=== PATIENT | male | born 1970 | race Hispanic/Latino ===

== ENCOUNTER 2023-06-04 14:44 | Emergency (ER) | payer SELFPAY ==
[2023-06-04 15:26] LABS: Protime INR 1.06
[2023-06-04 15:40] LABS: Absolute Lymphocytes (CBC) 2.9 K/uL (0.7-4.9); Hematocrit 44.2 % (39.6-49.0); Lymphocytes % 12.8 % (15.3-44.8); MCV 92.3 fL (80-100); MPV 9.4 fL (7.6-11.3); Platelets 322 thou/uL (152-406); RBC Red Blood Cell Count 4.79 M/uL (4.33-5.43)
[2023-06-04 15:42] LABS: Albumin 3.6 g/dL (3.4-5.0); Bilirubin Direct 0.1 mg/dL (0-0.2); Bilirubin Indirect, Calculated 0.3 mg/dL (0.2-0.8); Bilirubin Total 0.4 mg/dL (0.2-1.0); Magnesium 2.2 mg/dL (1.6-2.4); Potassium 3.9 mEq/L (3.5-5.1); Protein, Total 7.7 g/dL (6.4-8.2); Troponin High Sensitivity 10.7 pg/mL (<58.9)
--- NOTE | 2023-06-04 15:44 | RAD REPORT ---
EXAM DESCRIPTION: Mitzy Single View06/04/2023 3:27 pm CLINICAL HISTORY: Chest pain COMPARISON: none FINDINGS: The lungs appear clear of acute infiltrate. The heart is normal size IMPRESSION: No acute abnormalities displayed
[2023-06-04] MEDS ORDERED: NA CHLORIDE 0.9% 1,000 ML ONE (16:44)
--- NOTE | 2023-06-04 16:49 | EDPHYS ---
Physician Documentation [facility] Name: Caesar Hurt Age: 52 yrs Sex: Male : 1970 Arrival Date: 06/04/2023 Time: 14:44 Bed 8 Private MD: ED Physician Rakel Keyes HPI: 06/04 16:37 This 52 yrs old Male presents to ER via EMS with complaints of Chest Pain. cp3 16:37 The patient or guardian reports chest pain that is located primarily in the anterior cp3 chest wall, left. Onset: acutely, 1 hour(s) ago. The pain does not radiate. Associated signs and symptoms: The patient has no apparent associated signs or symptoms. The chest pain is described as aching, clutching. Duration: The patient or guardian reports a single episode, that is now resolved. Modifying factors: The symptoms are alleviated by rest, the symptoms are aggravated by cough. Severity of pain: At its worst the pain was moderate today. Historical: - Allergies: 15:12 No Known Allergies; bp - PMHx: 15:12 Hypertensive disorder; bp - Immunization history:: Adult Immunizations up to date. - Social history:: Smoking status: Patient denies any tobacco usage or history of. - Family history:: not pertinent. ROS: 16:37 Constitutional: Negative for fever, chills, and weight loss, Eyes: Negative for injury, cp3 pain, redness, and discharge, ENT: Negative for injury, pain, and discharge, Neck: Negative for injury, pain, and swelling, Cardiovascular: Negative for chest pain, palpitations, and edema, Respiratory: Negative for shortness of breath, cough, wheezing, and pleuritic chest pain, Abdomen/GI: Negative for abdominal pain, nausea, vomiting, diarrhea, and constipation, Back: Negative for injury and pain, : Negative for injury, bleeding, discharge, and swelling, MS/Extremity: Negative for injury and deformity, Skin: Negative for injury, rash, and discoloration, Neuro: Negative for headache, weakness, numbness, tingling, and seizure, Psych: Negative for depression, anxiety, suicide ideation, homicidal ideation, and hallucinations, Allergy/Immunology: Negative for hives, rash, and allergies, Endocrine: Negative for neck swelling, polydipsia, polyuria, polyphagia, and marked weight changes, Hematologic/Lymphatic: Negative for swollen nodes, abnormal bleeding, and unusual bruising. Exam: 16:37 Constitutional: This is a well developed, well nourished patient who is awake, alert, cp3 and in no acute distress. Head/Face: Normocephalic, atraumatic. Eyes: Pupils equal round and reactive to light, extra-ocular motions intact. Lids and lashes normal. Conjunctiva and sclera are non-icteric and not injected. Cornea within normal limits. Periorbital areas with no swelling, redness, or edema. ENT: Nares patent. No nasal discharge, no septal abnormalities noted. Tympanic membranes are normal and external auditory canals are clear. Oropharynx with no redness, swelling, or masses, exudates, or evidence of obstruction, uvula midline. Mucous membranes moist. Neck: Trachea midline, no thyromegaly or masses palpated, and no cervical lymphadenopathy. Supple, full range of motion without nuchal rigidity, or vertebral point tenderness. No Meningismus. Chest/axilla: Normal chest wall appearance and motion. Nontender with no deformity. No lesions are appreciated. Cardiovascular: Regular rate and rhythm with a normal S1 and S2. No gallops, murmurs, or rubs. Normal PMI, no JVD. No pulse deficits. Respiratory: Lungs have equal breath sounds bilaterally, clear to auscultation and percussion. No rales, rhonchi or wheezes noted. No increased work of breathing, no retractions or nasal flaring. Abdomen/GI: Soft, non-tender, with normal bowel sounds. No distension or tympany. No guarding or rebound. No evidence of tenderness throughout. Back: No spinal tenderness. No costovertebral tenderness. Full range of motion. Skin: Warm, dry with normal turgor. Normal color with no rashes, no lesions, and no evidence of cellulitis. MS/ Extremity: Pulses equal, no cyanosis. Neurovascular intact. Full, normal range of motion. Neuro: Awake and alert, GCS 15, oriented to person, place, time, and situation. Cranial nerves II-XII grossly intact. Motor strength 5/5 in all extremities. Sensory grossly intact. Cerebellar exam normal. Normal gait. Psych: Awake, alert, with orientation to person, place and time. Behavior, mood, and affect are within normal limits. Vital Signs: 14:45 BP 148 / 87; Pulse 70; Resp 16; Temp 98; Pulse Ox 98% ; bp 15:41 BP 164 / 94; Pulse 72; Resp 18; Pulse Ox 100% on R/A; ld1 Procedures: 16:37 Performed EKG interpreted by me at 1456 rate 66 normal sinus rhythm no evidence of cp3 acute. MDM: 15:14 Patient medically screened. cp3 16:37 Differential diagnosis: acute myocardial infarction, coronary artery disease congestive cp3 heart failure gastritis, stable angina. HEART Score: History: Moderately Suspicious (1), ECG: Normal (0), Age: > 45 and < 65 years (1), Risk Factors: 1 or 2 risk factors (1), Troponin: < or = 1 x Normal Limit (0), Total Score = 2. 16:37 The patient was not given aspirin in the Emergency Department. Patient reports taking cp3 aspirin within the past 24 hours. Data reviewed: vital signs, nurses notes, EMS record. Consideration of Admission/Observation Escalation of care including admission/observation considered. hospitalization considered. patient declined. I considered the following discharge prescriptions or medication management in the emergency department Medications were administered in the Emergency Department. See MAR. Independent interpretation of the following test(s) in the Emergency Department X-Ray: My interpretation is no actue cardiopulmonary process. Response to treatment: the patient's condition has returned to base line. ED course: patient with elevated wbc count- patient on steroids for an acute bronchitis along with oral antibiotics. 06/04 14:48 Order name: Basic Metabolic Panel; Complete Time: 16:18 bp 06/04 14:48 Order name: CBC with Diff bp 06/04 14:48 Order name: LFT's; Complete Time: 16:18 bp 06/04 14:48 Order name: Magnesium; Complete Time: 16:18 bp 06/04 14:48 Order name: NT PRO-BNP; Complete Time: 16:18 bp 06/04 14:48 Order name: PT-INR; Complete Time: 16:18 bp 06/04 14:48 Order name: Troponin HS; Complete Time: 16:18 bp 06/04 14:48 Order name: XRAY Chest (1 view); Complete Time: 16:18 bp 06/04 14:48 Order name: EKG; Complete Time: 14:57 bp 06/04 14:48 Order name: Cardiac monitoring; Complete Time: 15:06 bp 06/04 14:48 Order name: EKG - Nurse/Tech; Complete Time: 15:05 bp 06/04 14:48 Order name: IV Saline Lock; Complete Time: 15:05 bp 06/04 14:48 Order name: Labs collected and sent; Complete Time: 15:06 bp 06/04 14:48 Order name: O2 Per Protocol; Complete Time: 15:05 bp 06/04 14:48 Order name: O2 Sat Monitoring; Complete Time: 15:05 bp Administered Medications: 16:38 Not Given (Physician Discretion): NS 0.9% IV 1000 ml IV at 1 bolus Per protocol; 1000 ld1 mL bolus Disposition Summary: 06/04/23 16:48 Discharge Ordered Location: Home cp3 Condition: Stable cp3 Diagnosis - Chest pain, unspecified cp3 Followup: cp3 - With: Rick Connor DO - When: As needed - Reason: Followup: cp3 - With: Madi Delgado MD - When: 1 week - Reason: Recheck today's complaints Discharge Instructions: - Discharge Summary Sheet ld1 Forms: - Medication Reconciliation Form cp3 - Thank You Letter cp3 - Antibiotic Education cp3 - Prescription Opioid Use cp3 - Patient Portal Instructions cp3 - Leadership Thank You Letter cp3 - Work release form ld1 Signatures: Dispatcher [employer] Rakel Sher MD MD cp3 Osmel Garcia RN RN Jael Mcgregor RN ld1
--- NOTE | 2023-06-04 16:49 | ER ---
Nurse's Notes [facility] Name: Caesar Hurt Age: 52 yrs Sex: Male : 1970 Arrival Date: 06/04/2023 Time: 14:44 Bed 8 Private MD: Diagnosis: Chest pain, unspecified Presentation: 06/04 14:45 Chief complaint: EMS states: DEVELOPED LEFT CHEST PAIN WHILE AT WORK. Coronavirus bp screen: At this time, the client does not indicate any symptoms associated with coronavirus-19. Ebola Screen: No symptoms or risks identified at this time. Initial Sepsis Screen: Does the patient meet any 2 criteria? No. Patient's initial sepsis screen is negative. Does the patient have a suspected source of infection? No. Patient's initial sepsis screen is negative. Risk Assessment: Do you want to hurt yourself or someone else? Patient reports no desire to harm self or others. Onset of symptoms was June 04, 2023. Care prior to arrival: Medication(s) given: ASA, 81 mg, x 4, Nitroglycerin, 0.4 mg SL x 1, IV initiated. 18 GA, in the right antecubital area, Glucose check: 96. 14:45 Method Of Arrival: EMS: [facility] bp 14:45 Acuity: VALENTE 3 bp Triage Assessment: 15:12 General: Appears in no apparent distress. Behavior is calm, cooperative, appropriate bp for age. Pain: Complains of pain in chest. EENT: No deficits noted. Neuro: No deficits noted. Cardiovascular: Reports chest pain. Respiratory: No deficits noted. GI: No signs and/or symptoms were reported involving the gastrointestinal system. : No signs and/or symptoms were reported regarding the genitourinary system. Derm: No deficits noted. Musculoskeletal: No deficits noted. Historical: - Allergies: 15:12 No Known Allergies; bp - PMHx: 15:12 Hypertensive disorder; bp - Immunization history:: Adult Immunizations up to date. - Social history:: Smoking status: Patient denies any tobacco usage or history of. - Family history:: not pertinent. Screenin:13 [facility] ED Fall Risk Assessment (Adult) History of falling in the last 3 months, bp including since admission No falls in past 3 months (0 pts). Abuse screen: Denies threats or abuse. Denies injuries from another. Nutritional screening: No deficits noted. Tuberculosis screening: No symptoms or risk factors identified. Assessment: 15:13 General: SEE TRIAGE NOTE. bp Vital Signs: 14:45 BP 148 / 87; Pulse 70; Resp 16; Temp 98; Pulse Ox 98% ; bp 15:41 BP 164 / 94; Pulse 72; Resp 18; Pulse Ox 100% on R/A; ld1 ED Course: 14:47 Patient arrived in ED. ld1 14:48 Osmel Garcia, RN is Primary Nurse. bp 14:49 Rakel Keyes MD is Attending Physician. cp3 15:12 Triage completed. bp 15:12 Arm band placed on. bp 15:13 Patient has correct armband on for positive identification. Bed in low position. Call bp light in reach. Side rails up X2. Client placed on continuous cardiac and pulse oximetry monitoring. NIBP monitoring applied. 15:13 Maintain EMS IV. Dressing intact. Good blood return noted. Site clean \T\ dry. Gauge \T\ bp site: 18 GA R AC. Patient maintains SpO2 saturation greater than 95% on room air. 15:28 XRAY Chest (1 view) In Process Unspecified. EDMS 16:47 Rick Connor DO is Referral Physician. cp3 16:47 Madi Delgado MD is Referral Physician. cp3 16:56 No provider procedures requiring assistance completed. IV discontinued, intact, ld1 bleeding controlled, No redness/swelling at site. Administered Medications: 16:38 Not Given (Physician Discretion): NS 0.9% IV 1000 ml IV at 1 bolus Per protocol; 1000 ld1 mL bolus Medication: 15:13 VIS not applicable for this client. bp Outcome: 16:48 Discharge ordered by . cp3 16:56 Discharged to home ambulatory. ld1 16:56 Condition: stable 16:56 Discharge instructions given to patient, Instructed on discharge instructions, follow up and referral plans. Demonstrated understanding of instructions, follow-up care. 16:56 Patient left the ED. ld1 Signatures: Dispatcher [employer] Rakel Sher MD MD cp3 Osmel Garcia, RN RN bp Jael Farias RN RN ld1
[2023-06-04 17:19] VITALS: TEMP 98
[2023-06-04 17:20] VITALS: BP 164/94; O2SAT 100
[2023-06-04 17:51] LABS: Blood Morphology Comment NOT SEEN (NOT SEEN); Platelet Estimate ADEQ
--- NOTE | 2023-06-04 18:08 | EKG ---
Test Date: 2023-06-04 Test Time: 14:56:55 [employer]: BP MEASUREMENT RESULTS: Intervals: Rate: 66 TX: 154 QRSD: 106 QT: 400 QTc: 419 [place]: P: 24 TX: 154 QRS: -11 T: 40 INTERPRETIVE STATEMENTS: Normal sinus rhythm Normal ECG No previous ECG available for comparison Electronically Signed On 06-04-23 18:00:08 CDT by Madi Delgado
== END 2023-06-04 16:56 | disposition home or self-care (01) ==
LOC: ER 14:44
DX: R07.89 Other chest pain (principal); I10 Essential (primary) hypertension
CPT/HCPCS: 36415; 71045; 80048; 80076; 83735; 83880; 84484; 85025; 85610; 93005; 99284; J7030

== ENCOUNTER 2024-06-01 11:38 | Emergency (ER) | payer SELFPAY ==
--- NOTE | 2024-06-01 12:28 | RAD REPORT ---
EXAM DESCRIPTION: RAD - Chest Pa And Lat (2 Views) - 06/01/2024 12:16 pm CLINICAL HISTORY: COUGH COMPARISON: Chest Single View dated 06/04/2023 FINDINGS: Lines: None. Lungs: No evidence of edema or pneumonia. Pleural: No significant pleural effusions or pneumothorax. Cardiac: The heart size is within normal limits. Mediastinum: Within normal limits. Bones: No acute fractures. Other: None IMPRESSION: No acute cardiopulmonary disease.
[2024-06-01 12:50] LABS: SARS-CoV-2 Antigen CONTROL BLUE LINE VIS/BG OK; SARS-CoV-2 Antigen Rapid Res Negative (Negative)
[2024-06-01] MEDS ORDERED: AZITHROMYCIN 250 MG TAB ONE (15:00)
--- NOTE | 2024-06-01 15:12 | ER ---
Nurse's Notes [facility] Name: Caesar Hurt Age: 53 yrs Sex: Male : 1970 Arrival Date: 06/01/2024 Time: 11:38 Bed 10 Private MD: Diagnosis: Acute upper respiratory infection, unspecified;Cough Presentation: 06/01 12:01 Chief complaint: Patient states: COUGH, CONGESTION WITH FLU LIKE SYMPTOMS STARTED db SUNDAY. Coronavirus screen: Client denies travel out of the [place] in the last 14 days. At this time, the client does not indicate any symptoms associated with coronavirus-19. Ebola Screen: Patient negative for fever greater than or equal to 101.5 degrees Fahrenheit, and additional compatible Ebola Virus Disease symptoms Patient denies exposure to infectious person. Patient denies travel to an Ebola-affected area in the 21 days before illness onset. No symptoms or risks identified at this time. Initial Sepsis Screen: Does the patient meet any 2 criteria? No. Patient's initial sepsis screen is negative. Does the patient have a suspected source of infection? No. Patient's initial sepsis screen is negative. Risk Assessment: Do you want to hurt yourself or someone else? Patient reports no desire to harm self or others. Onset of symptoms was May 30, 2024. 12:01 Method Of Arrival: Ambulatory db 12:01 Acuity: VALENTE 4 db Triage Assessment: 12:03 General: Appears in no apparent distress. comfortable, Behavior is calm, cooperative. db Pain:. EENT: Reports nasal congestion. Neuro: Level of Consciousness is awake, alert, obeys commands, Oriented to person, place, time, situation. Respiratory: Airway is patent Respiratory effort is even, unlabored, Respiratory pattern is regular, symmetrical. Historical: - Allergies: 12:03 No Known Allergies; db - PMHx: 12:03 Hypertensive disorder; db - Immunization history:: Adult Immunizations unknown. - Infectious Disease History:: Denies. - Social history:: Smoking status: Patient denies any tobacco usage or history of. Screenin:28 [facility] ED Fall Risk Assessment (Adult) History of falling in the last 3 months, tl4 including since admission No falls in past 3 months (0 pts) Confusion or Disorientation No (0 pts) Intoxicated or Sedated No (0 pts) Impaired Gait No (0 pts) Mobility Assist Device Used No (0 pt) Altered Elimination No (0 pt) Score/Fall Risk Level 0 - 2 = Low Risk Oriented to surroundings, Maintained a safe environment, Educated pt \T\ family on fall prevention, incl call for assistance when getting out of bed, Assessed \T\ reinforced patient's understanding of fall precautions. Abuse screen: Denies threats or abuse. Denies injuries from another. Nutritional screening: No deficits noted. Tuberculosis screening: No symptoms or risk factors identified. Assessment: 12:30 General: Appears in no apparent distress. Behavior is calm, cooperative. Pain: Denies tl4 pain. Neuro: Level of Consciousness is awake, alert, obeys commands, Oriented to person, place, time, situation. Cardiovascular: Capillary refill < 3 seconds Patient's skin is warm and dry. Respiratory: Reports cough that is Airway is patent Respiratory effort is even, unlabored, Respiratory pattern is regular, symmetrical. GI: No signs and/or symptoms were reported involving the gastrointestinal system. : No signs and/or symptoms were reported regarding the genitourinary system. EENT: No signs and/or symptoms were reported regarding the EENT system. Derm: No signs and/or symptoms reported regarding the dermatologic system. Musculoskeletal: Reports generalized body aches. 13:44 Reassessment: Patient and/or family updated on plan of care and expected duration. Pain tl4 level reassessed. Patient is alert, oriented x 3, equal unlabored respirations, skin warm/dry/pink. Pt updated on status. Pt denies any needs at this time. Call scott at bedside. Will continue to monitor. 14:33 Reassessment: Patient and/or family updated on plan of care and expected duration. Pain tl4 level reassessed. Patient is alert, oriented x 3, equal unlabored respirations, skin warm/dry/pink. Pt denies any needs at this time. Call scott at bedside. Will continue to monitor. 15:19 Reassessment: Patient appears in no apparent distress at this time. Patient and/or db family updated on plan of care and expected duration. Pain level reassessed. Patient is alert, oriented x 3, equal unlabored respirations, skin warm/dry/pink. Vital Signs: 12:01 BP 143 / 87; Pulse 74; Resp 16; Temp 98.1(O); Pulse Ox 97% ; Weight 104.33 kg; Height 5 db ft. 5 in. ; 12:29 BP 153 / 74; Pulse 64; Resp 18; Pulse Ox 99% on R/A; tl4 15:00 BP 138 / 79; Pulse 78; Resp 16; Temp 98.1; Pulse Ox 100% on R/A; db 12:01 Body Mass Index 38.27 (104.33 kg, 165.1 cm) db ED Course: 11:42 Patient arrived in ED. im 11:53 Gentry Lyle MD is Attending Physician. [facility] 12:03 Triage completed. db 12:03 Arm band placed on Patient placed in an exam room. db 12:17 Chest Pa And Lat (2 Views) XRAY In Process Unspecified. EDMS 12:28 SARS RAPID Sent. tl4 12:28 Flu Sent. tl4 12:28 No provider procedures requiring assistance completed. COVID swab sent to lab. Flu tl4 and/or RSV swab sent to lab. Patient did not have IV access during this emergency room visit. 12:29 Patient has correct armband on for positive identification. Bed in low position. Call tl4 light in reach. Side rails up X 1. Provided Education on: ed process, call scott. Client placed on continuous cardiac and pulse oximetry monitoring. NIBP monitoring applied. Door closed. Noise minimized. Lights dimmed. Moved to private room. Administered Medications: 15:01 Drug: AZITHromycin PO 500 mg PO once Route: PO; tl4 15:20 Follow up: Response: No adverse reaction db Medication: 12:29 VIS not applicable for this client. tl4 Outcome: 15:11 Discharge ordered by . [facility] 15:19 Discharged to home ambulatory, db 15:19 Condition: stable 15:19 Discharge instructions given to patient, Instructed on discharge instructions, follow up and referral plans. Prescriptions given X 3, 15:20 Patient left the ED. db Signatures: Dispatcher [employer] Gentry Infante MD MD cha Benton, Danielle, RN RN Barbara Carvalho Patrice Castle RN RN tl4
--- NOTE | 2024-06-01 15:12 | EDPHYS ---
Physician Documentation [facility] Name: Caesar Hurt Age: 53 yrs Sex: Male : 1970 Arrival Date: 06/01/2024 Time: 11:38 Bed 10 Private MD: ED Physician Gentry Lyle HPI: 06/01 15:07 This 53 yrs old Male presents to ER via Ambulatory with complaints of Flu mel Symptoms. 15:07 The patient or guardian reports cough. Onset: The symptoms/episode began/occurred 2 mel day(s) ago. Severity of symptoms: At their worst the symptoms were moderate, in the emergency department the symptoms are unchanged. Modifying factors: The symptoms are alleviated by nothing, the symptoms are aggravated by nothing. The patient has experienced similar episodes in the past, a few times. Historical: - Allergies: 12:03 No Known Allergies; db - PMHx: 12:03 Hypertensive disorder; db - Immunization history:: Adult Immunizations unknown. - Infectious Disease History:: Denies. - Social history:: Smoking status: Patient denies any tobacco usage or history of. ROS: 15:07 Constitutional: Negative for fever, chills, and weight loss, Eyes: Negative for injury, mel pain, redness, and discharge, ENT: Negative for injury, pain, and discharge, Neck: Negative for injury, pain, and swelling, Cardiovascular: Negative for chest pain, palpitations, and edema, Abdomen/GI: Negative for abdominal pain, nausea, vomiting, diarrhea, and constipation, Back: Negative for injury and pain, : Negative for injury, bleeding, discharge, and swelling, MS/Extremity: Negative for injury and deformity, Skin: Negative for injury, rash, and discoloration, Neuro: Negative for headache, weakness, numbness, tingling, and seizure, Psych: Negative for depression, anxiety, suicide ideation, homicidal ideation, and hallucinations, Allergy/Immunology: Negative for hives, rash, and allergies, Endocrine: Negative for neck swelling, polydipsia, polyuria, polyphagia, and marked weight changes, Hematologic/Lymphatic: Negative for swollen nodes, abnormal bleeding, and unusual bruising, 15:07 Respiratory: Positive for cough, with no reported sputum, Exam: 15:07 Constitutional: This is a well developed, well nourished patient who is awake, alert, mel and in no acute distress. Head/Face: Normocephalic, atraumatic. Eyes: Pupils equal round and reactive to light, extra-ocular motions intact. Lids and lashes normal. Conjunctiva and sclera are non-icteric and not injected. Cornea within normal limits. Periorbital areas with no swelling, redness, or edema. ENT: Nares patent. No nasal discharge, no septal abnormalities noted. Tympanic membranes are normal and external auditory canals are clear. Oropharynx with no redness, swelling, or masses, exudates, or evidence of obstruction, uvula midline. Mucous membranes moist. Neck: Trachea midline, no thyromegaly or masses palpated, and no cervical lymphadenopathy. Supple, full range of motion without nuchal rigidity, or vertebral point tenderness. No Meningismus. Chest/axilla: Normal chest wall appearance and motion. Nontender with no deformity. No lesions are appreciated. Cardiovascular: Regular rate and rhythm with a normal S1 and S2. No gallops, murmurs, or rubs. Normal PMI, no JVD. No pulse deficits. Abdomen/GI: Soft, non-tender, with normal bowel sounds. No distension or tympany. No guarding or rebound. No evidence of tenderness throughout. Back: No spinal tenderness. No costovertebral tenderness. Full range of motion. Male : Normal genitalia with no discharge or lesions. Skin: Warm, dry with normal turgor. Normal color with no rashes, no lesions, and no evidence of cellulitis. MS/ Extremity: Pulses equal, no cyanosis. Neurovascular intact. Full, normal range of motion. Neuro: Awake and alert, GCS 15, oriented to person, place, time, and situation. Cranial nerves II-XII grossly intact. Motor strength 5/5 in all extremities. Sensory grossly intact. Cerebellar exam normal. Normal gait. Psych: Awake, alert, with orientation to person, place and time. Behavior, mood, and affect are within normal limits. 15:07 Respiratory: the patient does not display signs of respiratory distress, Respirations: normal, no acute changes, labored breathing, is not present, Breath sounds: rhonchi, that are mild, are scattered, Respiratory rate: 18 Vital Signs: 12:01 BP 143 / 87; Pulse 74; Resp 16; Temp 98.1(O); Pulse Ox 97% ; Weight 104.33 kg; Height 5 db ft. 5 in. ; 12:29 BP 153 / 74; Pulse 64; Resp 18; Pulse Ox 99% on R/A; tl4 15:00 BP 138 / 79; Pulse 78; Resp 16; Temp 98.1; Pulse Ox 100% on R/A; db 12:01 Body Mass Index 38.27 (104.33 kg, 165.1 cm) db MDM: 12:03 Patient medically screened. [facility] 15:09 Differential Diagnosis: Obstructed Airway Bronchitis Influenza Upper Respiratory mel Infection Pharyngitis Asthma Exacerbation Viral Syndrome Pneumonia. Data reviewed: vital signs, nurses notes, lab test result(s), radiologic studies, CT scan, plain films. Consideration of Admission/Observation Escalation of care including admission/observation considered. Independent interpretation of the following test(s) in the Emergency Department X-Ray: My interpretation is CXR NEG. Test considered but Not performed: Labs: NO LABS, CBC , COMP MET. Care significantly affected by the following chronic conditions: Hypertension. 06/01 12:16 Order name: Flu hb 06/01 12:16 Order name: SARS RAPID hb 06/01 11:54 Order name: Chest Pa And Lat (2 Views) XRAY mel Administered Medications: 15:01 Drug: AZITHromycin PO 500 mg PO once Route: PO; tl4 15:20 Follow up: Response: No adverse reaction db Disposition Summary: 06/01/24 15:11 Discharge Ordered Notes: Location: Home mel Problem: new mel Symptoms: have improved mel Condition: Stable mel Diagnosis - Acute upper respiratory infection, unspecified mel - Cough mel Followup: mel - With: Private Physician - When: 2 - 3 days - Reason: Recheck today's complaints, Continuance of care, Re-evaluation by your physician Discharge Instructions: - Discharge Summary Sheet mel - Upper Respiratory Infection, Adult mel - Cool Mist Vaporizer mel - Upper Respiratory Infection, Adult, [id number] mel - Cough, Adult mel Forms: - Medication Reconciliation Form mel - Antibiotic Education mel - Prescription Opioid Use mel - Patient Portal Instructions mel - Leadership Thank You Letter mel - Work release form eb Prescriptions: - Tessalon Perles 100 mg Oral capsule - take 2 capsule ORAL route every 8 hours As needed; 30 capsule; Refills: 0, mel Product Selection Permitted - Medrol (Melo) 4 mg Oral Tablets, Dose Pack - take 1 tablet ORAL route as directed - follow package instructions; 1 packet; mel Refills: 0, Product Selection Permitted - Zithromax 500 mg Oral Tablet - take 1 tablet ORAL route once daily for 5 days; 5 tablet; Refills: 0, Product mel Selection Permitted Signatures: Dispatcher [employer] EDGentry Wei MD MD cha Benton, Danielle, RN RN db Patrice Castle RN RN tl4 Corrections: (The following items were deleted from the chart) 12:16 12:16 Influenza Screen (A \T\ B)+BA.LAB.BRZ ordered. EDMS EDMS 12:16 12:16 SARS-COV-2 Antigen Rapid+I.LAB.BRZ ordered. EDMS EDMS
[2024-06-01 15:32] VITALS: TEMP 98.1
[2024-06-01 15:35] VITALS: BP 138/79; O2SAT 100
--- OUTSIDE RECORDS SUMMARY | 2024-06-03 12:37 | XMS REPORT | Continuity of Care Document ---
Author Name Unknown Address [address] [facility] [address] [place] [address] [facility] thconnect Address [address] [facility] [address] [place] [address] Care Team Providers Care Estimator Jewelry Name Role Phone Amarilys Mckeon M.D. Primary Care Physician QUEENIE CHAVES Attending Clinician Unavailable Marlo Brown MD Attending Clinician [phone] Queenie Chaves MD Attending Clinician [phone] COLLINS FAIR Attending Clinician Unavailable Collins Fair DO Attending Clinician [phone] KEYSHA BARNES Attending Clinician Unavailable Keysha Marquez Attending Clinician [phone] Leonila Long RN Attending Clinician Unavailable Lydia Zayas Attending Clinician [phone] Doctor Unassigned, [place] Attending Clinician U ta Lab, Adc Fam Pob I Attending Clinician Unavailab Esmer Rg Attending Clinician [phone] Paula Thomas RN Attending Clinician Unavailable ESMER FRANZ Attending Clinician Unavailable MARLO BROWN Admitting Clinician Unavailable COLLINS FAIR Admitting Clinician Unavailable Payers Payer Name Policy Type Policy Number Effective Date Expirati on Date Source [employer] [id number] 2022 00:00:00 Problems Condition Name Condition Details Condition Category Status Onset Date Resolution Date Last Treatment Date Treating Clinician Comments Source No known active problems No known active problems Disease [facility] Allergies, Adverse Reactions, Alerts Allergy Name Allergy Type Status Severity Reaction(s) Onset Date Inactive Date Treating Clinician Comments Source NO KNOWN ALLERGIE S Drug Class Active [facility] Social History Social Habit Start Date Stop Date Quantity Comments Source Gender identity [facility] Exposure to SARS-CoV-2 (event) 2023-01-15 00:00:00 2023-01-25 20:45:00 Not sure [facility] Sex Assigned At 1970 00:00:00 1970 00:00:00 [facility] Smoking Status Start Date Stop Date Source Tobacco smoking consumption unknown [facility] Medications Ordered Medication Name Filled Medication Name Start Date Stop Date Current Medication? Ordering Clinician Indication Dosage Frequency Signature (SIG) Comments Components Source telmisartan 40 mg tablet 04-10 00:00: 00 Yes 1mg Luis M Roper TAKE 10 ML BY MOUTH EVERY 4 TO 6 HOURS NEEDED FOR COUGH. 1-10 00:00: 00 12-03 00:00 :00 No [id number] Luis M Roper dexamethaso ne sod phos PF injection 8 mg 2022-10 13:00: 00 10-03 12:53 :00 No 8mg 8 mg, Oral, ONCE, 1 dose, On Sun10/03/23 at 0700, 1 mL [facility] methylPREDN ISolone 4 mg tablets 2022-10- 00:00: 00 Yes [id number] Take by mouth SEE-INSTRU CTIONS. follow package directions [facility] levoFLOXaci n 500 mg tablet 2022-10 00:00: 00 Yes [id number] 500mg Take 1 tablet by mouth every 24 (twenty-fo ur) hours. [facility] dextrometho rphan-guaif enesin 10-100 mg/5 mL solution 2022-10 00:00: 00 Yes [id number] 10mL Take 10 mL by mouth every 6 (six) hours as needed for Cough. [facility] albuterol 90 mcg/actuati on inhaler 2022-10 00:00: 00 Yes [id number] 2{puff} Inhale 2 Puffs every 4 (four) hours as needed for Wheezing or Shortness of Breath. [facility] LEVOFLOXACI N 500MG 2022-10 00:00: 00 12-03 00:00 :00 Cori Roper INHALE 2 PUFFS EVERY 4 HOURS NEEDED FOR WHEEZING OR SHORTNESS OF BREATH 2022-10 00:00: 00 12-03 00:00 :00 Cori Roper TAKE 6 TABLETS ON DAY 1 DIRECTED ON PACKAGE AND DECREASE BY 1 TAB EACH DAY FOR A TOTAL OF 6 DAYS 2022-10 00:00: 00 12-03 00:00 :00 Cori Roper ipratropium -albuteroL (DUONEB) 0.5 mg-3 mg(2.5 mg base)/3 mL nebulizer solution 3 mL 06-01 13:00: 00 Yes 3mL 3 mL, Inhalation , QID, First dose on Sun06/01/23 at 0800, Until Discontinu ed, Routine [facility] methylpredn isolone sod succ (SOLU-MEDRO L) injection 125 mg 06-01 05:00: 00 Yes 125mg 125 mg, Intravenou s, Q6H, First dose on Sun06/01/23 at 0000, Until Discontinu ed, Routine [facility] albuterol 90 mcg/actuati on inhaler 05-31 00:00: 00 Yes [id number] 2{puff} Inhale 2 Puffs every 4 (four) hours as needed for Wheezing or Shortness of Breath. [facility] TAKE 1 TABLET BY MOUTH TWICE A DAY 05-31 00:00: 00 12-03 00:00 :00 Cori Roper TAKE 1 TABLET EVERY 12 HOURS DAILY. 05-29 00:00: 00 12-03 00:00 :00 No [id number] Luis M Roper TAKE 1 CAPSULE BY MOUTH TWICE DAILY UNTIL GONE 8-15 00:00: 00 12-03 00:00 :00 No Luis M Roper AMOXICILLIN 500MG -02 00:00: 00 12-03 00:00 :00 No Luis M Roper HYDROcodone -acetaminop hen (NORCO 5) 5-325 mg tablet 1 tablet 01-26 02:47: 00 01-26 02:55 :00 No 1{tbl} 1 tablet, Oral, ONCE, 1 dose, On [facility] 01/25/23 at 2200, DHARMESH [facility] amoxicillin -clavulanat e (AUGMENTIN) 875-125 mg per tablet 1 tablet 01-26 02:47: 00 01-26 02:55 :00 No 1{tbl} 1 tablet, Oral, ONCE, 1 dose, On [facility] 01/25/23 at 2200, DHARMESH
Re ason for Anti-Infec tive: Documented Infection< br>Documen abdullahi Infection Site: HEENT
D uration of Therapy: Other (see Comments) [facility] PLEASE SEE ATTACHED FOR DETAILED DIRECTIONS 01-26 00:00: 00 12-03 00:00 :00 Cori Roper AMOX/K CLAV [id number] 1230-0 4-14 00:00: 00 12-03 00:00 :00 Cori Luis M Roper ibuprofen 600 mg tablet 01-25 00:00: 00 Yes [id number] 600mg Take 1 tablet by mouth every 8 (eight) hours as needed for Pain (scale 4-6). [facility] TAKE 1 TABLET BY MOUTH IN THE MORNING AND IN THE EVENING FOR 10 DAYS 01-25 00:00: 00 12-03 00:00 :00 Cori Roper TAKE 1 TABLET BY MOUTH EVERY 8 HOURS NEEDED FOR PAIN (SCALE 4-6). 01-25 00:00: 00 12-03 00:00 :00 [facility] amox[facility] -clavulanat e 875-125 mg per tablet 01-25 00:00: 00 02-05 04:59 :00 No [id number] 1{tbl} Take 1 tablet by mouth in the morning and 1 tablet in the evening. Do all this for 10 days. [facility] traMADoL 50 mg tablet 01-25 00:00: 00 02-02 04:59 :00 No [id number] 50mg Take 1 tablet by mouth every 8 (eight) hours as needed for Pain (scale 4-6) for up to 7 days. Indication s: acute pain [facility] No known medications No Un didi [facility] Vital Signs Vital Name Observation Time Observation Value Comments S ource Systolic blood pressure 2023-10-03 12:21:00 144 mm[Hg] [facility] Diastolic blood pressure 2023-10-03 12:21:00 93 mm[Hg] [facility] Heart rate 2023-10-03 12:21:00 62 /min [facility] Body temperature 2023-10-03 12:21:00 36.72 Pennie [facility] Respiratory rate 2023-10-03 12:21:00 18 /min [facility] Body height 2023-10-03 12:21:00 165.1 cm [facility] Body weight 2023-10-03 12:21:00 103.964 kg [facility] BMI 2023-10-03 12:21:00 38.14 kg/m2 [facility] Oxygen saturation in Arterial blood by Pulse oximetry 2023-10-03 12:21:00 97 /min [facility] Systolic blood pressure 2023-06-01 04:00:00 147 mm[Hg] [facility] Diastolic blood pressure 2023-06-01 04:00:00 89 mm[Hg] [facility] Heart rate 2023-06-01 04:00:00 74 /min [facility] Respiratory rate 2023-06-01 04:00:00 15 /min [facility] Oxygen saturation in Arterial blood by Pulse oximetry 2023-06-01 04:00:00 96 /min [facility] Body temperature 2023-06-01 02:39:00 36.78 Pennie [facility] Body height 2023-06-01 02:39:00 165.1 cm [facility] Body weight 2023-06-01 02:39:00 102.967 kg [facility] BMI 2023-06-01 02:39:00 37.77 kg/m2 [facility] Systolic blood pressure 2023-01-26 01:37:00 161 mm[Hg] [facility] Diastolic blood pressure 2023-01-26 01:37:00 83 mm[Hg] [facility] Heart rate 2023-01-26 01:37:00 63 /min [facility] Body temperature 2023-01-26 01:37:00 36.72 Pennie [facility] Respiratory rate 2023-01-26 01:37:00 17 /min [facility] Body height 2023-01-26 01:37:00 165.1 cm [facility] Body weight 2023-01-26 01:37:00 104.327 kg [facility] BMI 2023-01-26 01:37:00 38.27 kg/m2 [facility] Oxygen saturation in Arterial blood by Pulse oximetry 2023-01-26 01:37:00 97 /min [facility] Systolic blood pressure 2021-05-26 01:44:00 143 mm[Hg] [facility] Diastolic blood pressure 2021-05-26 01:44:00 91 mm[Hg] [facility] Heart rate 2021-05-26 01:44:00 82 /min [facility] Body temperature 2021-05-26 01:44:00 37.5 Pennie [facility] Respiratory rate 2021-05-26 01:44:00 22 /min [facility] Body weight 2021-05-26 01:44:00 95.255 kg [facility] Oxygen saturation in Arterial blood by Pulse oximetry 2021-05-26 01:44:00 98 /min [facility] BP Systolic 2024-05-08 17:23:00 145 mm[Hg] Step hen F Judson BP Diastolic 2024-05-08 17:23:00 70 mm[Hg] Phil phen F Judson Weight Measured 2024-05-08 17:23:00 224.80 pounds Luis M F Judson Height Measured 2024-05-08 17:23:00 65.50 inches Luis M F Judson Body Temperature 2024-05-08 17:23:00 98.30 degrees Luis M F Judson Heart Rate 2024-05-08 17:23:00 60.00 /min Taya en F Judson Respiratory Rate 2024-05-08 17:23:00 Luis M F Judson BP Systolic 2024-04-10 17:46:00 161 mm[Hg] Step hen F Judson BP Diastolic 2024-04-10 17:46:00 94 mm[Hg] Phil phen F Judson Weight Measured 2024-04-10 17:46:00 222.80 pounds Luis M F Judson Height Measured 2024-04-10 17:46:00 65.50 inches Luis M F Judson Body Temperature 2024-04-10 17:46:00 98.30 degrees Luis M F Judson Heart Rate 2024-04-10 17:46:00 81.00 /min Taya en F Judson Respiratory Rate 2024-04-10 17:46:00 Luis M F uJdson Weight Measured 2024-03-13 15:55:00 219.80 pounds Luis M F Judson Height Measured 2024-03-13 15:55:00 65.50 inches Luis M F Judson Body Temperature 2024-03-13 15:55:00 98.20 degrees Luis M F Judson Heart Rate 2024-03-13 15:55:00 62.00 /min Taya en F Judson Respiratory Rate 2024-03-13 15:55:00 Luis M F Judson BP Systolic 2024-03-13 15:55:00 151 mm[Hg] Step hen F Judson BP Diastolic 2024-03-13 15:55:00 100 mm[Hg] Phil phen F Judson BP Systolic 2023-11-26 15:19:00 150 mm[Hg] Step hen F Judson BP Diastolic 2023-11-26 15:19:00 91 mm[Hg] Phil phen F Judson Weight Measured 2023-11-26 15:19:00 225.60 pounds Luis M F Judson Height Measured 2023-11-26 15:19:00 65.50 inches Luis M F Judson Body Temperature 2023-11-26 15:19:00 98.30 degrees Luis M F Judson Heart Rate 2023-11-26 15:19:00 75.00 /min Taya en F Judson Respiratory Rate 2023-11-26 15:19:00 Luis M F Judson BP Systolic 2023-10-24 15:54:00 150 mm[Hg] Step hen F Judson BP Diastolic 2023-10-24 15:54:00 98 mm[Hg] Phil phen F Judson Weight Measured 2023-10-24 15:54:00 227.40 pounds Luis M F Judson Height Measured 2023-10-24 15:54:00 65.50 inches Luis M F Judson Body Temperature 2023-10-24 15:54:00 98.30 degrees Luis M F Judson Heart Rate 2023-10-24 15:54:00 63.00 /min Taya en F Judson Respiratory Rate 2023-10-24 15:54:00 Luis M F Judson BP Systolic 2023-05-29 08:12:00 140 mm[Hg] Step hen F Judson BP Diastolic 2023-05-29 08:12:00 90 mm[Hg] Phil phen F Judson Weight Measured 2023-05-29 08:12:00 227.00 pounds Luis M F Judson Height Measured 2023-05-29 08:12:00 65.50 inches Luis M F Judson Body Temperature 2023-05-29 08:12:00 97.40 degrees Luis M F Judson Heart Rate 2023-05-29 08:12:00 60.00 /min Taya en F Judson Respiratory Rate 2023-05-29 08:12:00 18.00 /min Luis M F Judson BP Systolic 2021-08-26 13:24:00 144 mm[Hg] Step hen F Judson BP Diastolic 2021-08-26 13:24:00 83 mm[Hg] Phil phen F Judson Weight Measured 2021-08-26 13:24:00 224.20 pounds Luis M F Judson Height Measured 2021-08-26 13:24:00 67.00 inches Luis M F Judson Body Temperature 2021-08-26 13:24:00 97.60 degrees Luis M Roper Heart Rate 2021-08-26 13:24:00 76.00 /min Taya Roper Respiratory Rate 2021-08-26 13:24:00 Luis M Carroll Judson Procedures Procedure Date / Time Performed Performing Clinicia n Source RAPID STREP SCREEN FOR GROUP A 2023-10-03 13:12:00 Marlo Brown [facility] XR CHEST 2 VW 2023-10-03 13:00:37 Marlo Brown [facility] RAPID INFLUENZA A/B 2023-10-03 12:30:00 Marlo Brown [facility] COVID-19 (ID NOW RAPID TESTING) 2023-10-03 12:30:00 Marlo Brown [facility] CONSENT/REFUSAL FOR DIAGNOSIS AND TREATMENT 2023-10-03 12:14:25 Doctor Unassigned, [place] [facility] COMP. METABOLIC PANEL ([id number]) 2023-06-01 03:01:[address] [facility] CBC WITH DIFF 2023-06-01 03:01:00 [facility] N-TERMINAL PRO-BNP 2023-06-01 03:01:00 [facility] NOTICE OF PRIVACY PRACTICES 2023-06-01 02:33:56 Doctor Unassigned, [place] [facility] CONSENT/REFUSAL FOR DIAGNOSIS AND TREATMENT 2023-06-01 02:33:27 Doctor Unassigned, [place] [facility] CONSENT/REFUSAL FOR DIAGNOSIS AND TREATMENT 2023-01-26 01:35:40 Doctor Unassigned, [place] [facility] COVID-19 (ID NOW RAPID TESTING) 2021-05-26 02:08:00 Lydia Kaur [facility] XR CHEST 2 VW 2021-05-26 02:05:49 Lydia Kaur [facility] NOTICE OF PRIVACY PRACTICES 2021-05-26 01:37:54 Doctor Unassigned, [place] [facility] CONSENT/REFUSAL FOR DIAGNOSIS AND TREATMENT 2021-05-26 01:37:31 Doctor Unassigned, [place] [facility] Encounters Start Date/Time End Date/Time Encounter Type Admission Type Attending [facility] Care Department Encounter ID Source 2021-08-15 14:56:18 Emergency [facility] [id number] [facility] 2024-05-08 17:23:48 2024-05-08 17:23:48 Outpatient [facility] [id number] Luis M Roper 2024-05-08 00:00:00 2024-05-08 00:00:00 Outpatient Visit [facility] [id number] Luis M Roper 2024-04-10 17:42:43 2024-04-10 17:42:43 Outpatient [facility] [id number] Luis M Roper 2024-03-13 15:46:57 2024-03-13 15:46:57 Outpatient [facility] [id number] Luis M Roper 2024-03-13 00:00:00 2024-03-13 00:00:00 Outpatient Visit [facility] [id number] Luis M Roper 2023-11-29 08:07:41 2023-11-29 08:07:41 Outpatient [facility] [id number] Luis M Roper 2023-11-26 15:15:26 2023-11-26 15:15:26 Outpatient [facility] [id number] Luis M Roper 2023-10-24 15:51:50 2023-10-24 15:51:50 Outpatient [facility] [id number] Luis M Roper 2023-10-03 06:31:00 2023-10-03 07:54:00 Emergency X QUEENIE CHAVES [facility] ERT [id number] [facility] 2023-10-03 06:31:00 2023-10-03 07:54:00 Emergency Marlo Brown Donnell [facility] [id number] [id number] [id number] [facility] 2023-05-31 21:46:00 2023-05-31 23:58:00 Emergency X COLLINS FAIR [facility] ERT [id number] [facility] 2023-05-31 21:46:00 2023-05-31 23:58:00 Emergency Collins Fair [facility] [id number] [id number] [facility] 2023-05-29 08:01:40 2023-05-29 08:01:40 Outpatient [facility] [id number] Luis M Roper 2023-01-25 20:48:00 2023-01-25 22:28:00 Emergency X KEYSHA BARNES [facility] ERT [id number] [facility] 2023-01-25 20:48:00 2023-01-25 22:28:00 Emergency Keysha Barnes [facility] [id number] [id number] [id number] [facility] 2023-01-25 00:00:00 2023-01-25 00:00:00 Nurse Triage Leonila Long [facility] [id number] [id number] 4.2.7.2.686 [id number] [facility] 2021-05-25 20:47:00 2021-05-25 22:37:[address] [facility] [id number] [id number] [id number] [id number] [facility] 2021-05-25 00:00:00 2021-05-25 00:00:00 Orders Only Doctor Unassigned, [place] [facility] [id number] 350.1.13.10 [id number] [id number] [facility] 2020-05-15 00:00:00 2020-05-15 00:00:00 Patient Secure Msg Doctor Unassigned, [place] [facility] 1.2.114 350.1.13.10 4.2.7.2.686 [id number] [facility] 2020-05-14 08:05:18 2020-05-14 09:26:46 Laboratory Only Lab, [facility] 1.84.114 350.1.13.10 4.2.7.2.686 [id number] [facility] 2020-05-14 08:20:00 2020-05-14 08:20:00 Outpatient R [facility] [id number] [facility] 2020-04-14 00:00:00 2020-04-14 00:00:00 Telephone Martha Paula [facility] 1.84.114 350.1.13.10 [id number] [id number] [facility] 2020-04-13 17:27:34 2020-04-13 17:47:34 [facility] 1.84.114 [id number] [id number] [id number] [facility] 2020-04-13 17:40:00 2020-04-13 17:40:00 [facility] [id number] Results Test Description Test Time Test Comments Results Result Co mments Source Luis M Carroll JudsonCOMPREHENSIVE METABOLIC [id number] 00:00:00* Test Item Value Reference Range Interpretation Comme nts GLUCOSE (test code = 2217) 106 MG/DL BUN (test code = 2208) 17 MG/DL CREATININE (test code = 2214) 0.96 MG/DL eGFR (2020 CKD-EPI) (test co de = 14501) 95 ML/MIN/1.73 CALC BUN/CREAT (test code = 2235) 18 RATIO SODIUM (test code = 2231) 142 MEQ/L POTASSIUM (test code = 2228) 4.9 MEQ/L CHLORIDE (test code = 2215) 106 MEQ/L CARBON DIOXIDE (test code = 2206) 24 MEQ/L CALCIUM (test code = 2209) 9.4 MG/DL PROTEIN, TOTAL (test code = 2229) 7.0 G/DL ALBUMIN (test code = 2201) 4.4 G/DL CALC GLOBULIN (test code = 2240) 2.6 G/DL CALC A/G RATIO (test code = 2234) 1.7 RATIO BILIRUBIN, TOTAL (test code = 2207) 0.3 MG/DL ALKALINE PHOSPHATASE (test code = 2204) 72 U/L AST (test code = 2218) 14 U/L ALT (test code = 2219) 22 U/L Luis M RoperHEMOGLOBIN [id number] 00:00:00* Test Item Value Reference Range Interpretation Comme nts HEMOGLOBIN A1c (test code = 15515) 5.7 % Luis M RoperLIPID [id number] 00:00:00* Test Item Value Reference Range Interpretation Comme nts CHOLESTEROL (test code = 2210) 162 MG/DL TRIGLYCERIDES (test code = 2232) 76 MG/DL HDL CHOLESTEROL (test code = 2220) 49 MG/DL CALC LDL CHOL (test code = 2237) 96 MG/DL RISK RATIO LDL/HDL (test cod e = 2238) 1.96 RATIO Luis M RoperPSA, [id number] 00:00:00* Test Item Value Reference Range Interpretation Comme nts PSA, TOTAL (test code = 2606) 0.63 NG/ML Luis M RoperCOMPREHENSIVE METABOLIC [id number] 00:00:00* Test Item Value Reference Range Interpretation Comme nts GLUCOSE (test code = 2217) 106 MG/DL BUN (test code = 2208) 17 MG/DL CREATININE (test code = 2214) 0.96 MG/DL eGFR (2020 CKD-EPI) (test co de = 40745) 95 ML/MIN/1.73 CALC BUN/CREAT (test code = 2235) 18 RATIO SODIUM (test code = 223) 142 MEQ/L POTASSIUM (test code = 2228) 4.9 MEQ/L CHLORIDE (test code = 2215) 106 MEQ/L CARBON DIOXIDE (test code = 2206) 24 MEQ/L CALCIUM (test code = 2209) 9.4 MG/DL PROTEIN, TOTAL (test code = 222) 7.0 G/DL ALBUMIN (test code = 2201) 4.4 G/DL CALC GLOBULIN (test code = 2240) 2.6 G/DL CALC A/G RATIO (test code = 2234) 1.7 RATIO BILIRUBIN, TOTAL (test code = 2206) 0.3 MG/DL ALKALINE PHOSPHATASE (test code = 2203) 72 U/L AST (test code = 2217) 14 U/L ALT (test code = 2218) 22 U/L Luis M RoperHEMOGLOBIN [id number] 00:00:00* Test Item Value Reference Range Interpretation Comme manuel HEMOGLOBIN A1c (test code = 77726) 5.7 % Luis M RoperLIPID [id number] 00:00:00* Test Item Value Reference Range Interpretation Comme nts CHOLESTEROL (test code = 2210) 162 MG/DL TRIGLYCERIDES (test code = 2232) 76 MG/DL HDL CHOLESTEROL (test code = 0) 49 MG/DL CALC LDL CHOL (test code = 7) 96 MG/DL RISK RATIO LDL/HDL (test cod e = 2238) 1.96 RATIO Luis M RoperOccult Blood, Fecal, [id number] 00:00:00* Test Item Value Reference Range Interpretation Comme nts Occult Blood, Fecal, IA (kamlesh t code = 65782-8) Negative Luis M RoperOccult Blood, Fecal, [id number] 00:00:00* Test Item Value Reference Range Interpretation Comme nts Occult Blood, Fecal, IA (kamlesh t code = 88680-8) Negative Luis M RoperN-TERMINAL [id number] 04:07:03* Test Item Value Reference Range Interpretation Comme nts NT-proBNP (test code = 29180-6) 37 pg/mL <=125 Lab Interpretation (test cod e = 07151-6) Normal [facility] (92597)2023-06-01 03:58:42* Test Item Value Reference Range Interpretation Comme nts NA (test code = 9655588366) 141 mmol/L 135-145 K (test code = 5225984104) 3.9 mmol/L 3.5-5.0 CL (test code = 0177473744) 104 mmol/L 98-108 CO2 TOTAL (test code = 5524397875) 27 mmol/L 23-31 AGAP (test code = 1543427587) 10 2-16 BUN (test code = 9495411936) 17 mg/dL 7-23 GLUCOSE (test code = 5928364168) 125 mg/dL 70-110 H CREATININE (test code = 3681988446) 0.78 mg/dL 0.60-1.25 TOTAL BILI (test code = 2675479561) 0.4 mg/dL 0.1-1.1 CALCIUM (test code = 7234323539) 8.9 mg/dL 8.6-10.6 T PROTEIN (test code = 2102152478) 7.7 g/dL 6.3-8.2 ALBUMIN (test code = 2002089547) 4.1 g/dL 3.5-5.0 ALK PHOS (test code = 2095056029) 71 U/L 34-122 ALTv (test code = 1742-6) 34 U/L 5-50 AST(SGOT) (test code = 8169179977) 27 U/L 13-40 eGFR (test code = 8616960362) 104.9 mL/min/1.73m2 TRES (test code = TRES) Association of Glomerular Filtration Rate (GFR) and Staging of Kidney Disease* + --+ --+ ------+| GFR (mL/min/1.73 m2) ?| With Kidney Damage ?| ?Without Kidney Damage+ --------+ --------+ +| ?>90 ?| ?Stage one ?| ? Normal ?+ ---+ ---+ -------+| ?60-89 ?| ?Stage two ?| ? Decreased GFR ? + --+ --+ ------+| ?30-59 ?| ?Stage three ?| ? Stage three ? + --+ --+ ------+| ?15-29 ?| ?Stage four ? | ? Stage four ?+ ---+ ---+ -------+| ?<15 (or dialysis) ? ?| ?Stage five ? | ? Stage five ?+ ---+ ---+ -------+ *Each stage assumes the associated GFR level has been in effect for at least three months. ?Stages 1 to 5, with or without kidney disease, indicate chronic kidney disease. Notes: Determination of stages one and two (with eGFR >59mL/min/1.73 m2) requires estimation of kidney damage for at least three months as defined by structural or functional abnormalities of the kidney, manifested by either:Pathological abnormalities or Markers of kidney damage (including abnormalities in the composition of the blood or urine or abnormalities in imaging tests). Lab Interpretation (test code = 33692-4) Abnormal [facility] WITH [id number] 03:43:59* Test Item Value Reference Range Interpretation Comme nts WBC (test code = 6690-2) 11.80 See_Comment H [[email or web address]] The system which generated this result transmitted reference range: 4.20 - 10.70 10*3/?L. The reference range was not used to interpret this result as normal/abnormal. RBC (test code = 789-8) 4.79 See_Comment [[email or web address]] The system which generated this result transmitted reference range: 4.26 - 5.52 10*6/?L. The reference range was not used to interpret this result as normal/abnormal. HGB (test code = 718-7) 15.2 g/dL 12.2-16.4 HCT (test code = 4544-3) 44.7 % 38.4-49.3 MCV (test code = 787-2) 93.3 fL 81.7-95.6 MCH (test code = 785-6) 31.7 pg 26.1-32.7 MCHC (test code = 786-4) 34.0 g/dL 31.2-35.0 RDW-SD (test code = 68309-4) 42.2 fL 38.5-51.6 RDW-CV (test code = 788-0) 12.3 % 12.1-15.4 PLT (test code = 777-3) 290 See_Comment [Automated messa ge] The system which generated this result transmitted reference range: 150 - 328 10*3/?L. The reference range was not used to interpret this result as normal/abnormal. MPV (test code = 46553-1) 11.1 fL 9.8-13.0 NRBC/100 WBC (test code = 3825873844) 0.0 See_Comment [Automated me ssage] The system which generated this result transmitted reference range: 0.0 - 10.0 /100 WBCs. The reference range was not used to interpret this result as normal/abnormal. NRBC x10^3 (test code = 7303178271) See_Comment [Automated messa ge] The system which generated this result transmitted reference range: 10*3/?L. The reference range was not used to interpret this result as normal/abnormal. GRAN MAT (NEUT) % (test code = 770-8) 61.1 % IMM GRAN % (test code = 7670261027) 0.60 % LYMPH % (test code = 736-9) 22.8 % MONO % (test code = 5905-5) 10.6 % EOS % (test code = 713-8) 4.2 % BASO % (test code = 706-2) 0.7 % GRAN MAT x10^3(ANC) (test code = 1357499543) 7.21 10*3/uL 1.99-6.95 H IMM GRAN x10^3 (test code = 4844320223) 0.07 10*3/uL 0.00-0.06 H LYMPH x10^3 (test code = 731-0) 2.69 10*3/uL 1.09-3.23 MONO x10^3 (test code = 742-7) 1.25 10*3/uL 0.36-1.02 H EOS x10^3 (test code = 711-2) 0.50 10*3/uL 0.06-0.53 BASO x10^3 (test code = 704-7) 0.08 10*3/uL 0.01-0.09 Lab Interpretation (test code = 19059-9) Abnormal [facility] [id number] 00:00:00* Test Item Value Reference Range Interpretation Comme nts GLUCOSE (test code = 2217) 121 MG/DL BUN (test code = 2208) 19 MG/DL CREATININE (test code = 2214) 0.94 MG/DL eGFR AMER. (test cod e = ) 110 ML/MIN/1.73 eGFR NON- AMER. (test code = 47048) 95 ML/MIN/1.73 CALC BUN/CREAT (test code = 2235) 20 RATIO SODIUM (test code = 2231) 142 MEQ/L POTASSIUM (test code = 2228) 4.5 MEQ/L CHLORIDE (test code = 2215) 102 MEQ/L CARBON DIOXIDE (test code = 2206) 26 MEQ/L CALCIUM (test code = 2209) 10.2 MG/DL PROTEIN, TOTAL (test code = 222) 7.6 G/DL ALBUMIN (test code = 2201) 4.4 G/DL CALC GLOBULIN (test code = 2240) 3.2 G/DL CALC A/G RATIO (test code = 2234) 1.4 RATIO BILIRUBIN, TOTAL (test code = 2207) 0.2 MG/DL ALKALINE PHOSPHATASE (test code = 2204) 82 U/L AST (test code = 2218) 28 U/L ALT (test code = 2219) 59 U/L Luis M RoperHEMOGLOBIN [id number] 00:00:00* Test Item Value Reference Range Interpretation Comme nts HEMOGLOBIN A1c (test code = 39228) 5.7 % Luis M RoperCBC W/AUTO [id number] 00:00:00* Test Item Value Reference Range Interpretation Comme nts WBC (test code = 1001) 11.5 K/UL RBC (test code = 1002) 5.09 M/UL HEMOGLOBIN (test code = 1003) 15.9 G/DL HEMATOCRIT (test code = 1004) 46.0 % MCV (test code = 1005) 90.4 fL MCH (test code = 1006) 31.2 PG MCHC (test code = 1007) 34.6 G/DL RDW (test code = 1038) 11.9 % NEUTROPHILS (test code = 1008) 67.8 % LYMPHOCYTES (test code = 1010) 21.9 % MONOCYTES (test code = 1011) 8.9 % EOSINOPHILS (test code = 1012) 0.5 % BASOPHILS (test code = 1013) 0.4 % IMMATURE GRANULOCYTES (test code = 1036) 0.5 % NUCLEATED RBCS (test code = 1065) 0.0 /100WBC'S PLATELET COUNT (test code = 1015) 353 K/UL ABSOLUTE NEUTROPHILS (test c ode = 1066) 7.77 K/UL ABSOLUTE LYMPHOCYTES (test c ode = 1067) 2.51 K/UL ABSOLUTE MONOCYTES (test cod e = 1068) 1.02 K/UL ABSOLUTE EOSINOPHILS (test c ode = 1040) 0.06 K/UL ABSOLUTE BASOPHILS (test cod e = 1069) 0.05 K/UL ABS IMMATURE GRANULOCYTES (t est code = 1020) 0.06 K/UL ABS NUCLEATED RBCS (test cod e = 86911) 0.00 K/UL Luis M [id number] 00:00:00* Test Item Value Reference Range Interpretation Comme nts TSH, THIRD GENERATION (test code = 2821) 0.900 UIU/ML Luis M RoperLIPID [id number] 00:00:00* Test Item Value Reference Range Interpretation Comme nts CHOLESTEROL (test code = 2210) 206 MG/DL TRIGLYCERIDES (test code = 2232) 286 MG/DL HDL CHOLESTEROL (test code = 2220) 52 MG/DL CALC LDL CHOL (test code = 2237) 113 MG/DL RISK RATIO LDL/HDL (test cod e = 2238) 2.17 RATIO Luis M RoperCOMPREHENSIVE METABOLIC [id number] 00:00:00* Test Item Value Reference Range Interpretation Comme nts GLUCOSE (test code = 2217) 121 MG/DL BUN (test code = 2208) 19 MG/DL CREATININE (test code = 2214) 0.94 MG/DL eGFR AMER. (test cod e = 25748) 110 ML/MIN/1.73 eGFR NON- AMER. (test code = 88794) 95 ML/MIN/1.73 CALC BUN/CREAT (test code = 2235) 20 RATIO SODIUM (test code = 2231) 142 MEQ/L POTASSIUM (test code = 2228) 4.5 MEQ/L CHLORIDE (test code = 2215) 102 MEQ/L CARBON DIOXIDE (test code = 2206) 26 MEQ/L CALCIUM (test code = 2209) 10.2 MG/DL PROTEIN, TOTAL (test code = 2229) 7.6 G/DL ALBUMIN (test code = 2201) 4.4 G/DL CALC GLOBULIN (test code = 2240) 3.2 G/DL CALC A/G RATIO (test code = 2234) 1.4 RATIO BILIRUBIN, TOTAL (test code = 2207) 0.2 MG/DL ALKALINE PHOSPHATASE (test code = 2204) 82 U/L AST (test code = 2218) 28 U/L ALT (test code = 2219) 59 U/L Luis M RoperHEMOGLOBIN [id number] 00:00:00* Test Item Value Reference Range Interpretation Comme nts HEMOGLOBIN A1c (test code = 08835) 5.7 % Luis M RoperCBC W/AUTO [id number] 00:00:00* Test Item Value Reference Range Interpretation Comme nts WBC (test code = 1001) 11.5 K/UL RBC (test code = 1002) 5.09 M/UL HEMOGLOBIN (test code = 1003) 15.9 G/DL HEMATOCRIT (test code = 1004) 46.0 % MCV (test code = 1005) 90.4 fL MCH (test code = 1006) 31.2 PG MCHC (test code = 1007) 34.6 G/DL RDW (test code = 1038) 11.9 % NEUTROPHILS (test code = 1008) 67.8 % LYMPHOCYTES (test code = 1010) 21.9 % MONOCYTES (test code = 1011) 8.9 % EOSINOPHILS (test code = 1012) 0.5 % BASOPHILS (test code = 1013) 0.4 % IMMATURE GRANULOCYTES (test code = 1036) 0.5 % NUCLEATED RBCS (test code = 1065) 0.0 /100WBC'S PLATELET COUNT (test code = 1015) 353 K/UL ABSOLUTE NEUTROPHILS (test c ode = 1066) 7.77 K/UL ABSOLUTE LYMPHOCYTES (test c ode = 1067) 2.51 K/UL ABSOLUTE MONOCYTES (test cod e = 1068) 1.02 K/UL ABSOLUTE EOSINOPHILS (test c ode = 1040) 0.06 K/UL ABSOLUTE BASOPHILS (test cod e = 1069) 0.05 K/UL ABS IMMATURE GRANULOCYTES (t est code = 1020) 0.06 K/UL ABS NUCLEATED RBCS (test cod e = 85240) 0.00 K/UL Luis M [id number] 00:00:00* Test Item Value Reference Range Interpretation Comme nts TSH, THIRD GENERATION (test code = 2821) 0.900 UIU/ML Luis M RoperLIPID [id number] 00:00:00* Test Item Value Reference Range Interpretation Comme nts CHOLESTEROL (test code = 2210) 206 MG/DL TRIGLYCERIDES (test code = 2232) 286 MG/DL HDL CHOLESTEROL (test code = 2220) 52 MG/DL CALC LDL CHOL (test code = 2237) 113 MG/DL RISK RATIO LDL/HDL (test cod e = 2238) 2.17 RATIO Luis M RoperCOVID-19 (ID NOW RAPID TESTING)2021-05-26 02:47:53* Test Item Value Reference Range Interpretation Comme nts SARS-CoV-2 Rapid ID NOW (test code = 71010-2) Not Detected Not Detected TRES (test code = TRES) ID NOW COVID-19 As say is an isothermal nucleic acid amplification test intended for the qualitative detection of nucleic acid from SARS-CoV-2 viral RNA in nasopharyngeal ([employer]) specimens. It is used under Emergency Use Authorization (EUA) by FDA. The limit of detection (LOD) of the assay is 125 Genome Equivalents/mL. A positive result is indicative of the presence of SARS-CoV-2 RNA. ?Clinical correlation with patient history and other diagnostic information is necessary to determine patient infection status. A negative (Not Detected) result does not preclude SARS-CoV-2 infection. In patients with clinical symptoms and other tests that are consistent with SARS-CoV-2 infection, negative results should be treated as presumptive negative and a new specimen should be tested with alternative PCR molecular test. Invalid: Please collect a new specimen for repeat patient testing if clinically indicated. Lab Interpretation (test code = 99108-0) Normal [facility] Notes Date/Time Note Provider Source Luis M Roper [facility]2024-05-30 00:00:00 Plan Activity GET OUTSIDE AND WALK- STAY A CTIVE Diet AND EXERCISE WORK TOGETHER - WALK, SHOP, GO TO THE PARK, GET OUT OF THE HOUSE EVERYDAY 2021-08-26 BALANCED DIET WITH MEAT AND FRUITS AND VEGETABLES Discussed need to monitor diet. Recommend ADA diet Decrease high carb foods, sugary drinks, fatty foods, caffeine. Increase low sugar fruits, vegetables, lean meats, water intake 2021-08-26 Limit fat intake to no more than 20% to 35% of your total calorie intake. For a person following a 1,800-calorie diet, this means eating no more than 40 to 70 grams of fat each day. Choose complex carbohydrates, such as whole grains, vegetables, and fruits. About 45% to 65% of your total calorie intake should come from carbohydrate. For someone following a 1,800-calorie diet, this means eating about 200 to 300 grams of carbohydrate each day. Choose low-fat protein sources, such as fish, poultry, and legumes (for example, adams beans, lentils, and split peas). About 10% to 35% of your total calorie intake should come from protein. For someone following a 1,800-calorie diet, this means eating about 45 to 160 grams of protein each day. Get enough fiber each day. Men should aim for 38 grams a day, and women should aim for 25 grams a day. WE DISCOURAGE DRINKING AT ALL 2023-05-29 CEFDINIR 1 TAB BID 10 DAYS MUCINEX DM 1 TAB BID WITH LOTS OF FLUID F/U 1 WEEK FOR POST BRONCHITIS COUGH OR CXR IF NOT BETTER OR AN INHALER TO GET RID OF LEFT OVER COUGH 2023-05-29 Meds: see today's med list s take OTC Acetaminophen and otc Certirazine Recommendations : do not put Q-tiips in ears and DO put finger on tragus to drain eustachian tube to take the pressure off 2023-05-29 Patient clinically well and stable - FLU test NEGATIVE Most common cause is viral thus no abx are warranted, Patient is to treat symptoms including OTC Cough and Cold, if with htn use Corcidin, if allergy treat with Zyrtec Rest. Push fluids. Fever/pain control. Use prescribed medications as instructed. Return for worsening symptoms like rising fever, severe throat pain or ear pain. 2023-10-24 You can take charge of your health by staying current on well-care visits, screenings, and immunizations. Our goal is to help you live a healthier and happier life through preventive care. Check: CMP LIPIDs, hgA1C Recommend a Tetanus-diphtheria every 10 years and a Flu vaccine every year unless it is contraindicated. HIV test one time during adulthood (through age 64) Take a daily multivitamin Occasionally check your blood pressure and notify the clinic if your blood pressure is over 140/80 or lower than 80/60. Exercise and ensure healthy life style modifications. 2023-11-26 with decrease libido Discussed the affects of life stressors on worsening the conditions. Discussed increasing exercise, relaxation techniques decrease ETOH Consider BH Therapy Discussed treatment options risk and benefits. Check PSA Testosterone (before 11:00am) If low Testosterone will need to have 3 documented low to initiate Exogenous Testosterone treatment based on [facility] policy 2023-11-26 Discussed need for weight lo ss, increase exercise and healthier diet. 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 2023-11-26 Recommend weight loss, incre ase exercise, increase vegetables, lean meats, low sugar fruits. 2024-03-13 Resolved symptoms RTW completed for work [id number] fluid intake Wash hands frequently Avoid greasy, spicy, fried foods, avoid dairy products Begin eating bland foods RTO if symptoms return 2024-03-13 Current Blood Pressure marke d elevated Patient is adamant about not taking bp medications . He is well aware of acute and chronic risk with uncontrolled BP Discussed with the patient risk of elevated bp for acute and care home complications. Noted 3 elevated bps greater than 140/80 on 3 different occasions indicated a need to start medications with lifestyle modifications. Recommend keeping a log. Given copy of log Goal is less [id number] Recommend low salt diet, healthier choices and exercise RTO 2024-03-13 Luis M GlenOmid [facility]2023-08-17 23:57:17 Pt given printed and verbal discharge instructions regarding Acute bronchitis, encouraged hydration. Prescriptions provided Pt verbalized understanding of instructions, pt awake alert oriented, resp reg unlabored, skin w/d,color appropriate for race, moves all ext well,pt encouraged to follow up with pcp. Advised to seek medical attention for new/prolonged/worsening of symptoms. No adverse reaction to meds given in ER noted upon discharge. PIV d'cd, dressing to site, catheter in tact. Awake, alert oriented, resp reg unlabored, skin w/d, pt leaving amb with steady gait, in no apparent distress. Brad Cifuentes [facility] [id number] 22:57:41 Report given to JACINDA Cifuentes Rupa Bergeron [facility] HospitalCdpwmi0061-03-12 21:40:28 Pt states he has been having cough for the last couple of weeks, pt states that on Sunday he was seen at the [facility] and given Cefdiner 300 mg , pt states that he was taking Mucinex DM 30-1200 mg to since last Sunday and no relief. Pt states he is also have left rib pain that started yesterday after coughing. Pt has audible wheezing noted in triage. Pt states mom was released on Sunday after being in the hospital for 1 weeks due to COVID, pt states that he had neg home test for COVID Cecy Ocasio [facility]"
== END 2024-06-01 15:20 | disposition home or self-care (01) ==
LOC: ER 11:38
DX: J06.9 Acute upper respiratory infection, unspecified (principal); Z11.52 Encounter for screening for COVID-19
CPT/HCPCS: 36415; 71046; 87804; 87811; 99284

== ENCOUNTER 2024-09-05 17:54 | Emergency (ER) | payer SELFPAY ==
--- OUTSIDE RECORDS SUMMARY | 2024-09-05 17:58 | XMS REPORT | Continuity of Care Document ---
Author Name Unknown Address [address] [facility] [address] [place] [address] [facility] thconnect Address [address] [facility] [address] [place] [address] Care Team Providers Care Finish Mixer Name Role Phone PCP, PATIENT DOES NOT HAVE A Primary Care Physic donavan Unavailable QUEENIE CHAVES Attending Clinician Unavailable Marlo Brown MD Attending Clinician [phone] Queenie Chaves MD Attending Clinician [phone] COLLINS FAIR Attending Clinician Unavailable Collins Fair DO Attending Clinician [phone] KEYSHA BARNES Attending Clinician Unavailable Keysha Marquez Attending Clinician [phone] Leonila Long RN Attending Clinician Unavailable Lydia Zayas Attending Clinician + [phone] Doctor Unassigned, [place] Attending Clinician U ta Rodriguez, [facility] Pob I Attending Clinician UnavailEsmer Nielsen Attending Clinician [phone] Paula Thomas RN Attending Clinician Unavailable ESMER FRANZ Attending Clinician Unavailable MARLO BROWN Admitting Clinician Unavailable COLLINS FAIR Admitting Clinician Unavailable Payers Payer Name Policy Type Policy Number Effective Date Expirati on Date Source [employer] [id number] 2022 00:00:00 Problems Condition Name Condition Details Condition Category Status Onset Date Resolution Date Last Treatment Date Treating Clinician Comments Source No known active problems No known active problems Disease [facility] Allergies, Adverse Reactions, Alerts Allergy Name Allergy Type Status Severity Reaction(s) Onset Date Inactive Date Treating Clinician Comments Source NO KNOWN ALLERGIE S Drug Class Active [facility] Social History Social Habit Start Date Stop Date Quantity Comments Source Gender identity [facility] Sexual orientation U [facility] Exposure to SARS-CoV-2 (event) 2023-01-15 00:00:00 2023-01-25 20:45:00 Not sure [facility] Sex Assigned At 1970 00:00:00 1970 00:00:00 [facility] Smoking Status Start Date Stop Date Source Tobacco smoking consumption unknown [facility] Medications Ordered Medication Name Filled Medication Name Start Date Stop Date Current Medication? Ordering Clinician Indication Dosage Frequency Signature (SIG) Comments Components Source ondansetron 4 mg disintegrat ing tablet 2023-10 00:00: 00 Yes 1mg Luis M Vitalfed DM 2 mg-30 mg-10 mg/5 mL oral syrup 2023-10 00:00: 00 Yes 10mg/5 mL Luis M Roper telmisartan 40 mg tablet 2023-10 00:00: 00 Yes 1mg Luis M Roper Flonase Allergy Relief 50 mcg/actuati on nasal spray,suspe nsion 2023-10 00:00: 00 Yes 2mcg/ac tuation Luis M Roper cetirizine 10 mg tablet 2023-10 00:00: 00 Yes 1mg Luis M Roper Bromfed DM 2 mg-30 mg-10 mg/5 mL oral syrup 2023-10-14 00:00: 00 Yes 10mg/5 mL Luis M Roper telmisartan 40 mg tablet 04-10 00:00: 00 Yes 1mg Luis M Roper TAKE 10 ML BY MOUTH EVERY 4 TO 6 HOURS NEEDED FOR COUGH. 10-24 00:00: 12-03 00:00 :00 No [id number] Luis M Roper dexamethaso ne sod phos PF injection 8 mg 2022-10 13:00: 00 10-03 12:53 :00 No 8mg 8 mg, Oral, ONCE, 1 dose, On Sun10/03/23 at 0700, 1 mL [facility] methylPREDN ISolone 4 mg tablets 2022-10 00:00: 00 Yes [id number] Take by mouth SEE-INSTRU CTIONS. follow package directions [facility] levoFLOXaci n 500 mg tablet 2022-10 00:00: 00 Yes [id number] 500mg Take 1 tablet by mouth every 24 (twenty-fo ur) hours. [facility] dextrometho rphan-guaif enesin 10-100 mg/5 mL solution 2022-10 00:00: 00 Yes [id number] 10mL Take 10 mL by mouth every 6 (six) hours as needed for Cough. [facility] albuterol 90 mcg/actuati on inhaler 2022-10 00:00: 00 Yes [id number] 2{puff} Inhale 2 Puffs every 4 (four) hours as needed for Wheezing or Shortness of Breath. [facility] LEVOFLOXACI N 500MG 2022-10 00:00: 00 12-03 [...] Sun06/01/23 at 0800, Until Discontinu ed, Routine [facility] methylpredn isolone sod succ (SOLU-MEDRO L) injection 125 mg 06-01 05:00: 00 Yes 125mg 125 mg, Intravenou s, Q6H, First dose on Sun06/01/23 at 0000, Until Discontinu ed, Routine [facility] albuterol 90 mcg/actuati on inhaler 05-31 00:00: 00 Yes [id number] 2{puff} Inhale 2 Puffs every 4 (four) hours as needed for Wheezing or Shortness of Breath. [facility] TAKE 1 TABLET BY MOUTH TWICE A DAY 05-31 00:00: 00 12-03 00:00 :00 Cori Asencio Glen Judson TAKE 1 TABLET EVERY 12 HOURS DAILY. 05-29 00:00: 00 12-03 00:00 :00 No [id number] Luis M F Judson TAKE 1 CAPSULE BY MOUTH TWICE DAILY UNTIL GONE 05-29 00:00: 00 12-03 00:00 :00 Cori Roper AMOXICILLIN 500MG 03-16 00:00: 00 12-03 00:00 :00 No Luis M Glen Judson HYDROcodone -acetaminop hen (NORCO 5) 5-325 mg tablet 1 tablet 01-26 02:47: 00 01-26 02:55 :00 No 1{tbl} 1 tablet, Oral, ONCE, 1 dose, On Sun01/25/23 at 2200, DHARMESH [facility] amoxicillin -clavulanat e (AUGMENTIN) 875-125 mg per tablet 1 tablet 01-26 02:47: 00 01-26 02:55 :00 No 1{tbl} 1 tablet, Oral, ONCE, 1 dose, On Sun01/25/23 at 2200, DHARMESH
Re ason for Anti-Infec tive: Documented Infection< br>Documen abdullahi Infection Site: HEENT
D uration of Therapy: Other (see Comments) [facility] PLEASE SEE ATTACHED FOR DETAILED DIRECTIONS 01-26 00:00: 00 12-03 00:00 :00 No Luis M Roper AMOX/K CLAV [id number] 4-14 00:00: 00 12-03 00:00 :00 No Luis M Roper ibuprofen 600 mg tablet 01-25 00:00: 00 Yes [id number] 600mg Take 1 tablet by mouth every 8 (eight) hours as needed for Pain (scale 4-6). [facility] TAKE 1 TABLET BY MOUTH IN THE MORNING AND IN THE EVENING FOR 10 DAYS 01-25 00:00: 00 12-03 00:00 :00 No Luis M Roper TAKE 1 TABLET BY MOUTH EVERY 8 HOURS NEEDED FOR PAIN (SCALE 4-6). 01-25 00:00: 00 12-03 00:00 :00 No Luis M Roper amoxicillin -clavulanat e 875-125 mg per tablet 01-25 00:00: 00 02-05 04:59 :00 No [id number] 1{tbl} Take 1 tablet by mouth in the morning and 1 tablet in the evening. Do all this for 10 days. [facility] traMADoL 50 mg tablet 01-25 00:00: 00 02-02 04:59 :00 No [id number] 50mg Take 1 tablet by mouth every 8 (eight) hours as needed for Pain (scale 4-6) for up to 7 days. Indication s: acute pain [facility] No known medications No Un di[facility] Vital Signs Vital Name Observation Time Observation Value Comments S ource Systolic blood pressure 2023-10-03 12:21:00 144 mm[Hg] [facility] Diastolic blood pressure 2023-10-03 12:21:00 93 mm[Hg] [facility] Heart rate 2023-10-03 12:21:00 62 /min [facility] Body temperature 2023-10-03 12:21:00 36.72 Pennie [facility] Respiratory rate 2023-10-03 12:21:00 18 /min [facility] Body height 2023-10-03 12:21:00 165.1 cm [facility] Body weight 2023-10-03 12:21:00 103.964 kg [facility] BMI 2023-10-03 12:21:00 38.14 kg/m2 [facility] Oxygen saturation in Arterial blood by Pulse oximetry 2023-10-03 12:21:00 97 /min [facility] Systolic blood pressure 2023-06-01 04:00:00 147 mm[Hg] [facility] Diastolic blood pressure 2023-06-01 04:00:00 89 mm[Hg] [facility] Heart rate 2023-06-01 04:00:00 74 /min Unive [facility] Respiratory rate 2023-06-01 04:00:00 15 /min [facility] Oxygen saturation in Arterial blood by Pulse oximetry 2023-06-01 04:00:00 96 /min [facility] Body temperature 2023-06-01 02:39:00 36.78 Pennie [facility] Body height 2023-06-01 02:39:00 165.1 cm [facility] Body weight 2023-06-01 02:39:00 102.967 kg [facility] BMI 2023-06-01 02:39:00 37.77 kg/m2 [facility] Systolic blood pressure 2023-01-26 01:37:00 161 mm[Hg] [facility] Diastolic blood pressure 2023-01-26 01:37:00 83 mm[Hg] [facility] Heart rate 2023-01-26 01:37:00 63 /min Unive [facility] Body temperature 2023-01-26 01:37:00 36.72 Pennie [facility] Respiratory rate 2023-01-26 01:37:00 17 /min [facility] Body height 2023-01-26 01:37:00 165.1 cm [facility] Body weight 2023-01-26 01:37:00 104.327 kg [facility] BMI 2023-01-26 01:37:00 38.27 kg/m2 [facility] Oxygen saturation in Arterial blood by Pulse oximetry 2023-01-26 01:37:00 97 /min [facility] Systolic blood pressure 2021-05-26 01:44:00 143 mm[Hg] [place] [facility] Diastolic blood pressure 2021-05-26 01:44:00 91 mm[Hg] [place] [facility] Heart rate 2021-05-26 01:44:00 82 /min [facility] 2021-05-26 01:44:00 37.5 Pennie [facility] Respiratory rate 2021-05-26 01:44:00 22 /min [facility] Body weight 2021-05-26 01:44:00 95.255 kg [facility] Oxygen saturation in Arterial blood by Pulse oximetry 2021-05-26 01:44:00 98 /min [facility] BP Systolic 2024-08-27 13:12:00 129 mm[Hg] Step hen F Judson BP Diastolic 2024-08-27 13:12:00 87 mm[Hg] Phil phen F Judson Weight Measured 2024-08-27 13:12:00 219.00 pounds Luis M F Judson Height Measured 2024-08-27 13:12:00 65.50 inches Luis M F Judson Body Temperature 2024-08-27 13:12:00 100.20 degrees Luis M F Judson Heart Rate 2024-08-27 13:12:00 93.00 /min Taya en F Judson Respiratory Rate 2024-08-27 13:12:00 20.00 /min Luis M F Judson BP Systolic 2024-08-05 13:52:00 152 mm[Hg] Step hen F Judson BP Diastolic 2024-08-05 13:52:00 82 mm[Hg] Phil phen F Judson Weight Measured 2024-08-05 13:52:00 219.00 pounds Luis M F Judson Height Measured 2024-08-05 13:52:00 65.50 inches Luis M F Judson Body Temperature 2024-08-05 13:52:00 98.40 degrees Luis M F Judson Heart Rate 2024-08-05 13:52:00 72.00 /min Taya en F Judson Respiratory Rate 2024-08-05 13:52:00 18.00 /min Luis M F Judson BP Systolic 2024-07-28 11:21:00 154 mm[Hg] Step hen F Judson BP Diastolic 2024-07-28 11:21:00 84 mm[Hg] Phil phen F Judson Weight Measured 2024-07-28 11:21:00 158.80 pounds Luis M F Judson Height Measured 2024-07-28 11:21:00 65.50 inches Luis M F Judson Body Temperature 2024-07-28 11:21:00 97.90 degrees Luis M F Judson Heart Rate 2024-07-28 11:21:00 56.00 /min Taya en F Judson Respiratory Rate 2024-07-28 11:21:00 18.00 /min Luis M F Judson Weight Measured 2024-06-05 15:39:00 217.40 pounds Luis M F Judson Height Measured 2024-06-05 15:39:00 65.50 inches Luis M F Judson Body Temperature 2024-06-05 15:39:00 98.10 degrees Luis M F Judson Heart Rate 2024-06-05 15:39:00 59.00 /min Taya en F Judson Respiratory Rate 2024-06-05 15:39:00 18.00 /min Luis M F Judson BP Systolic 2024-06-05 15:39:00 146 mm[Hg] Step hen F Judson BP Diastolic 2024-06-05 15:39:00 76 mm[Hg] Phil phen F Judson BP Systolic 2024-05-08 17:23:00 145 mm[Hg] Step [...] Respiratory Rate 2024-04-10 17:46:00 Luis M F Judson Weight Measured 2024-03-13 15:55:00 219.80 pounds Luis [...] en F Judson Respiratory Rate 2023-11-26 15:19:00 Lusi M F Judson BP Systolic 2023-10-24 15:54:00 150 mm[Hg] Step hen F Judson BP Diastolic 2023-10-24 15:54:00 98 mm[Hg] Phil phen F Judson Weight Measured 2023-10-24 15:54:00 227.40 pounds Luis M F Judson Height Measured 2023-10-24 15:54:00 65.50 inches Luis M F Judson Body Temperature 2023-10-24 15:54:00 98.30 degrees Luis M Roper Heart Rate 2023-10-24 15:54:00 63.00 /min Taya en Glen Roper Respiratory Rate 2023-10-24 15:54:00 Luis Mdomonique Roper BP Systolic 2023-05-29 08:12:00 140 mm[Hg] Step hen F Judson BP Diastolic 2023-05-29 08:12:00 90 mm[Hg] Phil phen Glen Roper Weight Measured 2023-05-29 08:12:00 227.00 pounds Luis M Roper Height Measured 2023-05-29 08:12:00 65.50 inches Luis M Roper Body Temperature 2023-05-29 08:12:00 97.40 degrees Luis M Roper Heart Rate 2023-05-29 08:12:00 60.00 /min Taya en Glen Roper Respiratory Rate 2023-05-29 08:12:00 18.00 /min Luis M Roper BP Systolic 2021-08-26 13:24:00 144 mm[Hg] Step hen F Judson BP Diastolic 2021-08-26 13:24:00 83 mm[Hg] Phil phen lGen Roper Weight Measured 2021-08-26 13:24:00 224.20 pounds Luis M Roper Height Measured 2021-08-26 13:24:00 67.00 inches Luis M Roper Body Temperature 2021-08-26 13:24:00 97.60 degrees Luis M Roper Heart Rate 2021-08-26 13:24:00 76.00 /min Taya en Glen Roper Respiratory Rate 2021-08-26 13:24:00 Luis M Roper Procedures Procedure Date / Time Performed Performing Clinicia n Source RAPID STREP SCREEN FOR GROUP A 2023-10-03 13:12:00 Marlo Brown [facility] XR CHEST 2 VW 2023-10-03 13:00:37 Marlo Brown [facility] RAPID INFLUENZA A/B 2023-10-03 12:30:00 Marlo Brown [facility] COVID-19 (ID NOW RAPID TESTING) 2023-10-03 12:30:00 Marlo Brown [facility] CONSENT/REFUSAL FOR DIAGNOSIS AND TREATMENT 2023-10-03 12:14:25 Doctor Unassigned, [place] [facility] COMP. METABOLIC PANEL ([id number]) 2023-06-01 03:01:00 Singer [facility] CBC WITH DIFF 2023-06-01 03:01:00 Collins Fair [facility] N-TERMINAL PRO-BNP 2023-06-01 03:01:00 Singer Collins [facility] NOTICE OF PRIVACY PRACTICES 2023-06-01 02:33:56 Doctor Unassigned, [place] [facility] CONSENT/REFUSAL FOR DIAGNOSIS AND TREATMENT 2023-06-01 02:33:27 Doctor Unassigned, [place] [facility] CONSENT/REFUSAL FOR DIAGNOSIS AND TREATMENT 2023-01-26 01:35:40 Doctor Unassigned, [place] [facility] COVID-19 (ID NOW RAPID TESTING) 2021-05-26 02:08:00 Lydia Kaur [facility] XR CHEST 2 VW 2021-05-26 02:05:49 Lydia Kaur [facility] NOTICE OF PRIVACY PRACTICES 2021-05-26 01:37:54 Doctor Unassigned, [place] [facility] CONSENT/REFUSAL FOR DIAGNOSIS AND TREATMENT 2021-05-26 01:37:31 Doctor Unassigned, [place] [facility] Encounters Start Date/Time End Date/Time Encounter Type Admission Type Attending [facility] Care Facility Care Department Encounter ID Source 2021-08-15 14:56:18 Emergency [facility] [id number] [facility] 2024-08-27 13:07:48 2024-08-27 13:07:48 Outpatient SFA [facility] [id number] Luis M Carroll Judson 2024-08-27 00:00:00 2024-08-27 00:00:00 Outpatient Visit [facility] [id number] Luis M Carroll Judson 2024-08-05 13:47:33 2024-08-05 13:47:33 Outpatient SFA [facility] [id number] Luis M Carroll Judson 2024-08-05 00:00:00 2024-08-05 00:00:00 Outpatient Visit [facility] [id number] Luis M Roper 2024-07-28 11:16:13 2024-07-28 11:16:13 Outpatient SFA [facility] [id number] Luis M Roper 2024-07-28 00:00:00 2024-07-28 00:00:00 Outpatient Visit [facility] [id number] Luis M Roper 2024-06-05 00:00:00 2024-06-05 00:00:00 Outpatient Visit [facility] [id number] Luis M Roper 2024-05-08 17:23:48 2024-05-08 17:23:48 Outpatient SFA [facility]FA [id number] Luis M Roper 2024-05-08 00:00:00 2024-05-08 00:00:00 Outpatient Visit [facility] [id number] Luis M Roper 2024-04-10 17:42:43 2024-04-10 17:42:43 Outpatient SFA [facility] [id number] Luis M Roper 2024-03-13 15:46:57 2024-03-13 15:46:57 Outpatient SFA SFA [id number] Luis M Roper 2024-03-13 00:00:00 2024-03-13 00:00:00 Outpatient Visit SFA [id number] Luis M Roper 2023-11-29 08:07:41 2023-11-29 08:07:41 Outpatient SFA [facility]FA [id number] Luis M Roper 2023-11-26 15:15:26 2023-11-26 15:15:26 Outpatient SFA SFA [id number] Luis M Roper 2023-10-24 15:51:50 2023-10-24 15:51:50 Outpatient [facility] [id number] Luis M Roper 2023-10-03 06:31:00 2023-10-03 07:54:00 Emergency X BRAYAN QUEENIE [facility] ERT [id number] [facility] 2023-10-03 06:31:00 2023-10-03 07:54:00 Emergency VasutMarlo Donnell [facility] [id number] [facility] 2023-05-31 21:46:00 2023-05-31 23:58:00 Emergency X COLLINS [facility] ERT [id number] [facility] 2023-05-31 21:46:00 2023-05-31 23:58:00 Emergency FairCollins [facility] [id number] 350.1.13.10 4.2.7.2.686 [id number] [facility] 2023-05-29 08:01:40 2023-05-29 08:01:40 Outpatient [facility] [id number] Luis M Roper 2023-01-25 20:48:00 2023-01-25 22:28:00 Emergency X KEYSHA BARNES [facility] ERT [id number] [facility] 2023-01-25 20:48:00 2023-01-25 22:28:00 Emergency Keysha Barnes [facility] [id number] 350.1.13.10 4.2.7.2.686 [id number] [facility] 2023-01-25 00:00:00 2023-01-25 00:00:00 Nurse Triage Ethan [facility] [id number] [id number] [id number] [id number] [facility] 2021-05-25 20:47:00 2021-05-25 22:37:00 Emergency Lydia Kaur [facility] [id number] [id number] 4.2.7.2.686 [id number] [facility] 2021-05-25 00:00:00 2021-05-25 00:00:00 Orders Only Doctor Unassigned, [place] [facility] [id number] [id number] 4.2.7.2.686 [id number] [facility] 2020-05-15 00:00:00 2020-05-15 00:00:00 Patient Secure Msg Doctor Unassigned, [place] [facility] 1.20.114 350.1.13.10 4.2.7.2.686 [id number] [facility] 2020-05-14 08:05:18 2020-05-14 09:26:46 Laboratory Only [facility] [address] 1.114 350.1.13.10 4.2.7.2.686 [id number] [facility] 2020-05-14 08:20:00 2020-05-14 08:20:00 Outpatient R [facility] [id number] [facility] 2020-04-14 00:00:00 2020-04-14 00:00:00 Telephone Paula Thomas [facility] 1..114 350.1.13.10 4.2.7.2.686 [id number] [facility] 2020-04-13 17:27:34 2020-04-13 17:47:34 Laboratory Only Lab, Adc Fam b [facility] [address] ..114 350.1.13.10 4.2.7.2.686 [id number] [facility] 2020-04-13 17:40:00 2020-04-13 17:40:00 Outpatient ESMER PERALES [facility] [id number] [facility] Results Test Description Test Time Test Comments Results Result Co mments Source Luis M RoperLIPID [id number] 00:00:00* Test Item Value Reference Range Interpretation Comme nts CHOLESTEROL (test code = 2210) 166 MG/DL TRIGLYCERIDES (test code = 2232) 235 MG/DL HDL CHOLESTEROL (test code = 2220) 45 MG/DL CALC LDL CHOL (test code = 2237) 88 MG/DL RISK RATIO LDL/HDL (test cod e = 2238) 1.96 RATIO Luis M RoperCOMPREHENSIVE METABOLIC [id number] 00:00:00* Test Item Value Reference Range Interpretation Comme nts GLUCOSE (test code = 2217) 108 MG/DL BUN (test code = 2208) 22 MG/DL CREATININE (test code = 2214) 1.18 MG/DL eGFR (2020 CKD-EPI) (test co de = 29242) 74 ML/MIN/1.73 CALC BUN/CREAT (test code = 2235) 19 RATIO SODIUM (test code = 2231) 141 MEQ/L POTASSIUM (test code = 2228) 4.1 MEQ/L CHLORIDE (test code = 2215) 103 MEQ/L CARBON DIOXIDE (test code = 2206) 24 MEQ/L CALCIUM (test code = 2209) 9.6 MG/DL PROTEIN, TOTAL (test code = 2229) 7.2 G/DL ALBUMIN (test code = 2201) 4.5 G/DL CALC GLOBULIN (test code = 2240) 2.7 G/DL CALC A/G RATIO (test code = 2234) 1.7 RATIO BILIRUBIN, TOTAL (test code = 2207) 0.2 MG/DL ALKALINE PHOSPHATASE (test code = 2204) 73 U/L AST (test code = 2218) 23 U/L ALT (test code = 2219) 32 U/L Luis M Carroll JudsonPSA, [id number] 00:00:00* Test Item Value Reference Range Interpretation Comme nts PSA, TOTAL (test code = 2606) 0.60 NG/ML Luis M RoperHEMOGLOBIN [id number] 00:00:00* Test Item Value Reference Range Interpretation Comme nts HEMOGLOBIN A1c (test code = 89568) 5.5 % Luis M RoperLIPID [id number] 00:00:00* Test Item Value Reference Range Interpretation Comme nts CHOLESTEROL (test code = 2210) 166 MG/DL TRIGLYCERIDES (test code = 2232) 235 MG/DL HDL CHOLESTEROL (test code = 2220) 45 MG/DL CALC LDL CHOL (test code = 2237) 88 MG/DL RISK RATIO LDL/HDL (test cod e = 2238) 1.96 RATIO LuisM RoperCOMPREHENSIVE METABOLIC [id number] 00:00:00* Test Item Value Reference Range Interpretation Comme nts GLUCOSE (test code = 2217) 108 MG/DL BUN (test code = 2208) 22 MG/DL CREATININE (test code = 2214) 1.18 MG/DL eGFR (2020 CKD-EPI) (test co de = 21074) 74 ML/MIN/1.73 CALC BUN/CREAT (test code = 2235) 19 RATIO SODIUM (test code = 2231) 141 MEQ/L POTASSIUM (test code = 2228) 4.1 MEQ/L CHLORIDE (test code = 2215) 103 MEQ/L CARBON DIOXIDE (test code = 2206) 24 MEQ/L CALCIUM (test code = 2209) 9.6 MG/DL PROTEIN, TOTAL (test code = 2229) 7.2 G/DL ALBUMIN (test code = 2201) 4.5 G/DL CALC GLOBULIN (test code = 2240) 2.7 G/DL CALC A/G RATIO (test code = 2234) 1.7 RATIO BILIRUBIN, TOTAL (test code = 2207) 0.2 MG/DL ALKALINE PHOSPHATASE (test code = 2204) 73 U/L AST (test code = 2218) 23 U/L ALT (test code = 2219) 32 U/L Luis M RoperPSA, [id number] 00:00:00* Test Item Value Reference Range Interpretation Comme nts PSA, TOTAL (test code = 2606) 0.60 NG/ML Luis M RoperCOMPREHENSIVE METABOLIC [id number] 00:00:00* Test Item Value Reference Range Interpretation Comme nts GLUCOSE (test code = 2217) 106 MG/DL BUN (test code = 2208) 17 MG/DL CREATININE (test code = 2214) 0.96 MG/DL eGFR (2020 CKD-EPI) (test co de = 15173) 95 ML/MIN/1.73 CALC BUN/CREAT (test code = [...] = 2219) 22 U/L Luis M RoperHEMOGLOBIN [id number] 00:00:00* Test Item Value Reference Range Interpretation Comme nts HEMOGLOBIN A1c (test code = 57959) 5.7 % Luis M RoperLIPID [id number] 00:00:00* Test Item Value Reference Range Interpretation Comme nts CHOLESTEROL (test code = 2210) 162 MG/DL TRIGLYCERIDES (test code = 2232) 76 MG/DL HDL CHOLESTEROL (test code = 2220) 49 MG/DL CALC LDL CHOL (test code = 2237) 96 MG/DL RISK RATIO LDL/HDL (test cod e = 2238) 1.96 RATIO Luis M RoperPSA, [id number] 00:00:00* Test Item Value Reference Range Interpretation Comme nts PSA, TOTAL (test code = 2606) 0.63 NG/ML Luis M RoperCOMPREHENSIVE METABOLIC [id number] 00:00:00* Test Item Value Reference Range Interpretation Comme nts GLUCOSE (test code = 2217) 106 MG/DL BUN (test code = 2208) 17 MG/DL CREATININE (test code = 2214) 0.96 MG/DL eGFR (2020 CKD-EPI) (test co de = 23224) 95 ML/MIN/1.73 CALC BUN/CREAT (test code = [...] = 2219) 22 U/L Luis M RoperHEMOGLOBIN [id number] 00:00:00* Test Item Value Reference Range Interpretation Comme nts HEMOGLOBIN A1c (test code = 92643) 5.7 % Lius M RoperLIPID [id number] 00:00:00* Test Item Value Reference Range Interpretation Comme nts CHOLESTEROL (test code = 2210) 162 MG/DL TRIGLYCERIDES (test code = 2232) 76 MG/DL HDL CHOLESTEROL (test code = 2220) 49 MG/DL CALC LDL CHOL (test code = 2237) 96 MG/DL RISK RATIO LDL/HDL (test cod e = 2238) 1.96 RATIO Luis M RoperPSA, [id number] 00:00:00* Test Item Value Reference Range Interpretation Comme nts PSA, TOTAL (test code = 2606) 0.63 NG/ML Luis M RoperCOMPREHENSIVE METABOLIC [id number] 00:00:00* Test Item Value Reference Range Interpretation Comme nts GLUCOSE (test code = 2217) 106 MG/DL BUN (test code = 2208) 17 MG/DL CREATININE (test code = 2214) 0.96 MG/DL eGFR (2020 CKD-EPI) (test co de = 15007) 95 ML/MIN/1.73 CALC BUN/CREAT (test code = [...] = 2219) 22 U/L Luis M RoperHEMOGLOBIN [id number] 00:00:00* Test Item Value Reference Range Interpretation Comme nts HEMOGLOBIN A1c (test code = 65576) 5.7 % Luis M RoperLIPID [id number] 00:00:00* Test Item Value Reference Range Interpretation Comme nts CHOLESTEROL (test code = 2210) 162 MG/DL TRIGLYCERIDES (test code = 2232) 76 MG/DL HDL CHOLESTEROL (test code = 2220) 49 MG/DL CALC LDL CHOL (test code = 2237) 96 MG/DL RISK RATIO LDL/HDL (test cod e = 2238) 1.96 RATIO Luis M RoperPSA, [id number] 00:00:00* Test Item Value Reference Range Interpretation Comme nts PSA, TOTAL (test code = 2606) 0.63 NG/ML Luis M RoperCOMPREHENSIVE METABOLIC [id number] 00:00:00* Test Item Value Reference Range Interpretation Comme nts GLUCOSE (test code = 2217) 106 MG/DL BUN (test code = 2208) 17 MG/DL CREATININE (test code = 2214) 0.96 MG/DL eGFR (2020 CKD-EPI) (test co de = 97811) 95 ML/MIN/1.73 CALC BUN/CREAT (test code = [...] = 2219) 22 U/L Luis M RoperHEMOGLOBIN [id number] 00:00:00* Test Item Value Reference Range Interpretation Comme nts HEMOGLOBIN A1c (test code = 31214) 5.7 % Luis M RoperLIPID [id number] 00:00:00* Test Item Value Reference Range Interpretation Comme nts CHOLESTEROL (test code = 2210) 162 MG/DL TRIGLYCERIDES (test code = 2232) 76 MG/DL HDL CHOLESTEROL (test code = 2220) 49 MG/DL CALC LDL CHOL (test code = 2237) 96 MG/DL RISK RATIO LDL/HDL (test cod e = 2238) 1.96 RATIO Luis M RoperPSA, [id number] 00:00:00* Test Item Value Reference Range Interpretation Comme nts PSA, TOTAL (test code = 2606) 0.63 NG/ML Luis M RoperCOMPREHENSIVE METABOLIC [id number] 00:00:00* Test Item Value Reference Range Interpretation Comme nts GLUCOSE (test code = 2217) 106 MG/DL BUN (test code = 2208) 17 MG/DL CREATININE (test code = 2214) 0.96 MG/DL eGFR (2020 CKD-EPI) (test co de = 05858) 95 ML/MIN/1.73 CALC BUN/CREAT (test code = [...] = 2219) 22 U/L Luis M RoperHEMOGLOBIN [id number] 00:00:00* Test Item Value Reference Range Interpretation Comme manuel HEMOGLOBIN A1c (test code = 95379) 5.7 % Luis M RoperLIPID [id number] 00:00:00* Test Item Value Reference Range Interpretation Comme nts CHOLESTEROL (test code = 2210) 162 MG/DL TRIGLYCERIDES (test code = 2232) 76 MG/DL HDL CHOLESTEROL (test code = 2220) 49 MG/DL CALC LDL CHOL (test code = 2237) 96 MG/DL RISK RATIO LDL/HDL (test cod e = 2238) 1.96 RATIO Luis M RoperPSA, [id number] 00:00:00* Test Item Value Reference Range Interpretation Comme nts PSA, TOTAL (test code = 2606) 0.63 NG/ML Luis M RoperCOMPREHENSIVE METABOLIC [id number] 00:00:00* Test Item Value Reference Range Interpretation Comme nts GLUCOSE (test code = 2217) 106 MG/DL BUN (test code = 2208) 17 MG/DL CREATININE (test code = 2214) 0.96 MG/DL eGFR (2020 CKD-EPI) (test co de = 07112) 95 ML/MIN/1.73 CALC BUN/CREAT (test code = [...] = 2219) 22 U/L Luis M RoperHEMOGLOBIN [id number] 00:00:00* Test Item Value Reference Range Interpretation Comme nts HEMOGLOBIN A1c (test code = 11309) 5.7 % Luis M RoperLIPID [id number] 00:00:00* Test Item Value Reference Range Interpretation Comme nts CHOLESTEROL (test code = 2210) 162 MG/DL TRIGLYCERIDES (test code = 2232) 76 MG/DL HDL CHOLESTEROL (test code = 2220) 49 MG/DL CALC LDL CHOL (test code = 2237) 96 MG/DL RISK RATIO LDL/HDL (test cod e = 2238) 1.96 RATIO Luis M RoperPSA, [id number] 00:00:00* Test Item Value Reference Range Interpretation Comme nts PSA, TOTAL (test code = 2606) 0.63 NG/ML Luis M Carroll AustinOccult Blood, Fecal, [id number] 00:00:00* Test Item Value Reference Range Interpretation Comme nts Occult Blood, Fecal, IA (kamlesh t code = 21813-1) Negative Luis M F AustinOccult Blood, Fecal, [id number] 00:00:00* Test Item Value Reference Range Interpretation Comme nts Occult Blood, Fecal, IA (kamlesh t code = 22053-1) Negative Luis M F AustinOccult Blood, Fecal, [id number] 00:00:00* Test Item Value Reference Range Interpretation Comme nts Occult Blood, Fecal, IA (kamlesh t code = 53420-4) Negative Luis M F AustinOccult Blood, Fecal, [id number] 00:00:00* Test Item Value Reference Range Interpretation Comme nts Occult Blood, Fecal, IA (kamlesh t code = 79621-9) Negative Luis M F AustinOccult Blood, Fecal, [id number] 00:00:00* Test Item Value Reference Range Interpretation Comme nts Occult Blood, Fecal, IA (kamlesh t code = 10720-6) Negative Luis M RoperOccult Blood, Fecal, [id number] 00:00:00* Test Item Value Reference Range Interpretation Comme nts Occult Blood, Fecal, IA (kamlesh t code = 74021-4) Negative Luis M RoperN-TERMINAL [id number] 04:07:03* Test Item Value Reference Range Interpretation Comme nts NT-proBNP (test code = 11670-4) 37 pg/mL <=125 Lab Interpretation (test cod e = 22578-0) [facility] (77758)2023-06-01 03:58:42* Test Item Value Reference Range Interpretation Comme nts NA (test code = 6953249775) 141 mmol/L 135-145 K (test code = 5548883106) 3.9 mmol/L 3.5-5.0 CL (test code = 7592641291) 104 mmol/L 98-108 CO2 TOTAL (test code = 1443806952) 27 mmol/L 23-31 AGAP (test code = 2998715296) 10 2-16 BUN (test code = 7236796740) 17 mg/dL 7-23 GLUCOSE (test code = 3146425341) 125 mg/dL 70-110 H CREATININE (test code = 9111416102) 0.78 mg/dL 0.60-1.25 TOTAL BILI (test code = 2518663549) 0.4 mg/dL 0.1-1.1 CALCIUM (test code = 7930899720) 8.9 mg/dL 8.6-10.6 T PROTEIN (test code = 3271741952) 7.7 g/dL 6.3-8.2 ALBUMIN (test code = 4571972514) 4.1 g/dL 3.5-5.0 ALK PHOS (test code = 5365135571) 71 U/L 34-122 ALTv (test code = 1742-6) 34 U/L 5-50 AST(SGOT) (test code = 0204205193) 27 U/L 13-40 eGFR (test code = 8413702191) 104.9 mL/min/1.73m2 TRES (test code = TRES) [...] imaging tests). Lab Interpretation (test code = 08351-9) Abnormal [facility] WITH [id number] 03:43:59* Test Item Value Reference Range Interpretation Comme nts WBC (test code = 6690-2) 11.80 See_Comment H [Automated [employer]] The system which generated this result transmitted reference range: 4.20 - 10.70 10*3/?L. The reference range was not used to interpret this result as normal/abnormal. RBC (test code = 789-8) 4.79 See_Comment [Automated [employer]] The system which generated this result transmitted [...] 34.0 g/dL 31.2-35.0 RDW-SD (test code = 94502-9) 42.2 fL 38.5-51.6 RDW-CV (test code = 788-0) 12.3 % 12.1-15.4 PLT (test code = 777-3) 290 See_Comment [Automated [employer]] The system which generated this result transmitted reference range: 150 - 328 10*3/?L. The reference range was not used to interpret this result as normal/abnormal. MPV (test code = 13919-5) 11.1 fL 9.8-13.0 NRBC/100 WBC (test code = 3987836034) 0.0 See_Comment [Automated [employer] ssage] The system which generated this result transmitted reference range: 0.0 - 10.0 /100 WBCs. The reference range was not used to interpret this result as normal/abnormal. NRBC x10^3 (test code = 4858563000) See_Comment [Automated [employer]] The system which generated this result transmitted reference range: 10*3/?L. The reference range was not used to interpret this result as normal/abnormal. GRAN MAT (NEUT) % (test code = 770-8) 61.1 % IMM GRAN % (test code = 4608599415) 0.60 % LYMPH % (test code = 736-9) 22.8 % MONO % (test code = 5905-5) 10.6 % EOS % (test code = 713-8) 4.2 % BASO % (test code = 706-2) 0.7 % GRAN MAT x10^3(ANC) (test code = 2805984985) 7.21 10*3/uL 1.99-6.95 H IMM GRAN x10^3 (test code = 9141716895) 0.07 10*3/uL 0.00-0.06 H LYMPH x10^3 (test code = 731-0) 2.69 10*3/uL 1.09-3.23 MONO x10^3 (test code = 742-7) 1.25 10*3/uL 0.36-1.02 H EOS x10^3 (test code = 711-2) 0.50 10*3/uL 0.06-0.53 BASO x10^3 (test code = 704-7) 0.08 10*3/uL 0.01-0.09 Lab Interpretation (test code = 45580-2) [facility]normal [facility] [id number] 00:00:00* Test Item Value Reference Range Interpretation Comme nts HEMOGLOBIN A1c (test code = 38794) 5.7 % [facility] [id number] 00:00:00* Test Item Value Reference Range Interpretation [...] ABS NUCLEATED RBCS (test cod e = 88387) 0.00 K/UL Luis M [id number] 00:00:00* Test Item Value Reference Range Interpretation Comme manuel TSH, THIRD GENERATION (test code = 2821) 0.900 UIU/ML Luis M RoperLIPID [id number] 00:00:00* Test Item Value Reference Range Interpretation Comme nts CHOLESTEROL (test code = 2210) 206 MG/DL TRIGLYCERIDES (test code = 2232) 286 MG/DL HDL CHOLESTEROL (test code = 2220) 52 MG/DL CALC LDL CHOL (test code = 2237) 113 MG/DL RISK RATIO LDL/HDL (test cod e = 2238) 2.17 RATIO Luis M RoperCOMPREHENSIVE METABOLIC [id number] 00:00:00* Test Item Value Reference Range Interpretation Comme nts GLUCOSE (test code = 2217) 121 MG/DL BUN (test code = 2208) 19 MG/DL CREATININE (test code = 2214) 0.94 MG/DL eGFR AMER. (test cod e = 14401) 110 ML/MIN/1.73 eGFR NON- AMER. (test code = 48719) 95 ML/MIN/1.73 CALC BUN/CREAT (test code = [...] = 2219) 59 U/L Luis M RoperHEMOGLOBIN [id number] 00:00:00* Test Item Value Reference Range Interpretation Comme nts HEMOGLOBIN A1c (test code = 96451) 5.7 % Luis M RoperCBC W/AUTO [id number] 00:00:00* Test Item Value Reference Range Interpretation [...] ABS NUCLEATED RBCS (test cod e = 77995) 0.00 K/UL Luis M [id number] 00:00:00* Test Item Value Reference Range Interpretation Comme nts TSH, THIRD GENERATION (test code = 2821) 0.900 UIU/ML Luis M RoperLIPID [id number] 00:00:00* Test Item Value Reference Range Interpretation Comme nts CHOLESTEROL (test code = 2210) 206 MG/DL TRIGLYCERIDES (test code = 2232) 286 MG/DL HDL CHOLESTEROL (test code = 2220) 52 MG/DL CALC LDL CHOL (test code = 2237) 113 MG/DL RISK RATIO LDL/HDL (test cod e = 2238) 2.17 RATIO Luis M RoperCOMPREHENSIVE METABOLIC [id number] 00:00:00* Test Item Value Reference Range Interpretation Comme nts GLUCOSE (test code = 2217) 121 MG/DL BUN (test code = 2208) 19 MG/DL CREATININE (test code = 2214) 0.94 MG/DL eGFR AMER. (test cod e = 47618) 110 ML/MIN/1.73 eGFR NON- AMER. (test code = 10360) 95 ML/MIN/1.73 CALC BUN/CREAT (test code = [...] = 2219) 59 U/L Luis M RoperHEMOGLOBIN [id number] 00:00:00* Test Item Value Reference Range Interpretation Comme manuel HEMOGLOBIN A1c (test code = 38052) 5.7 % Luis M RoperCBC W/AUTO [id number] 00:00:00* Test Item Value Reference Range Interpretation Comme manuel WBC (test code = 1001) 11.5 K/UL [...] ABS NUCLEATED RBCS (test cod e = 04014) 0.00 K/UL Luis M [id number] 00:00:00* Test Item Value Reference Range Interpretation Comme nts TSH, THIRD GENERATION (test code = 2821) 0.900 UIU/ML Luis M RoperLIPID [id number] 00:00:00* Test Item Value Reference Range Interpretation Comme nts CHOLESTEROL (test code = 2210) 206 MG/DL TRIGLYCERIDES (test code = 2232) 286 MG/DL HDL CHOLESTEROL (test code = 2220) 52 MG/DL CALC LDL CHOL (test code = 2237) 113 MG/DL RISK RATIO LDL/HDL (test cod e = 2238) 2.17 RATIO Luis M RoperCOMPREHENSIVE METABOLIC [id number] 00:00:00* Test Item Value Reference Range Interpretation Comme nts GLUCOSE (test code = 2217) 121 MG/DL BUN (test code = 2208) 19 MG/DL CREATININE (test code = 2214) 0.94 MG/DL eGFR AMER. (test cod e = 16681) 110 ML/MIN/1.73 eGFR NON- AMER. (test code = 57691) 95 ML/MIN/1.73 CALC BUN/CREAT (test code = [...] = 2219) 59 U/L Luis M RoperHEMOGLOBIN [id number] 00:00:00* Test Item Value Reference Range Interpretation Comme nts HEMOGLOBIN A1c (test code = 63335) 5.7 % Luis M RoperCBC W/AUTO [id number] 00:00:00* Test Item Value Reference Range Interpretation [...] ABS NUCLEATED RBCS (test cod e = 08081) 0.00 K/UL Luis M [id number] 00:00:00* Test Item Value Reference Range Interpretation Comme nts TSH, THIRD GENERATION (test code = 2821) 0.900 UIU/ML Luis M RoperLIPID [id number] 00:00:00* Test Item Value Reference Range Interpretation Comme nts CHOLESTEROL (test code = 2210) 206 MG/DL TRIGLYCERIDES (test code = 2232) 286 MG/DL HDL CHOLESTEROL (test code = 2220) 52 MG/DL CALC LDL CHOL (test code = 2237) 113 MG/DL RISK RATIO LDL/HDL (test cod e = 2238) 2.17 RATIO Luis M RoperCOMPREHENSIVE METABOLIC [id number] 00:00:00* Test Item Value Reference Range Interpretation Comme nts GLUCOSE (test code = 2217) 121 MG/DL BUN (test code = 2208) 19 MG/DL CREATININE (test code = 2214) 0.94 MG/DL eGFR AMER. (test cod e = 63208) 110 ML/MIN/1.73 eGFR NON- AMER. (test code = 72488) 95 ML/MIN/1.73 CALC BUN/CREAT (test code = [...] = 2219) 59 U/L Luis M RoperHEMOGLOBIN [id number] 00:00:00* Test Item Value Reference Range Interpretation Comme nts HEMOGLOBIN A1c (test code = 22349) 5.7 % Luis M RoperCBC W/AUTO [id number] 00:00:00* Test Item Value Reference Range Interpretation [...] ABS NUCLEATED RBCS (test cod e = 16682) 0.00 K/UL Luis M [id number] 00:00:00* Test Item Value Reference Range Interpretation Comme nts TSH, THIRD GENERATION (test code = 2821) 0.900 UIU/ML Luis M RoperLIPID [id number] 00:00:00* Test Item Value Reference Range Interpretation Comme nts CHOLESTEROL (test code = 2210) 206 MG/DL TRIGLYCERIDES (test code = 2232) 286 MG/DL HDL CHOLESTEROL (test code = 2220) 52 MG/DL CALC LDL CHOL (test code = 2237) 113 MG/DL RISK RATIO LDL/HDL (test cod e = 2238) 2.17 RATIO Luis M RoperCOMPREHENSIVE METABOLIC [id number] 00:00:00* Test Item Value Reference Range Interpretation Comme nts GLUCOSE (test code = 2217) 121 MG/DL BUN (test code = 2208) 19 MG/DL CREATININE (test code = 2214) 0.94 MG/DL eGFR AMER. (test cod e = 66955) 110 ML/MIN/1.73 eGFR NON- AMER. (test code = 65858) 95 ML/MIN/1.73 CALC BUN/CREAT (test code = [...] = 2219) 59 U/L Luis M RoperHEMOGLOBIN [id number] 00:00:00* Test Item Value Reference Range Interpretation Comme manuel HEMOGLOBIN A1c (test code = 55673) 5.7 % Luis M RoperCBC W/AUTO [id number] 00:00:00* Test Item Value Reference Range Interpretation Comme manuel WBC (test code = 1001) 11.5 K/UL [...] ABS NUCLEATED RBCS (test cod e = 46946) 0.00 K/UL Luis M [id number] 00:00:00* Test Item Value Reference Range Interpretation Comme nts TSH, THIRD GENERATION (test code = 2821) 0.900 UIU/ML Luis M RoperLIPID [id number] 00:00:00* Test Item Value Reference Range Interpretation Comme nts CHOLESTEROL (test code = 2210) 206 MG/DL TRIGLYCERIDES (test code = 2232) 286 MG/DL HDL CHOLESTEROL (test code = 2220) 52 MG/DL CALC LDL CHOL (test code = 2237) 113 MG/DL RISK RATIO LDL/HDL (test cod e = 2238) 2.17 RATIO Luis M RoperCOMPREHENSIVE METABOLIC [id number] 00:00:00* Test Item Value Reference Range Interpretation Comme nts GLUCOSE (test code = 2217) 121 MG/DL BUN (test code = 2208) 19 MG/DL CREATININE (test code = 2214) 0.94 MG/DL eGFR AMER. (test cod e = 90045) 110 ML/MIN/1.73 eGFR NON- AMER. (test code = 96377) 95 ML/MIN/1.73 CALC BUN/CREAT (test code = [...] code = 2219) 59 U/L Luis M RoperCOVID-19 (ID NOW RAPID TESTING)2021-05-26 02:47:53* Test Item Value Reference Range Interpretation Comme nts SARS-CoV-2 Rapid ID NOW (test code = 74317-1) Not Detected Not Detected TRES (test code = TRES) ID NOW COVID-19 As say is an isothermal nucleic acid amplification test intended for the qualitative detection of nucleic acid from SARS-CoV-2 viral RNA in nasopharyngeal ([employer]) specimens. It is used under Emergency Use [...] clinically indicated. Lab Interpretation (test code = 66296-7) Normal [facility] Notes Date/Time Note Provider Source Luis M Harris [facility]2024-10-22 00:00:00 Luis M Harris [facility]2024-10-14 00:00:00 Luis M Harris [facility]2024-08-22 00:00:00 Luis M Harris [facility]2024-07-25 00:00:00 Luis M Harris [facility]2024-05-30 00:00:00 Luis M Harris [facility]2023-08-17 23:57:17 Pt given printed and verbal discharge [...] gait, in no apparent distress. [id number] 22:57:41 Report given to JACINDA Cifuentes Rupa Bergeron [place] [id number] 21:40:28 Pt states he has been having cough for the last couple of weeks, pt states that on Sunday he was seen at the [facility] and given Cefdiner 300 mg , [...] neg home test for COVID Cecy Ocasio [facility]"
[2024-09-05] MEDS ORDERED: ALBUTEROL 2.5 MG/3 ML NEB SOL ONE (18:34)
[2024-09-05] MEDS ORDERED: IPRATROPIUM BROM 0.5MG/2.5ML ONE (18:34)
[2024-09-05] MEDS ORDERED: METHYLPREDNISOLONE 125 MG INJ ONE (18:34)
[2024-09-05 18:41] LABS: Absolute Lymphocytes (CBC) 1.1 K/uL (0.7-4.9); Absolute Monocytes 0.7 K/uL (0.1-1.3); Absolute Neutrophil 5.4 K/uL (1.8-8.0); Basophils % 0.2 % (0-1.3); Hematocrit 45.6 % (39.6-49.0); Hemoglobin 15.6 g/dL (13.6-17.9); Lymphocytes % 14.8 % (15.3-44.8); MCH 31.2 pg (27.0-35.0); MCHC 34.2 g/dL (32.0-36.0); MPV 8.7 fL (7.6-11.3); Monocytes % 10.2 % (3.3-12.3); Neutrophils % 74.8 % (41.7-73.7); Nucleated Red Blood Cells % 0.1 % (0-0); Platelets 279 thou/uL (152-406); RBC Red Blood Cell Count 5.01 M/uL (4.33-5.43); Red Cell Distribution Width 12.6 % (12.1-15.2)
[2024-09-05 18:57] LABS: Anion Gap 8.3 mEq/L (5.0-15.0); Potassium 4.3 mEq/L (3.5-5.1); Troponin High Sensitivity 3.1 pg/mL (<58.9)
--- NOTE | 2024-09-05 19:17 | ER ---
Nurse's Notes [facility] Name: Caesar Hurt Age: 53 yrs Sex: Male : 1970 Arrival Date: 09/05/2024 Time: 17:54 Bed 8 Private MD: Diagnosis: Mild intermittent asthma with (acute) exacerbation Presentation: 09/05 18:22 Chief complaint: Patient states: I was diagnosed with the flu on 08/31. The difficulty jb4 breathing has gotten worse and I am not having chest pain across my mid chest. Coronavirus screen: At this time, the client does not indicate any symptoms associated with coronavirus-19. Ebola Screen: No symptoms or risks identified at this time. Initial Sepsis Screen: Does the patient meet any 2 criteria? No. Patient's initial sepsis screen is negative. Does the patient have a suspected source of infection? No. Patient's initial sepsis screen is negative. Risk Assessment: Do you want to hurt yourself or someone else? Patient reports no desire to harm self or others. Onset of symptoms was August 31, 2024. Transition of care: patient was not received from another setting of care. 18:22 Method Of Arrival: Ambulatory jb4 18:22 Acuity: VALENTE 2 jb4 Triage Assessment: 18:26 General: Appears in no apparent distress. uncomfortable, ill, obese, Behavior is calm, jb4 cooperative, appropriate for age. Pain: Complains of pain in mid chest Pain does not radiate. Pain currently is 7 out of 10 on a pain scale. Neuro: Level of Consciousness is awake, alert, obeys commands, Oriented to person, place, time, situation. Respiratory: Reports shortness of breath at rest on exertion cough that is non-productive, persistent Airway is patent Respiratory effort is even, unlabored, Respiratory pattern is regular, symmetrical, Onset: The symptoms/episode began/occurred gradually, the patient has mild shortness of breath. Derm: Skin is intact, Skin is pink, warm \T\ dry. Musculoskeletal: Circulation, motion, and sensation intact. Range of motion: intact in all extremities. Historical: - Allergies: 18:26 No Known Allergies; jb4 - PMHx: 18:26 Hypertensive disorder; Asthma; jb4 - PSHx: 18:26 None; jb4 - Immunization history:: Adult Immunizations up to date. - Infectious Disease History:: Denies. - Social history:: Smoking status: Patient denies any tobacco usage or history of. Screenin:27 [facility] ED Fall Risk Assessment (Adult) History of falling in the last 3 months, jb4 including since admission No falls in past 3 months (0 pts) Confusion or Disorientation Yes (5 pts) Intoxicated or Sedated No (0 pts) Impaired Gait No (0 pts) Mobility Assist Device Used No (0 pt) Altered Elimination No (0 pt) Score/Fall Risk Level 0 - 2 = Low Risk Oriented to surroundings, Maintained a safe environment. Abuse screen: Denies threats or abuse. Nutritional screening: No deficits noted. Tuberculosis screening: No symptoms or risk factors identified. Vital Signs: 18:22 BP 132 / 83; Pulse 62; Resp 16; Temp 98(TE); Pulse Ox 95% on R/A; Weight 99.34 kg (R); jb4 Height 5 ft. 5 in. (R); Pain 7/10; 19:33 BP 126 / 72; Pulse 69; Resp 18; Pulse Ox 96% ; cp4 18:22 Body Mass Index 36.44 (99.34 kg, 165.1 cm) jb4 18:22 Pain Scale: Adult jb4 ED Course: 17:56 Patient arrived in ED. ra3 18:05 Erick Bailon MD is Attending Physician. ec2 18:22 Amrit López, RN is Primary Nurse. jb4 18:25 Triage completed. jb4 18:26 Arm band placed on right wrist. jb4 18:27 Patient has correct armband on for positive identification. Bed in low position. Call jb4 light in reach. Side rails up X 1. Provided Education on: plan of care. 18:27 No provider procedures requiring assistance completed. jb4 18:34 Initial lab(s) drawn, by me, sent to lab. EKG done. Inserted saline lock: 22 gauge in tm3 left antecubital area, using aseptic technique. 19:16 XRAY Chest (1 view) In Process Unspecified. EDMS 19:34 intact, bleeding controlled, No redness/swelling at site. Pressure dressing applied. cp4 Administered Medications: 18:44 Drug: MethylPrednisoLONE IVP 125 mg IVP once Route: IVP; Site: left antecubital; jb4 19:33 Follow up: Response: No adverse reaction cp4 18:44 Drug: DuoNeb Nebulize (3:1) (2.5 mg - 0.5 mg) 3 ml Nebulizer once Route: Nebulizer; jb4 19:33 Follow up: Response: No adverse reaction cp4 Medication: 18:27 VIS not applicable for this client. jb4 Outcome: 19:16 Discharge ordered by . ec2 19:34 Discharged to home ambulatory, cp4 19:34 Condition: stable 19:34 Discharge instructions given to patient, family, Instructed on discharge instructions, follow up and referral plans. medication usage, Demonstrated understanding of instructions, follow-up care, medications, Prescriptions given X 2, 19:35 Patient left the ED. cp4 Signatures: Dispatcher [employer] EDPatrice Pang tm3 Amrit López RN RN jb4 Erick Bailon MD MD ec2 Мария Vann cp4 Radha Lema ra3
--- NOTE | 2024-09-05 19:17 | EDPHYS ---
Physician Documentation [facility] Name: Caesar Hurt Age: 53 yrs Sex: Male : 1970 Arrival Date: 09/05/2024 Time: 17:54 Bed 8 Private MD: ED Physician Erick Bailon HPI: 09/05 18:31 This 53 yrs old Male presents to ER via Ambulatory with complaints of ec2 Breathing Difficulty, Chest Pain. 18:31 Patient with recent diagnosis of influenza on the , reports today for evaluation of ec2 persistent cough and chest pain secondary to cough. Patient reports that symptoms have persisted and have not gotten better. Subjective fevers and chills, no vomiting or diarrhea. Was on prednisone for about a time. States that he also has an albuterol inhaler that he does not regularly use.. Historical: - Allergies: 18:26 No Known Allergies; jb4 - PMHx: 18:26 Hypertensive disorder; Asthma; jb4 - PSHx: 18:26 None; jb4 - Immunization history:: Adult Immunizations up to date. - Infectious Disease History:: Denies. - Social history:: Smoking status: Patient denies any tobacco usage or history of. ROS: 18:31 Constitutional: as per hpi ec2 Exam: 18:31 Constitutional: GEN: NAD Head: atraumatic Eyes: EOMI Ears: External ears are ec2 normal. CV: regular rate LUNGS: no respiratory distress, scattered wheezes appreciated ABD: non-distended SKIN: no evidence of rashes MSK: no evidence of trauma Vital Signs: 18:22 BP 132 / 83; Pulse 62; Resp 16; Temp 98(TE); Pulse Ox 95% on R/A; Weight 99.34 kg (R); jb4 Height 5 ft. 5 in. (R); Pain 7/10; 19:33 BP 126 / 72; Pulse 69; Resp 18; Pulse Ox 96% ; cp4 18:22 Body Mass Index 36.44 (99.34 kg, 165.1 cm) jb4 18:22 Pain Scale: Adult jb4 MDM: 18:31 Data reviewed: vital signs, nurses notes. ED course: Patient arrives today for ec2 persistent URI signs and symptoms along with chest pain with cough. Examination is remarkable for scattered wheezes noted. EKG obtained, independently reviewed and interpreted by me, shows normal sinus rhythm, rate of 59, no acute ST segment elevations, intervals are nonactionable. Will obtain lab work including chest x-ray, give the patient steroids as well as DuoNeb. Suspect persistent asthma exacerbation. Additionally considering pneumonia.. 18:33 Medical Screening Exam initiated ec2 19:15 ED course: Metabolic profile reassuring. CBC reassuring. Troponin is within normal ec2 ranges. Chest x-ray independently reviewed and interpreted by me, shows no acute pathology. Will compared to external chest x-ray, appears similar.. 19:15 ED course: On reassessment patient is well-appearing no acute distress. Will discharge ec2 home. Return precautions given. Will prescribe additional steroids, will prescribe the patient azithromycin given the patient's history of asthma.. 09/05 18:28 Order name: Basic Metabolic Panel; Complete Time: 19:14 ec2 09/05 18:28 Order name: CBC with Diff; Complete Time: 19:14 ec2 09/05 18:28 Order name: Troponin HS; Complete Time: 19:14 ec2 09/05 18:28 Order name: XRAY Chest (1 view) ec2 09/05 18:28 Order name: Cardiac monitoring; Complete Time: 18:44 ec2 09/05 18:28 Order name: EKG - Nurse/Tech; Complete Time: 18:44 ec2 09/05 18:28 Order name: IV Saline Lock; Complete Time: 18:44 ec2 09/05 18:28 Order name: Labs collected and sent; Complete Time: 18:44 ec2 09/05 18:28 Order name: O2 Per Protocol; Complete Time: 18:44 ec2 09/05 18:28 Order name: O2 Sat Monitoring; Complete Time: 18:44 ec2 Administered Medications: 18:44 Drug: MethylPrednisoLONE IVP 125 mg IVP once Route: IVP; Site: left antecubital; jb4 19:33 Follow up: Response: No adverse reaction cp4 18:44 Drug: DuoNeb Nebulize (3:1) (2.5 mg - 0.5 mg) 3 ml Nebulizer once Route: Nebulizer; jb4 19:33 Follow up: Response: No adverse reaction cp4 Disposition Summary: 09/05/24 19:16 Discharge Ordered Notes: Location: Home ec2 Condition: Stable ec2 Diagnosis - Mild intermittent asthma with (acute) exacerbation ec2 Followup: ec2 - With: Private Physician - When: - Reason: Re-evaluation by your physician Discharge Instructions: - Discharge Summary Sheet ec2 - Asthma, Adult ec2 Forms: - Medication Reconciliation Form ec2 - Antibiotic Education ec2 - Prescription Opioid Use ec2 - Patient Portal Instructions ec2 - Leadership Thank You Letter ec2 - Work release form cp4 Prescriptions: - Zithromax Z-Melo 250 mg Oral Tablet - take 1 tablet ORAL route as directed for 5 days Day 1 - take two (2) tablets ec2 one time. Day 2, 3, 4 , 5 take one (1) tablet once daily.; 6 tablet; Refills: 0, Product Selection Permitted - Prednisone 20 mg Oral Tablet - take 2 tablets ORAL route once daily for 5 days; 10 tablet; Refills: 0, Product ec2 Selection Permitted Signatures: Dispatcher [employer] Amrit Fernandes RN RN jb4 Erick Bailon MD MD ec2 Мария Vann cp4 Corrections: (The following items were deleted from the chart) 18:29 18:29 Chest Single View+[email or web address] ordered. LATIA JEFFERY
--- NOTE | 2024-09-05 19:27 | RAD REPORT ---
Procedure: Chest Single View HISTORY: Cough COMPARISON: August 31, 2024 FINDINGS: The lungs appear clear of acute infiltrate. No significant pleural effusion noted. The heart is normal size. IMPRESSION: No acute abnormality is displayed.
[2024-09-05 21:46] VITALS: TEMP 98
[2024-09-05 21:51] VITALS: BP 126/72; O2SAT 96
--- NOTE | 2024-09-08 12:03 | EKG ---
Test Date: 2024-09-05 Test Time: 18:23:30 Soaker Meat: TM MEASUREMENT RESULTS: Intervals: Rate: 59 DC: 158 QRSD: 100 QT: 378 QTc: 374 [place]: P: 40 DC: 158 QRS: 36 T: 38 INTERPRETIVE STATEMENTS: Sinus bradycardia Otherwise normal ECG Compared to ECG 06/04/2023 14:56:55 Sinus rhythm no longer present Electronically Signed On 09-08-24 12:01:14 BUSINESS CONTINUITY DIRECTOR by Americo Tobias
== END 2024-09-05 19:35 | disposition home or self-care (01) ==
LOC: ER 17:54
DX: J45.21 Mild intermittent asthma with (acute) exacerbation (principal)
CPT/HCPCS: 36415; 71045; 80048; 84484; 85025; 93005; 96374; 99285; J2919; J7613; J7644

== ENCOUNTER 2025-07-25 20:26 | Emergency (ER) | payer SELFPAY ==
--- OUTSIDE RECORDS SUMMARY | 2025-07-25 20:37 | XMS REPORT | Continuity of Care Document ---
Author Name Unknown Address [address] [facility] [address] [place] [address] Organization [facility] [place] Address [address] [facility] [place] [address] Care Team Providers Care Professor Sculpture Name Role Phone PCP, PATIENT DOES NOT HAVE A Primary Care Physic donavan Unavailable QUEENIE CHAVES Attending Clinician Unavailable Marlo Brown MD Attending Clinician [phone] Queenie Chaves MD Attending Clinician [phone] COLLINS FAIR Attending Clinician Unavailable Collins Fair DO Attending Clinician [phone] KEYSHA BARNES Attending Clinician Unavailable Keysha Marquez Attending Clinician [phone] Leonila Long RN Attending Clinician Unavailable Lydia Zayas Attending Clinician + [phone] Doctor Unassigned, [place] Attending Clinician U ta Rodriguez, Sandeep Fam Pob I Attending Clinician UnavailEsmer Nielsen Attending Clinician [phone] Paula Thomas RN Attending Clinician Unavailable ESMER AGUIRRE Attending Clinician Unavailable MARLO BROWN Admitting Clinician Unavailable COLLINS FAIR Admitting Clinician Unavailable Payers Payer Name Policy Type Policy Number Effective Date Expirati on Date Source [employer] [id number] 2022 00:00:00 Problems Condition Name Condition Details Condition Category Status Onset Date Resolution Date Last Treatment Date Treating Clinician Comments Source No known active problems No known active problems Disease [facility] Allergies, Adverse Reactions, Alerts Allergy Name Allergy Type Status Severity Reaction(s) Onset Date Inactive Date Treating Clinician Comments Source NO KNOWN ALLERGIE S Drug Class Active [facility] Social History Social Habit Start Date Stop Date Quantity Comments Source Gender identity [facility] Sexual orientation [facility] Exposure to SARS-CoV-2 (event) 2023-01-15 00:00:00 2023-01-25 20:45:00 Not sure [facility] Sex Assigned At 1970 00:00:00 1970 00:00:00 [facility] Smoking Status Start Date Stop Date Source Tobacco smoking consumption unknown [facility] Medications Ordered Medication Name Filled Medication Name Start Date Stop Date Current Medication? Ordering Clinician Indication Dosage Frequency Signature (SIG) Comments Components Source telmisartan 80 mg tablet - 00:00: 00 Yes 1mg Luis M Roper diclofenac 3 % topical gel - 00:00: 00 Yes 1% Luis M Roper ibuprofen 800 mg tablet - 00:00: 00 Yes 1mg Luis M Roper Singulair 10 mg tablet 4-08 00:00: 00 Yes 1mg Luis M Roper telmisartan 40 mg tablet 3- 00:00: 00 Yes 1mg Luis M Roper Flonase Allergy Relief 50 mcg/actuati on nasal spray,suspe nsion 3-27 00:00: 00 Yes 2mcg/ac tuation Luis M Roper Bromfed DM 2 mg-30 mg-10 mg/5 mL oral syrup 3-27 00:00: 00 Yes 10mg/5 mL Luis M Roper albuterol sulfate HFA 90 mcg/actuati on aerosol inhaler 1-20 00:00: 00 Yes 12mcg/a ctuatio n Luis M Roper Bromfed DM 2 mg-30 mg-10 mg/5 mL oral syrup 11-03 00:00: 00 Yes 10mg/5 mL Luis M Roper ondansetron 4 mg disintegrat ing tablet 2023-10 00:00: 00 Yes 1mg Luis M Vitalfed DM 2 mg-30 mg-10 mg/5 mL oral syrup 2023-10- 00:00: 00 Yes 10mg/5 mL Luis M Roper telmisartan 40 mg tablet 2023-10- 00:00: 00 Yes 1mg Luis M Roper Flonase Allergy Relief 50 mcg/actuati on nasal spray,suspe nsion 2023-10- 00:00: 00 Yes 2mcg/ac tuation Luis M Roper cetirizine 10 mg tablet 2023-10 00:00: 00 Yes 1mg Luis M Vitalfed DM 2 mg-30 mg-10 mg/5 mL oral syrup 2023-10 00:00: 00 Yes 10mg/5 mL Luis M Roper telmisartan 40 mg tablet 04-10 00:00: 00 Yes 1mg Luis M Roper TAKE 10 ML BY MOUTH EVERY 4 TO 6 HOURS NEEDED FOR COUGH. - 00:00: 00 12-03 00:00 :00 No [id number] Luis M Roper dexamethaso ne sod phos PF injection 8 mg 2022-10 13:00: 00 10-03 12:53 :00 No 8mg 8 mg, Oral, ONCE, 1 dose, On Sun10/03/23 at 0700, 1 mL [facility] methylPREDN ISolone 4 mg tablets 2022-10 00:00: 00 Yes [id number] Take by mouth SEE-INSTRU CTIONS. follow package directions [facility] levoFLOXaci n 500 mg tablet 2022-10 00:00: 00 Yes [id number] 500mg Take 1 tablet by mouth every 24 (twenty-fo ur) hours. [facility] dextrometho rphan-guaif enesin 10-100 mg/5 mL solution 2022-10 00:00: 00 Yes [id number] 10mL Take 10 mL by mouth every 6 (six) hours as needed for Cough. [facility] albuterol 90 mcg/actuati on inhaler 2022-10 00:00: 00 Yes [id number] 2{puff} Inhale 2 Puffs every 4 (four) hours as needed for Wheezing or Shortness of Breath. [facility] LEVOFLOXACI N 500MG 2022-10 00:00: 00 12-03 00:00 :00 Cori Roper INHALE 2 PUFFS EVERY 4 HOURS NEEDED FOR WHEEZING OR SHORTNESS OF BREATH 2022-10 00:00: 00 12-03 00:00 :00 Cori Roper TAKE 6 TABLETS ON DAY 1 DIRECTED ON PACKAGE AND DECREASE BY 1 TAB EACH DAY FOR A TOTAL OF 6 DAYS 2022-10 00:00: 00 12-03 00:00 :00 No Luis M Roper ipratropium -albuteroL (DUONEB) 0.5 mg-3 mg(2.5 mg base)/3 mL nebulizer solution 3 mL 06-01 13:00: 00 Yes 3mL 3 mL, Inhalation , QID, First dose on Sun06/01/23 at 0800, Until Discontinu ed, Routine [facility] methylpredn isolone sod succ (SOLU-MEDRO L) injection 125 mg 06-01 05:00: 00 Yes 125mg 125 mg, Intravenou s, Q6H, First dose on Sun06/01/23 at 0000, Until Discontinu ed, Routine [facility] albuterol 90 mcg/actuati on inhaler 05-31 00:00: 00 Yes [id number] 2{puff} Inhale 2 Puffs every 4 (four) hours as needed for Wheezing or Shortness of Breath. [facility] TAKE 1 TABLET BY MOUTH TWICE A DAY 05-31 00:00: 00 12-03 00:00 :00 Cori Roper TAKE 1 TABLET EVERY 12 HOURS DAILY. 05-29 00:00: 00 12-03 00:00 :00 No [id number] Luis M Roper TAKE 1 CAPSULE BY MOUTH TWICE DAILY UNTIL GONE 8-15 00:00: 00 12-03 00:00 :00 No Luis M Roper AMOXICILLIN 500MG 6-02 00:00: 00 12-03 00:00 :00 No Luis M Roper HYDROcodone -acetaminop hen (NORCO 5) 5-325 mg tablet 1 tablet 01-26 02:47: 00 01-26 02:55 :00 No 1{tbl} 1 tablet, Oral, ONCE, 1 dose, On Kisha 01/25/23 at 2200, DHARMESH [facility] amoxicillin -clavulanat e (AUGMENTIN) 875-125 mg per tablet 1 tablet 01-26 02:47: 00 01-26 02:55 :00 No 1{tbl} 1 tablet, Oral, ONCE, 1 dose, On [facility] 01/25/23 at 2200, DHARMESH
Re ason for Anti-Infec tive: Documented Infection< br>Documen abdullahi Infection Site: HEENT
D uration of Therapy: Other (see Comments) [facility] PLEASE SEE ATTACHED FOR DETAILED DIRECTIONS 01-26 00:00: 00 12-03 00:00 :00 Cori Roper AMOX/K CLAV [id number] 4-14 00:00: 00 12-03 00:00 :00 Cori Roper ibuprofen 600 mg tablet 01-25 00:00: 00 Yes [id number] 600mg Take 1 tablet by mouth every 8 (eight) hours as needed for Pain (scale 4-6). [facility] TAKE 1 TABLET BY MOUTH IN THE MORNING AND IN THE EVENING FOR 10 DAYS 01-25 00:00: 00 12-03 00:00 :00 Cori Roper TAKE 1 TABLET BY MOUTH EVERY 8 HOURS NEEDED FOR PAIN (SCALE 4-6). 01-25 00:00: 00 12-03 00:00 :00 Cori [place] oRper amoxicillin -clavulanat e 875-125 mg per tablet 01-25 00:00: 00 02-05 04:59 :00 No [id number] 1{tbl} Take 1 tablet by mouth in the morning and 1 tablet in the evening. Do all this for 10 days. [facility] traMADoL 50 mg tablet 01-25 00:00: 00 02-02 04:59 :00 No [id number] 50mg Take 1 tablet by mouth every 8 (eight) hours as needed for Pain (scale 4-6) for up to 7 days. Indication s: acute pain [facility] No known medications No Un didi [facility] Vital Signs Vital Name Observation Time Observation Value Comments S ource Systolic blood pressure 2023-10-03 12:21:00 144 mm[Hg] [facility] Diastolic blood pressure 2023-10-03 12:21:00 93 mm[Hg] [facility] Heart rate 2023-10-03 12:21:00 62 /min [facility] Body temperature 2023-10-03 12:21:00 36.72 [place] [facility] Respiratory rate 2023-10-03 12:21:00 18 /min [facility] Body height 2023-10-03 12:21:00 165.1 cm [facility] Body weight 2023-10-03 12:21:00 103.964 kg [facility] BMI 2023-10-03 12:21:00 38.14 kg/m2 [facility] Oxygen saturation in Arterial blood by Pulse oximetry 2023-10-03 12:21:00 97 /min [facility] Systolic blood pressure 2023-06-01 04:00:00 147 mm[Hg] [facility] Diastolic blood pressure 2023-06-01 04:00:00 89 mm[Hg] [facility] Heart rate 2023-06-01 04:00:00 74 /min [facility] Respiratory rate 2023-06-01 04:00:00 15 /min [facility] Oxygen saturation in Arterial blood by Pulse oximetry 2023-06-01 04:00:00 96 /min [facility] Body temperature 2023-06-01 02:39:00 36.78 [place] [facility] Body height 2023-06-01 02:39:00 165.1 cm [facility] Body weight 2023-06-01 02:39:00 102.967 kg [facility] BMI 2023-06-01 02:39:00 37.77 kg/m2 [facility] Systolic blood pressure 2023-01-26 01:37:00 161 mm[Hg] [facility] Diastolic blood pressure 2023-01-26 01:37:00 83 mm[Hg] [facility] Heart rate 2023-01-26 01:37:00 63 /min [facility] Body temperature 2023-01-26 01:37:00 36.72 [place] [facility] Respiratory rate 2023-01-26 01:37:00 17 /min [facility] Body height 2023-01-26 01:37:00 165.1 cm [facility] Body weight 2023-01-26 01:37:00 104.327 kg [facility] BMI 2023-01-26 01:37:00 38.27 kg/m2 [facility] Oxygen saturation in Arterial blood by Pulse oximetry 2023-01-26 01:37:00 97 /min [facility] Systolic blood pressure 2021-05-26 01:44:00 143 mm[Hg] [facility] Diastolic blood pressure 2021-05-26 01:44:00 91 mm[Hg] [facility] Heart rate 2021-05-26 01:44:00 82 /min [facility] Body temperature 2021-05-26 01:44:00 37.5 [place] [facility] Respiratory rate 2021-05-26 01:44:00 22 /min [facility] Body weight 2021-05-26 01:44:00 95.255 kg [facility] Oxygen saturation in Arterial blood by Pulse oximetry 2021-05-26 01:44:00 98 /min [facility] BP Systolic 2025-05-14 13:13:00 134 mm[Hg] Step hen F Judson BP Diastolic 2025-05-14 13:13:00 89 mm[Hg] Phil phen F Judson Weight Measured 2025-05-14 13:13:00 242.60 pounds Luis M F Judson Height Measured 2025-05-14 13:13:00 65.50 inches Luis M F Judson Body Temperature 2025-05-14 13:13:00 97.50 degrees Luis M F Judson Heart Rate 2025-05-14 13:13:00 60.00 /min Taya en F Judson Respiratory Rate 2025-05-14 13:13:00 16.00 /min Luis M F Judson BP Systolic 2025-05-12 14:57:00 157 mm[Hg] Step hen F Judson BP Diastolic 2025-05-12 14:57:00 79 mm[Hg] Phil phen F Judson Weight Measured 2025-05-12 14:57:00 240.60 pounds Luis M F Judson Height Measured 2025-05-12 14:57:00 65.50 inches Luis M F Judson Body Temperature 2025-05-12 14:57:00 97.90 degrees Luis M F Judson Heart Rate 2025-05-12 14:57:00 66.00 /min Taya en F Judson Respiratory Rate 2025-05-12 14:57:00 18.00 /min Luis M F Judson BP Systolic 2025-03-13 11:28:00 142 mm[Hg] Step hen F Judson BP Diastolic 2025-03-13 11:28:00 95 mm[Hg] Phil phen F Judson Weight Measured 2025-03-13 11:28:00 232.00 pounds Luis M F Judson Height Measured 2025-03-13 11:28:00 65.50 inches Luis M F Judson Body Temperature 2025-03-13 11:28:00 98.40 degrees Luis M F Judson Heart Rate 2025-03-13 11:28:00 77.00 /min Taya en F Judson Respiratory Rate 2025-03-13 11:28:00 14.00 /min Luis M F Judson BP Systolic 2025-03-06 13:49:00 137 mm[Hg] Step hen F Judson BP Diastolic 2025-03-06 13:49:00 88 mm[Hg] Phil phen F Judson Weight Measured 2025-03-06 13:49:00 230.40 pounds Luis M F Judson Height Measured 2025-03-06 13:49:00 65.50 inches Luis M F Judson Body Temperature 2025-03-06 13:49:00 98.20 degrees Luis M F Judson Heart Rate 2025-03-06 13:49:00 67.00 /min Taya en F Judson Respiratory Rate 2025-03-06 13:49:00 Luis M F Judson BP Systolic 2025-02-20 14:54:00 137 mm[Hg] Step hen F Judson BP Diastolic 2025-02-20 14:54:00 86 mm[Hg] Phil phen F Judson Weight Measured 2025-02-20 14:54:00 229.40 pounds Luis M F Judson Height Measured 2025-02-20 14:54:00 65.50 inches Luis M F Judson Body Temperature 2025-02-20 14:54:00 97.80 degrees Luis M F Judson Heart Rate 2025-02-20 14:54:00 71.00 /min Taya en F Judson Respiratory Rate 2025-02-20 14:54:00 16.00 /min Luis M F Judson BP Systolic 2025-02-12 16:04:00 157 mm[Hg] Step hen F Judson BP Diastolic 2025-02-12 16:04:00 91 mm[Hg] Phil phen F Judson Weight Measured 2025-02-12 16:04:00 229.60 pounds Luis M F Judson Height Measured 2025-02-12 16:04:00 65.50 inches Luis M F Judson Body Temperature 2025-02-12 16:04:00 98.20 degrees Luis M F Judson Heart Rate 2025-02-12 16:04:00 61.00 /min Taya en F Judson Respiratory Rate 2025-02-12 16:04:00 18.00 /min Luis M F Judson BP Systolic 2025-01-20 17:02:00 147 mm[Hg] Step hen F Judson BP Diastolic 2025-01-20 17:02:00 98 mm[Hg] Phil phen F Judson Weight Measured 2025-01-20 17:02:00 224.60 pounds Luis M F Judson Height Measured 2025-01-20 17:02:00 65.50 inches Luis M F Judson Body Temperature 2025-01-20 17:02:00 98.30 degrees Luis M F Judson Heart Rate 2025-01-20 17:02:00 72.00 /min Taya en F Judson Respiratory Rate 2025-01-20 17:02:00 18.00 /min Luis M F Judson BP Systolic 2025-01-08 16:48:00 146 mm[Hg] Step hen F Judson BP Diastolic 2025-01-08 16:48:00 96 mm[Hg] Phil phen F Judson Weight Measured 2025-01-08 16:48:00 226.80 pounds Luis M F Judson Height Measured 2025-01-08 16:48:00 65.50 inches Luis M F Judson Body Temperature 2025-01-08 16:48:00 97.40 degrees Luis M F Judson Heart Rate 2025-01-08 16:48:00 63.00 /min Taya en F Judson Respiratory Rate 2025-01-08 16:48:00 16.00 /min Luis M F Judson BP Systolic 2024-11-19 13:17:00 128 mm[Hg] Step hen F Judson BP Diastolic 2024-11-19 13:17:00 83 mm[Hg] Phil phen F Judson Weight Measured 2024-11-19 13:17:00 219.20 pounds Luis M F Judson Height Measured 2024-11-19 13:17:00 65.50 inches Luis M F Judson Body Temperature 2024-11-19 13:17:00 97.90 degrees Luis M F Judson Heart Rate 2024-11-19 13:17:00 77.00 /min Taya en F Judson Respiratory Rate 2024-11-19 13:17:00 18.00 /min Luis M F Judson BP Systolic 2024-11-03 13:55:00 154 mm[Hg] Step hen F Judson BP Diastolic 2024-11-03 13:55:00 104 mm[Hg] Phil phen F Judson Weight Measured 2024-11-03 13:55:00 218.40 pounds Luis M F Judson Height Measured 2024-11-03 13:55:00 65.50 inches Luis M F Judson Body Temperature 2024-11-03 13:55:00 98.60 degrees Luis M F Judson Heart Rate 2024-11-03 13:55:00 93.00 /min Taya en F Judson Respiratory Rate 2024-11-03 13:55:00 16.00 /min Luis M F Judson BP Systolic 2024-08-27 13:12:00 129 mm[Hg] Step [...] Roper BP Systolic 2021-08-26 13:24:00 144 mm[Hg] Sp Roper BP Diastolic 2021-08-26 13:24:00 83 mm[Hg] Phil Roper Weight Measured 2021-08-26 13:24:00 224.20 pounds [...] FOR GROUP A 2023-10-03 13:12:00 Marlo Brown [facility] XR CHEST 2 VW 2023-10-03 13:00:37 Marlo Brown [facility] RAPID INFLUENZA A/B 2023-10-03 12:30:00 Marlo Brown [facility] COVID-19 (ID NOW RAPID TESTING) 2023-10-03 12:30:00 Marlo Brown [facility] CONSENT/REFUSAL FOR DIAGNOSIS AND TREATMENT 2023-10-03 12:14:25 Doctor Unassigned, [place] [facility] COMP. METABOLIC PANEL ([id number]) 2023-06-01 03:01:00 Collins Fair [facility] CBC WITH DIFF 2023-06-01 03:01:00 Collins Fair [facility] N-TERMINAL PRO-BNP 2023-06-01 03:01:00 Singer Collins [facility] NOTICE OF PRIVACY PRACTICES 2023-06-01 02:33:56 Doctor Unassigned, [place] [facility] CONSENT/REFUSAL FOR DIAGNOSIS AND TREATMENT 2023-06-01 02:33:27 Doctor Unassigned, [place] [facility] CONSENT/REFUSAL FOR DIAGNOSIS AND TREATMENT 2023-01-26 01:35:40 Doctor Unassigned, [place] [facility] COVID-19 (ID NOW RAPID TESTING) 2021-05-26 02:08:00 Lydia Kaur [facility] XR CHEST 2 VW 2021-05-26 02:05:49 Lydia Kaur [facility] NOTICE OF PRIVACY PRACTICES 2021-05-26 01:37:54 Doctor Unassigned, [place] [facility] CONSENT/REFUSAL FOR DIAGNOSIS AND TREATMENT 2021-05-26 01:37:31 Doctor Unassigned, [place] [facility] Encounters Start Date/Time End Date/Time Encounter Type Admission Type Attending Critical [facility] Care Facility Care Department Encounter ID Source 2021-08-15 14:56:18 Emergency [facility] [id number] [facility] 2025-05-28 14:39:28 2025-05-28 14:39:28 Outpatient [facility] [id number] Luis M Roper 2025-05-14 13:10:18 2025-05-14 13:10:18 Outpatient [facility] [id number] Luis M Carroll Judson 2025-05-14 00:00:00 2025-05-14 00:00:00 Outpatient Visit [facility] [id number] Luis M Roper 2025-05-13 13:00:50 2025-05-13 13:00:50 Outpatient [facility] [id number] Luis M Roper 2025-05-12 14:53:27 2025-05-12 14:53:27 Outpatient [facility] [id number] Luis M Roper 2025-05-12 00:00:00 2025-05-12 00:00:00 Outpatient Visit [facility] [id number] Luis M Roper 2025-03-13 11:24:46 2025-03-13 11:24:46 Outpatient [facility] [id number] Luis M Roper 2025-03-13 00:00:00 2025-03-13 00:00:00 Outpatient Visit [facility] [id number] Luis M Roper 2025-03-06 13:42:04 2025-03-06 13:42:04 Outpatient S[facility] [id number] Luis M Roper 2025-03-06 00:00:00 2025-03-06 00:00:00 Outpatient Visit [facility] [id number] Luis M Roper 2025-02-20 14:47:11 2025-02-20 14:47:11 Outpatient [facility] [id number] Luis M Roper 2025-02-20 00:00:00 2025-02-20 00:00:00 Outpatient Visit [facility] [id number] Luis M Roper 2025-02-12 15:57:09 2025-02-12 15:57:09 Outpatient [facility] [id number] Luis M Roper 2025-02-12 00:00:00 2025-02-12 00:00:00 Outpatient Visit [facility] [id number] Luis M Roper 2025-01-20 16:57:03 2025-01-20 16:57:03 Outpatient [facility] [id number] Luis M Roper 2025-01-20 00:00:00 2025-01-20 00:00:00 Outpatient Visit [facility] [id number] Luis M Roper 2025-01-08 16:40:19 2025-01-08 16:40:19 Outpatient [facility]FA [facility] [id number] Luis M Roper 2025-01-08 00:00:00 2025-01-08 00:00:00 Outpatient Visit [facility] [id number] Luis M Roper 2024-11-19 13:12:45 2024-11-19 13:12:45 Outpatient [facility] [id number] Luis M Roper 2024-11-19 00:00:00 2024-11-19 00:00:00 Outpatient Visit [facility] [id number] Luis M Roper 2024-11-03 13:48:30 2024-11-03 13:48:30 Outpatient SFA [facility] [id number] Luis M Roper 2024-11-03 00:00:00 2024-11-03 00:00:00 Outpatient Visit [facility] [id number] Luis M Roper 2024-08-27 13:07:48 2024-08-27 13:07:48 Outpatient [facility] [id number] Luis M Roper 2024-08-27 00:00:00 2024-08-27 00:00:00 Outpatient Visit [facility] [id number] Luis M Roper 2024-08-05 13:47:33 2024-08-05 13:47:33 Outpatient [facility] [id number] Luis M Roper 2024-08-05 00:00:00 2024-08-05 00:00:00 Outpatient Visit [facility] [id number] Luis M Roper 2024-07-28 11:16:13 2024-07-28 11:16:13 Outpatient [facility] [id number] Luis M Roper 2024-07-28 00:00:00 2024-07-28 00:00:00 Outpatient Visit [facility] [id number] Luis M Roper 2024-06-05 00:00:00 2024-06-05 00:00:00 Outpatient Visit [facility] [id number] Luis M Roper 2024-05-08 17:23:48 2024-05-08 17:23:48 Outpatient [facility] [id number] Luis M Roper 2024-05-08 00:00:00 2024-05-08 00:00:00 Outpatient Visit [facility] [id number] Luis M Roper 2024-04-10 17:42:43 2024-04-10 17:42:43 Outpatient [facility] [id number] Luis M Roper 2024-03-13 15:46:57 2024-03-13 15:46:57 Outpatient [facility] [id number] Luis M Roper 2024-03-13 00:00:00 2024-03-13 00:00:00 Outpatient Visit [facility] [id number] Luis M Roper 2023-11-29 08:07:41 2023-11-29 08:07:41 Outpatient [facility] [id number] Luis M Carroll Judson 2023-11-26 15:15:26 2023-11-26 15:15:26 Outpatient [facility] [id number] Luis M Roper 2023-10-24 15:51:50 2023-10-24 15:51:50 Outpatient [facility] [id number] Luis M Carroll Judson 2023-10-03 06:31:00 2023-10-03 07:54:00 Emergency X QUEENIE CHAVES [facility] ERT [id number] [facility] 2023-10-03 06:31:00 2023-10-03 07:54:00 Emergency Marlo Brown Donnell [facility] [id number] [facility] 2023-05-31 21:46:00 2023-05-31 23:58:00 Emergency X COLLINS FAIR [facility] ERT [id number] [facility] 2023-05-31 21:46:00 2023-05-31 23:58:00 Emergency Collins Fair [facility] [id number] [facility] 2023-05-29 08:01:40 2023-05-29 08:01:40 Outpatient [facility] [id number] Luis M Roper 2023-01-25 20:48:00 2023-01-25 22:28:00 Emergency Lester BARNES [facility] ERT [id number] [facility] 2023-01-25 20:48:00 2023-01-25 22:28:00 Emergency Keysha Barnes [facility] [id number] [facility] 2023-01-25 00:00:00 2023-01-25 00:00:00 Nurse Triage Leonila Long [facility] [id number] [facility] 2021-05-25 20:47:00 2021-05-25 22:37:00 Emergency Lydia Kaur [facility] [id number] [facility] 2021-05-25 00:00:00 2021-05-25 00:00:00 Orders Only Doctor Unassigned, [place] [facility] [id number] [facility] 2020-05-15 00:00:00 2020-05-15 00:00:00 Patient Secure Msg Doctor Unassigned, [place] [facility] [id number] [facility] 2020-05-14 08:05:18 2020-05-14 09:26:46 Laboratory Only Lab, [facility] 1.114 350.1.13.10 4.2.7.2.686 [id number] [facility] 2020-05-14 08:20:00 2020-05-14 08:20:00 Outpatient R [facility] [id number] [facility] 2020-04-14 00:00:00 2020-04-14 00:00:00 Telephone MarthaShaeh [facility] [id number] 350.1.13.10 4.2.7.2.686 [id number] [facility] 2020-04-13 17:27:34 2020-04-13 17:47:34 Laboratory Only Lab, [facility] 1.84.114 350.1.13.10 4.2.7.2.686 [id number] [facility] 2020-04-13 17:40:00 2020-04-13 17:40:00 Outpatient R [facility] [id number] [facility] Results Test Description Test Time Test Comments Results Result Co mments Source Luis M RoperCOMPREHENSIVE METABOLIC [id number] 00:00:00* Test Item Value Reference Range Interpretation Comme nts GLUCOSE (test code = 2345-7) 76 mg/dL UREA NITROGEN (BUN) (test code = 3094-0) 17 mg/dL CREATININE (test code = 2160-0) 0.89 mg/dL EGFR (test code = 87998-9) 102 mL/min/1.73m2 BUN/CREATININE RATIO (test code = 3097-3) SEE NOTE: (calc) SODIUM (test code = 2951-2) 139 mmol/L POTASSIUM (test code = 2823-3) 4.7 mmol/L CHLORIDE (test code = 2075-0) 104 mmol/L CARBON DIOXIDE (test code = 2027-9) 29 mmol/L CALCIUM (test code = 27759-3) 9.5 mg/dL PROTEIN, TOTAL (test code = 2885-2) 7.3 g/dL ALBUMIN (test code = 1751-7) 4.3 g/dL GLOBULIN (test code = 65506-3) 3.0 g/dL(calc) ALBUMIN/GLOBULIN RATIO (test code = 1759-0) 1.4 (calc) BILIRUBIN, TOTAL (test code = 1975-2) 0.4 mg/dL ALKALINE PHOSPHATASE (test code = 6768-6) 65 U/L AST (test code = 1920-8) 14 U/L ALT (test code = 1742-6) 30 U/L Luis M RoperTSH W/REFLEX TO [id number] 00:00:00* Test Item Value Reference Range Interpretation Comme nts TSH W/REFLEX TO FT4 (test co de = 3016-3) 0.59 mIU/L Luis M RoperCBC (INCLUDES DIFF/PLT)2025-03-07 00:00:00* Test Item Value Reference Range Interpretation Comme nts WHITE BLOOD CELL COUNT (test code = 6690-2) 11.1 Thousand/uL RED BLOOD CELL COUNT (test code = 789-8) 5.09 Million/uL HEMOGLOBIN (test code = 718-7) 15.8 g/dL HEMATOCRIT (test code = 4544-3) 47.2 % MCV (test code = 787-2) 92.7 fL MCH (test code = 785-6) 31.0 pg MCHC (test code = 786-4) 33.5 g/dL RDW (test code = 788-0) 12.0 % PLATELET COUNT (test code = 777-3) 340 Thousand/uL MPV (test code = 776-5) 11.0 fL ABSOLUTE NEUTROPHILS (test code = 751-8) 7304 cells/uL ABSOLUTE BAND NEUTROPHILS (test code = 83789-9) DNR cells/uL ABSOLUTE METAMYELOCYTES (test code = 70312-1) DNR cells/uL ABSOLUTE MYELOCYTES (test code = 54540-1) DNR cells/uL ABSOLUTE PROMYELOCYTES (test code = 31468-7) DNR cells/uL ABSOLUTE LYMPHOCYTES (test code = 731-0) 2731 cells/uL ABSOLUTE MONOCYTES (test code = 742-7) 966 cells/uL ABSOLUTE EOSINOPHILS (test code = 711-2) 67 cells/uL ABSOLUTE BASOPHILS (test code = 704-7) 33 cells/uL ABSOLUTE BLASTS (test code = 36434-8) DNR cells/uL ABSOLUTE NUCLEATED RBC (test code = 70279-1) DNR cells/uL NEUTROPHILS (test code = 770-8) 65.8 % BAND NEUTROPHILS (test code = 764-1) DNR % METAMYELOCYTES (test code = 740-1) DNR % MYELOCYTES (test code = 749-2) DNR % PROMYELOCYTES (test code = 783-1) DNR % LYMPHOCYTES (test code = 736-9) 24.6 % REACTIVE LYMPHOCYTES (test code = 79039-6) DNR % MONOCYTES (test code = 5905-5) 8.7 % EOSINOPHILS (test code = 713-8) 0.6 % BASOPHILS (test code = 706-2) 0.3 % BLASTS (test code = 709-6) DNR % NUCLEATED RBC (test code = 50443-3) DNR /100WBC COMMENT(S) (test code = 8251-1) DNR Luis M F JudsonCOMPREHENSIVE METABOLIC [id number] 00:00:00* Test Item Value Reference Range Interpretation Comme nts GLUCOSE (test code = 2345-7) 76 mg/dL UREA NITROGEN (BUN) (test code = 3094-0) 17 mg/dL CREATININE (test code = 2160-0) 0.89 mg/dL EGFR (test code = 97638-4) 102 mL/min/1.73m2 BUN/CREATININE RATIO (test code = 3097-3) SEE NOTE: (calc) SODIUM (test code = 2951-2) 139 mmol/L POTASSIUM (test code = 2823-3) 4.7 mmol/L CHLORIDE (test code = 2075-0) 104 mmol/L CARBON DIOXIDE (test code = 2027-9) 29 mmol/L CALCIUM (test code = 34552-1) 9.5 mg/dL PROTEIN, TOTAL (test code = 2885-2) 7.3 g/dL ALBUMIN (test code = 1751-7) 4.3 g/dL GLOBULIN (test code = 32227-8) 3.0 g/dL(calc) ALBUMIN/GLOBULIN RATIO (test code = 1759-0) 1.4 (calc) BILIRUBIN, TOTAL (test code = 1975-2) 0.4 mg/dL ALKALINE PHOSPHATASE (test code = 6768-6) 65 U/L AST (test code = 1920-8) 14 U/L ALT (test code = 1742-6) 30 U/L Luis M FullerH W/REFLEX TO [id number] 00:00:00* Test Item Value Reference Range Interpretation Comme nts TSH W/REFLEX TO FT4 (test co de = 3016-3) 0.59 mIU/L Luis M RoperCBC (INCLUDES DIFF/PLT)2025-03-07 00:00:00* Test Item Value Reference Range Interpretation Comme nts WHITE BLOOD CELL COUNT (test code = 6690-2) 11.1 Thousand/uL RED BLOOD CELL COUNT (test code = 789-8) 5.09 Million/uL HEMOGLOBIN (test code = 718-7) 15.8 g/dL HEMATOCRIT (test code = 4544-3) 47.2 % MCV (test code = 787-2) 92.7 fL MCH (test code = 785-6) 31.0 pg MCHC (test code = 786-4) 33.5 g/dL RDW (test code = 788-0) 12.0 % PLATELET COUNT (test code = 777-3) 340 Thousand/uL MPV (test code = 776-5) 11.0 fL ABSOLUTE NEUTROPHILS (test code = 751-8) 7304 cells/uL ABSOLUTE BAND NEUTROPHILS (test code = 65005-1) DNR cells/uL ABSOLUTE METAMYELOCYTES (test code = 28697-3) DNR cells/uL ABSOLUTE MYELOCYTES (test code = 56983-2) DNR cells/uL ABSOLUTE PROMYELOCYTES (test code = 67421-8) DNR cells/uL ABSOLUTE LYMPHOCYTES (test code = 731-0) 2731 cells/uL ABSOLUTE MONOCYTES (test code = 742-7) 966 cells/uL ABSOLUTE EOSINOPHILS (test code = 711-2) 67 cells/uL ABSOLUTE BASOPHILS (test code = 704-7) 33 cells/uL ABSOLUTE BLASTS (test code = 45722-5) DNR cells/uL ABSOLUTE NUCLEATED RBC (test code = 41573-0) DNR cells/uL NEUTROPHILS (test code = 770-8) 65.8 % BAND NEUTROPHILS (test code = 764-1) DNR % METAMYELOCYTES (test code = 740-1) DNR % MYELOCYTES (test code = 749-2) DNR % PROMYELOCYTES (test code = 783-1) DNR % LYMPHOCYTES (test code = 736-9) 24.6 % REACTIVE LYMPHOCYTES (test code = 02840-9) DNR % MONOCYTES (test code = 5905-5) 8.7 % EOSINOPHILS (test code = 713-8) 0.6 % BASOPHILS (test code = 706-2) 0.3 % BLASTS (test code = 709-6) DNR % NUCLEATED RBC (test code = 52687-6) DNR /100WBC COMMENT(S) (test code = 8251-1) DNR Luis M RoperCOMPREHENSIVE METABOLIC [id number] 00:00:00* Test Item Value Reference Range Interpretation Comme nts GLUCOSE (test code = 2345-7) 76 mg/dL UREA NITROGEN (BUN) (test code = 3094-0) 17 mg/dL CREATININE (test code = 2160-0) 0.89 mg/dL EGFR (test code = 49904-9) 102 mL/min/1.73m2 BUN/CREATININE RATIO (test code = 3097-3) SEE NOTE: (calc) SODIUM (test code = 2951-2) 139 mmol/L POTASSIUM (test code = 2823-3) 4.7 mmol/L CHLORIDE (test code = 2075-0) 104 mmol/L CARBON DIOXIDE (test code = 8-9) 29 mmol/L CALCIUM (test code = 51733-6) 9.5 mg/dL PROTEIN, TOTAL (test code = 2885-2) 7.3 g/dL ALBUMIN (test code = 1751-7) 4.3 g/dL GLOBULIN (test code = 30653-0) 3.0 g/dL(calc) ALBUMIN/GLOBULIN RATIO (test code = 1759-0) 1.4 (calc) BILIRUBIN, TOTAL (test code = 1975-2) 0.4 mg/dL ALKALINE PHOSPHATASE (test code = 6768-6) 65 U/L AST (test code = 1920-8) 14 U/L ALT (test code = 1742-6) 30 U/L Luis M RoperTSH W/REFLEX TO [id number] 00:00:00* Test Item Value Reference Range Interpretation Comme nts TSH W/REFLEX TO FT4 (test co de = 3016-3) 0.59 mIU/L Luis M Carroll AustinHEMOGLOBIN [id number] 00:00:00* Test Item Value Reference Range Interpretation Comme nts HEMOGLOBIN A1c (test code = 4548-4) 5.7 % Luis M Carroll AustinHEMOGLOBIN [id number] 00:00:00* Test Item Value Reference Range Interpretation Comme nts HEMOGLOBIN A1c (test code = 4548-4) 5.7 % Luis M Carroll AustinHEMOGLOBIN [id number] 00:00:00* Test Item Value Reference Range Interpretation Comme nts HEMOGLOBIN A1c (test code = 4548-4) 5.7 % Luis M Carroll AustinHEMOGLOBIN [id number] 00:00:00* Test Item Value Reference Range Interpretation Comme nts HEMOGLOBIN A1c (test code = 4548-4) 5.7 % Luis M Carroll AustinHEMOGLOBIN [id number] 00:00:00* Test Item Value Reference Range Interpretation Comme nts HEMOGLOBIN A1c (test code = 4548-4) 5.7 % Luis M Carroll AustinHEMOGLOBIN [id number] 00:00:00* Test Item Value Reference Range Interpretation Comme nts HEMOGLOBIN A1c (test code = 4548-4) 5.7 % Luis M Carroll AustinLIPID [id number] 00:00:00* Test Item Value Reference Range Interpretation Comme nts CHOLESTEROL (test code = 2210) 166 MG/DL TRIGLYCERIDES (test code = 2232) 184 MG/DL HDL CHOLESTEROL (test code = 2220) 42 MG/DL CALC LDL CHOL (test code = 2237) 96 MG/DL RISK RATIO LDL/HDL (test cod e = 2238) 2.29 RATIO Luis M Carroll AustinCOMPREHENSIVE METABOLIC [id number] 00:00:00* Test Item Value Reference Range Interpretation Comme nts GLUCOSE (test code = 2217) 87 MG/DL BUN (test code = 2208) 14 MG/DL CREATININE (test code = 2214) 1.04 MG/DL eGFR (2020 CKD-EPI) (test co de = 10420) 86 ML/MIN/1.73 CALC BUN/CREAT (test code = 2235) 13 RATIO SODIUM (test code = 2231) 138 MEQ/L POTASSIUM (test code = 2228) 4.5 MEQ/L CHLORIDE (test code = 2215) 100 MEQ/L CARBON DIOXIDE (test code = 2206) 25 MEQ/L CALCIUM (test code = 2209) 9.4 MG/DL PROTEIN, TOTAL (test code = 2229) 7.3 G/DL ALBUMIN (test code = 2201) 4.5 G/DL CALC GLOBULIN (test code = 2240) 2.8 G/DL CALC A/G RATIO (test code = 2234) 1.6 RATIO BILIRUBIN, TOTAL (test code = 2207) 0.3 MG/DL ALKALINE PHOSPHATASE (test code = 2204) 83 U/L AST (test code = 2218) 18 U/L ALT (test code = 2219) 23 U/L Luis M Carroll AustinLIPID [id number] 00:00:00* Test Item Value Reference Range Interpretation Comme nts CHOLESTEROL (test code = 2210) 166 MG/DL TRIGLYCERIDES (test code = 2232) 184 MG/DL HDL CHOLESTEROL (test code = 2220) 42 MG/DL CALC LDL CHOL (test code = 2237) 96 MG/DL RISK RATIO LDL/HDL (test cod e = 2238) 2.29 RATIO Luis M Carroll AustinCOMPREHENSIVE METABOLIC [id number] 00:00:00* Test Item Value Reference Range Interpretation Comme nts GLUCOSE (test code = 2217) 87 MG/DL BUN (test code = 2208) 14 MG/DL CREATININE (test code = 2214) 1.04 MG/DL eGFR (2020 CKD-EPI) (test co de = 47466) 86 ML/MIN/1.73 CALC BUN/CREAT (test code = 2235) 13 RATIO SODIUM (test code = 2231) 138 MEQ/L POTASSIUM (test code = 2228) 4.5 MEQ/L CHLORIDE (test code = 2215) 100 MEQ/L CARBON DIOXIDE (test code = 2206) 25 MEQ/L CALCIUM (test code = 2209) 9.4 MG/DL PROTEIN, TOTAL (test code = 2229) 7.3 G/DL ALBUMIN (test code = 2201) 4.5 G/DL CALC GLOBULIN (test code = 2240) 2.8 G/DL CALC A/G RATIO (test code = 2234) 1.6 RATIO BILIRUBIN, TOTAL (test code = 2207) 0.3 MG/DL ALKALINE PHOSPHATASE (test code = 2204) 83 U/L AST (test code = 2218) 18 U/L ALT (test code = 2219) 23 U/L Luis M Carroll AustinLIPID [id number] 00:00:00* Test Item Value Reference Range Interpretation Comme nts CHOLESTEROL (test code = 2210) 166 MG/DL TRIGLYCERIDES (test code = 2232) 184 MG/DL HDL CHOLESTEROL (test code = 2220) 42 MG/DL CALC LDL CHOL (test code = 2237) 96 MG/DL RISK RATIO LDL/HDL (test cod e = 2238) 2.29 RATIO Luis M RoperCOMPREHENSIVE METABOLIC [id number] 00:00:00* Test Item Value Reference Range Interpretation Comme nts GLUCOSE (test code = 2217) 87 MG/DL BUN (test code = 2208) 14 MG/DL CREATININE (test code = 2214) 1.04 MG/DL eGFR (2020 CKD-EPI) (test co de = 38965) 86 ML/MIN/1.73 CALC BUN/CREAT (test code = 2235) 13 RATIO SODIUM (test code = 2231) 138 MEQ/L POTASSIUM (test code = 2228) 4.5 MEQ/L CHLORIDE (test code = 2215) 100 MEQ/L CARBON DIOXIDE (test code = 2206) 25 MEQ/L CALCIUM (test code = 2209) 9.4 MG/DL PROTEIN, TOTAL (test code = 2229) 7.3 G/DL ALBUMIN (test code = 2201) 4.5 G/DL CALC GLOBULIN (test code = 2240) 2.8 G/DL CALC A/G RATIO (test code = 2234) 1.6 RATIO BILIRUBIN, TOTAL (test code = 2207) 0.3 MG/DL ALKALINE PHOSPHATASE (test code = 2204) 83 U/L AST (test code = 2218) 18 U/L ALT (test code = 2219) 23 U/L Luis M Carroll AustinLIPID [id number] 00:00:00* Test Item Value Reference Range Interpretation Comme nts CHOLESTEROL (test code = 2210) 166 MG/DL TRIGLYCERIDES (test code = 2232) 184 MG/DL HDL CHOLESTEROL (test code = 2220) 42 MG/DL CALC LDL CHOL (test code = 2237) 96 MG/DL RISK RATIO LDL/HDL (test cod e = 2238) 2.29 RATIO Luis M RoperCOMPREHENSIVE METABOLIC [id number] 00:00:00* Test Item Value Reference Range Interpretation Comme nts GLUCOSE (test code = 2217) 87 MG/DL BUN (test code = 2208) 14 MG/DL CREATININE (test code = 2214) 1.04 MG/DL eGFR (2020 CKD-EPI) (test co de = 67806) 86 ML/MIN/1.73 CALC BUN/CREAT (test code = 2235) 13 RATIO SODIUM (test code = 2231) 138 MEQ/L POTASSIUM (test code = 2228) 4.5 MEQ/L CHLORIDE (test code = 2215) 100 MEQ/L CARBON DIOXIDE (test code = 2206) 25 MEQ/L CALCIUM (test code = 2209) 9.4 MG/DL PROTEIN, TOTAL (test code = 2229) 7.3 G/DL ALBUMIN (test code = 2201) 4.5 G/DL CALC GLOBULIN (test code = 2240) 2.8 G/DL CALC A/G RATIO (test code = 2234) 1.6 RATIO BILIRUBIN, TOTAL (test code = 2207) 0.3 MG/DL ALKALINE PHOSPHATASE (test code = 2204) 83 U/L AST (test code = 2218) 18 U/L ALT (test code = 2219) 23 U/L Luis M Carroll AustinLIPID [id number] 00:00:00* Test Item Value Reference Range Interpretation Comme nts CHOLESTEROL (test code = 2210) 166 MG/DL TRIGLYCERIDES (test code = 2232) 184 MG/DL HDL CHOLESTEROL (test code = 2220) 42 MG/DL CALC LDL CHOL (test code = 2237) 96 MG/DL RISK RATIO LDL/HDL (test cod e = 2238) 2.29 RATIO Luis M RoperCOMPREHENSIVE METABOLIC [id number] 00:00:00* Test Item Value Reference Range Interpretation Comme nts GLUCOSE (test code = 2217) 87 MG/DL BUN (test code = 2208) 14 MG/DL CREATININE (test code = 2214) 1.04 MG/DL eGFR (2020 CKD-EPI) (test co de = 07631) 86 ML/MIN/1.73 CALC BUN/CREAT (test code = 2235) 13 RATIO SODIUM (test code = 2231) 138 MEQ/L POTASSIUM (test code = 2228) 4.5 MEQ/L CHLORIDE (test code = 2215) 100 MEQ/L CARBON DIOXIDE (test code = 2206) 25 MEQ/L CALCIUM (test code = 2209) 9.4 MG/DL PROTEIN, TOTAL (test code = 2229) 7.3 G/DL ALBUMIN (test code = 2201) 4.5 G/DL CALC GLOBULIN (test code = 2240) 2.8 G/DL CALC A/G RATIO (test code = 2234) 1.6 RATIO BILIRUBIN, TOTAL (test code = 2207) 0.3 MG/DL ALKALINE PHOSPHATASE (test code = 2204) 83 U/L AST (test code = 2218) 18 U/L ALT (test code = 2219) 23 U/L Luis M Carroll AustinLIPID [id number] 00:00:00* Test Item Value Reference Range Interpretation Comme nts CHOLESTEROL (test code = 2210) 166 MG/DL TRIGLYCERIDES (test code = 2232) 184 MG/DL HDL CHOLESTEROL (test code = 2220) 42 MG/DL CALC LDL CHOL (test code = 2237) 96 MG/DL RISK RATIO LDL/HDL (test cod e = 2238) 2.29 RATIO Luis M RoperCOMPREHENSIVE METABOLIC [id number] 00:00:00* Test Item Value Reference Range Interpretation Comme nts GLUCOSE (test code = 2217) 87 MG/DL BUN (test code = 2208) 14 MG/DL CREATININE (test code = 2214) 1.04 MG/DL eGFR (2020 CKD-EPI) (test co de = 34728) 86 ML/MIN/1.73 CALC BUN/CREAT (test code = 2235) 13 RATIO SODIUM (test code = 2231) 138 MEQ/L POTASSIUM (test code = 2228) 4.5 MEQ/L CHLORIDE (test code = 2215) 100 MEQ/L CARBON DIOXIDE (test code = 2206) 25 MEQ/L CALCIUM (test code = 2209) 9.4 MG/DL PROTEIN, TOTAL (test code = 2229) 7.3 G/DL ALBUMIN (test code = 2201) 4.5 G/DL CALC GLOBULIN (test code = 2240) 2.8 G/DL CALC A/G RATIO (test code = 2234) 1.6 RATIO BILIRUBIN, TOTAL (test code = 2207) 0.3 MG/DL ALKALINE PHOSPHATASE (test code = 2204) 83 U/L AST (test code = 2218) 18 U/L ALT (test code = 2219) 23 U/L LuisM Carroll AustinLIPID [id number] 00:00:00* Test Item Value Reference Range Interpretation Comme nts CHOLESTEROL (test code = 2210) 166 MG/DL TRIGLYCERIDES (test code = 2232) 184 MG/DL HDL CHOLESTEROL (test code = 2220) 42 MG/DL CALC LDL CHOL (test code = 2237) 96 MG/DL RISK RATIO LDL/HDL (test cod e = 2238) 2.29 RATIO Luis M RoperCOMPREHENSIVE METABOLIC [id number] 00:00:00* Test Item Value Reference Range Interpretation Comme nts GLUCOSE (test code = 2217) 87 MG/DL BUN (test code = 2208) 14 MG/DL CREATININE (test code = 2214) 1.04 MG/DL eGFR (2020 CKD-EPI) (test co de = 40669) 86 ML/MIN/1.73 CALC BUN/CREAT (test code = 2235) 13 RATIO SODIUM (test code = 2231) 138 MEQ/L POTASSIUM (test code = 2228) 4.5 MEQ/L CHLORIDE (test code = 2215) 100 MEQ/L CARBON DIOXIDE (test code = 2206) 25 MEQ/L CALCIUM (test code = 2209) 9.4 MG/DL PROTEIN, TOTAL (test code = 2229) 7.3 G/DL ALBUMIN (test code = 2201) 4.5 G/DL CALC GLOBULIN (test code = 2240) 2.8 G/DL CALC A/G RATIO (test code = 2234) 1.6 RATIO BILIRUBIN, TOTAL (test code = 2207) 0.3 MG/DL ALKALINE PHOSPHATASE (test code = 2204) 83 U/L AST (test code = 2218) 18 U/L ALT (test code = 2219) 23 U/L Luis M Carroll AustinLIPID [id number] 00:00:00* Test Item Value Reference Range Interpretation Comme nts CHOLESTEROL (test code = 2210) 166 MG/DL TRIGLYCERIDES (test code = 2232) 184 MG/DL HDL CHOLESTEROL (test code = 2220) 42 MG/DL CALC LDL CHOL (test code = 2237) 96 MG/DL RISK RATIO LDL/HDL (test cod e = 2238) 2.29 RATIO Luis M RoperCOMPREHENSIVE METABOLIC [id number] 00:00:00* Test Item Value Reference Range Interpretation Comme nts GLUCOSE (test code = 2217) 87 MG/DL BUN (test code = 2208) 14 MG/DL CREATININE (test code = 2214) 1.04 MG/DL eGFR (2020 CKD-EPI) (test co de = 10617) 86 ML/MIN/1.73 CALC BUN/CREAT (test code = 2235) 13 RATIO SODIUM (test code = 2231) 138 MEQ/L POTASSIUM (test code = 2228) 4.5 MEQ/L CHLORIDE (test code = 2215) 100 MEQ/L CARBON DIOXIDE (test code = 2206) 25 MEQ/L CALCIUM (test code = 2209) 9.4 MG/DL PROTEIN, TOTAL (test code = 2229) 7.3 G/DL ALBUMIN (test code = 2201) 4.5 G/DL CALC GLOBULIN (test code = 2240) 2.8 G/DL CALC A/G RATIO (test code = 2234) 1.6 RATIO BILIRUBIN, TOTAL (test code = 2207) 0.3 MG/DL ALKALINE PHOSPHATASE (test code = 2204) 83 U/L AST (test code = 2218) 18 U/L ALT (test code = 2219) 23 U/L Luis M Carroll AustinLIPID [id number] 00:00:00* Test Item Value Reference Range Interpretation Comme nts CHOLESTEROL (test code = 2210) 166 MG/DL TRIGLYCERIDES (test code = 2232) 184 MG/DL HDL CHOLESTEROL (test code = 2220) 42 MG/DL CALC LDL CHOL (test code = 2237) 96 MG/DL RISK RATIO LDL/HDL (test cod e = 2238) 2.29 RATIO Luis M RoperCOMPREHENSIVE METABOLIC [id number] 00:00:00* Test Item Value Reference Range Interpretation Comme nts GLUCOSE (test code = 2217) 87 MG/DL BUN (test code = 2208) 14 MG/DL CREATININE (test code = 2214) 1.04 MG/DL eGFR (2020 CKD-EPI) (test co de = 54991) 86 ML/MIN/1.73 CALC BUN/CREAT (test code = 2235) 13 RATIO SODIUM (test code = 2231) 138 MEQ/L POTASSIUM (test code = 2228) 4.5 MEQ/L CHLORIDE (test code = 2215) 100 MEQ/L CARBON DIOXIDE (test code = 2206) 25 MEQ/L CALCIUM (test code = 2209) 9.4 MG/DL PROTEIN, TOTAL (test code = 2229) 7.3 G/DL ALBUMIN (test code = 2201) 4.5 G/DL CALC GLOBULIN (test code = 2240) 2.8 G/DL CALC A/G RATIO (test code = 2234) 1.6 RATIO BILIRUBIN, TOTAL (test code = 2207) 0.3 MG/DL ALKALINE PHOSPHATASE (test code = 2204) 83 U/L AST (test code = 2218) 18 U/L ALT (test code = 2219) 23 U/L Luis M RoperHEMOGLOBIN [id number] 00:00:00* Test Item Value Reference Range Interpretation Comme nts HEMOGLOBIN A1c (test code = 05800) 5.5 % Luis M RoperLIPID [id number] 00:00:00* Test Item Value Reference Range Interpretation Comme nts CHOLESTEROL (test code = 2210) 166 MG/DL TRIGLYCERIDES (test code = 2232) 235 MG/DL HDL CHOLESTEROL (test code = 2220) 45 MG/DL CALC LDL CHOL (test code = 2237) 88 MG/DL RISK RATIO LDL/HDL (test cod e = 2238) 1.96 RATIO Luis M RoperCOMPREHENSIVE METABOLIC [id number] 00:00:00* Test Item Value Reference Range Interpretation Comme nts GLUCOSE (test code = 2217) 108 MG/DL BUN (test code = 2208) 22 MG/DL CREATININE (test code = 2214) 1.18 MG/DL eGFR (2020 CKD-EPI) (test co de = 27941) 74 ML/MIN/1.73 CALC BUN/CREAT (test code = [...] = 2219) 32 U/L Luis M RoperPSA, [id number] 00:00:00* Test Item Value Reference Range Interpretation Comme nts PSA, TOTAL (test code = 2606) 0.60 NG/ML Luis M RoperHEMOGLOBIN [id number] 00:00:00* Test Item Value Reference Range Interpretation Comme nts HEMOGLOBIN A1c (test code = 43087) 5.5 % Luis M RoperLIPID [id number] 00:00:00* Test Item Value Reference Range Interpretation Comme nts CHOLESTEROL (test code = 2210) 166 MG/DL TRIGLYCERIDES (test code = 2232) 235 MG/DL HDL CHOLESTEROL (test code = 2220) 45 MG/DL CALC LDL CHOL (test code = 2237) 88 MG/DL RISK RATIO LDL/HDL (test cod e = 2238) 1.96 RATIO Luis M RoperCOMPREHENSIVE METABOLIC [id number] 00:00:00* Test Item Value Reference Range Interpretation Comme nts GLUCOSE (test code = 221) 108 MG/DL BUN (test code = 220) 22 MG/DL CREATININE (test code = 2214) 1.18 MG/DL eGFR (2020 CKD-EPI) (test co de = 43726) 74 ML/MIN/1.73 CALC BUN/CREAT (test code = 2235) 19 RATIO SODIUM (test code = 223) 141 MEQ/L POTASSIUM (test code = 2228) 4.1 MEQ/L CHLORIDE (test code = 2215) 103 MEQ/L CARBON DIOXIDE (test code = 2206) 24 MEQ/L CALCIUM (test code = 2209) 9.6 MG/DL PROTEIN, TOTAL (test code = 222) 7.2 G/DL ALBUMIN (test code = 2201) 4.5 G/DL CALC GLOBULIN (test code = 2240) 2.7 G/DL CALC A/G RATIO (test code = 2234) 1.7 RATIO BILIRUBIN, TOTAL (test code = 2206) 0.2 MG/DL ALKALINE PHOSPHATASE (test code = 2204) 73 U/L AST (test code = 2218) 23 U/L ALT (test code = 2219) 32 U/L Luis M RoperPSA, [id number] 00:00:00* Test Item Value Reference Range Interpretation Comme nts PSA, TOTAL (test code = 2606) 0.60 NG/ML Luis M RoperHEMOGLOBIN [id number] 00:00:00* Test Item Value Reference Range Interpretation Comme nts HEMOGLOBIN A1c (test code = 80553) 5.5 % Luis M RoperLIPID [id number] 00:00:00* Test Item Value Reference Range Interpretation Comme nts CHOLESTEROL (test code = 2210) 166 MG/DL TRIGLYCERIDES (test code = 2232) 235 MG/DL HDL CHOLESTEROL (test code = 2220) 45 MG/DL CALC LDL CHOL (test code = 2237) 88 MG/DL RISK RATIO LDL/HDL (test cod e = 2238) 1.96 RATIO Luis M RoperCOMPREHENSIVE METABOLIC [id number] 00:00:00* Test Item Value Reference Range Interpretation Comme nts GLUCOSE (test code = 2216) 108 MG/DL BUN (test code = 2208) 22 MG/DL CREATININE (test code = 2214) 1.18 MG/DL eGFR (2020 CKD-EPI) (test co de = 20627) 74 ML/MIN/1.73 CALC BUN/CREAT (test code = [...] = 2219) 32 U/L Luis M RoperPSA, [id number] 00:00:00* Test Item Value Reference Range Interpretation Comme nts PSA, TOTAL (test code = 2606) 0.60 NG/ML Luis M RoperHEMOGLOBIN [id number] 00:00:00* Test Item Value Reference Range Interpretation Comme nts HEMOGLOBIN A1c (test code = 98207) 5.5 % Luis M RoperLIPID [id number] 00:00:00* Test Item Value Reference Range Interpretation Comme nts CHOLESTEROL (test code = 2210) 166 MG/DL TRIGLYCERIDES (test code = 2232) 235 MG/DL HDL CHOLESTEROL (test code = 2220) 45 MG/DL CALC LDL CHOL (test code = 2237) 88 MG/DL RISK RATIO LDL/HDL (test cod e = 2238) 1.96 RATIO Luis M RoperCOMPREHENSIVE METABOLIC [id number] 00:00:00* Test Item Value Reference Range Interpretation Comme nts GLUCOSE (test code = 2217) 108 MG/DL BUN (test code = 2208) 22 MG/DL CREATININE (test code = 2214) 1.18 MG/DL eGFR (2020 CKD-EPI) (test co de = 69025) 74 ML/MIN/1.73 CALC BUN/CREAT (test code = [...] = 2219) 32 U/L Luis M RoperPSA, [id number] 00:00:00* Test Item Value Reference Range Interpretation Comme nts PSA, TOTAL (test code = 2606) 0.60 NG/ML Luis M RoperHEMOGLOBIN [id number] 00:00:00* Test Item Value Reference Range Interpretation Comme nts HEMOGLOBIN A1c (test code = 06883) 5.5 % Luis M RoperLIPID [id number] 00:00:00* Test Item Value Reference Range Interpretation Comme nts CHOLESTEROL (test code = 2210) 166 MG/DL TRIGLYCERIDES (test code = 2232) 235 MG/DL HDL CHOLESTEROL (test code = 2220) 45 MG/DL CALC LDL CHOL (test code = 2237) 88 MG/DL RISK RATIO LDL/HDL (test cod e = 2238) 1.96 RATIO Luis M RoperCOMPREHENSIVE METABOLIC [id number] 00:00:00* Test Item Value Reference Range Interpretation Comme nts GLUCOSE (test code = 2217) 108 MG/DL BUN (test code = 2208) 22 MG/DL CREATININE (test code = 2214) 1.18 MG/DL eGFR (2020 CKD-EPI) (test co de = 62304) 74 ML/MIN/1.73 CALC BUN/CREAT (test code = [...] 2204) 73 U/L AST (test code = 221) 23 U/L ALT (test code = 2219) 32 U/L Luis M RoperPSA, [id number] 00:00:00* Test Item Value Reference Range Interpretation Comme nts PSA, TOTAL (test code = 2606) 0.60 NG/ML Luis M RoperHEMOGLOBIN [id number] 00:00:00* Test Item Value Reference Range Interpretation Comme nts HEMOGLOBIN A1c (test code = 20621) 5.5 % Luis M RoperLIPID [id number] 00:00:00* Test Item Value Reference Range Interpretation Comme nts CHOLESTEROL (test code = 2210) 166 MG/DL TRIGLYCERIDES (test code = 2232) 235 MG/DL HDL CHOLESTEROL (test code = 2220) 45 MG/DL CALC LDL CHOL (test code = 2237) 88 MG/DL RISK RATIO LDL/HDL (test cod e = 2238) 1.96 RATIO Luis M RoperCOMPREHENSIVE METABOLIC [id number] 00:00:00* Test Item Value Reference Range Interpretation Comme nts GLUCOSE (test code = 2217) 108 MG/DL BUN (test code = 2208) 22 MG/DL CREATININE (test code = 2214) 1.18 MG/DL eGFR (2020 CKD-EPI) (test co de = 49528) 74 ML/MIN/1.73 CALC BUN/CREAT (test code = [...] = 2219) 32 U/L Luis M RoperPSA, [id number] 00:00:00* Test Item Value Reference Range Interpretation Comme manuel PSA, TOTAL (test code = 2606) 0.60 NG/ML Luis M RoperHEMOGLOBIN [id number] 00:00:00* Test Item Value Reference Range Interpretation Comme manuel HEMOGLOBIN A1c (test code = 98279) 5.5 % Luis M RoperLIPID [id number] 00:00:00* Test Item Value Reference Range Interpretation Comme nts CHOLESTEROL (test code = 2210) 166 MG/DL TRIGLYCERIDES (test code = 2232) 235 MG/DL HDL CHOLESTEROL (test code = 2220) 45 MG/DL CALC LDL CHOL (test code = 2237) 88 MG/DL RISK RATIO LDL/HDL (test cod e = 2238) 1.96 RATIO Luis M RoperCOMPREHENSIVE METABOLIC [id number] 00:00:00* Test Item Value Reference Range Interpretation Comme nts GLUCOSE (test code = 2217) 108 MG/DL BUN (test code = 2208) 22 MG/DL CREATININE (test code = 2214) 1.18 MG/DL eGFR (2020 CKD-EPI) (test co de = 89048) 74 ML/MIN/1.73 CALC BUN/CREAT (test code = [...] = 2219) 32 U/L Luis M RoperPSA, [id number] 00:00:00* Test Item Value Reference Range Interpretation Comme nts PSA, TOTAL (test code = 2606) 0.60 NG/ML Luis M RoperHEMOGLOBIN [id number] 00:00:00* Test Item Value Reference Range Interpretation Comme nts HEMOGLOBIN A1c (test code = 20259) 5.5 % Luis M RoperLIPID [id number] 00:00:00* Test Item Value Reference Range Interpretation Comme nts CHOLESTEROL (test code = 2210) 166 MG/DL TRIGLYCERIDES (test code = 2232) 235 MG/DL HDL CHOLESTEROL (test code = 2220) 45 MG/DL CALC LDL CHOL (test code = 2237) 88 MG/DL RISK RATIO LDL/HDL (test cod e = 2238) 1.96 RATIO Luis M RoperCOMPREHENSIVE METABOLIC [id number] 00:00:00* Test Item Value Reference Range Interpretation Comme nts GLUCOSE (test code = 2217) 108 MG/DL BUN (test code = 2208) 22 MG/DL CREATININE (test code = 2214) 1.18 MG/DL eGFR (2020 CKD-EPI) (test co de = 54828) 74 ML/MIN/1.73 CALC BUN/CREAT (test code = [...] = 2219) 32 U/L Luis M RoperPSA, [id number] 00:00:00* Test Item Value Reference Range Interpretation Comme nts PSA, TOTAL (test code = 2606) 0.60 NG/ML Luis M RoperHEMOGLOBIN [id number] 00:00:00* Test Item Value Reference Range Interpretation Comme nts HEMOGLOBIN A1c (test code = 78083) 5.5 % Luis M RoperLIPID [id number] 00:00:00* Test Item Value Reference Range Interpretation Comme nts CHOLESTEROL (test code = 2210) 166 MG/DL TRIGLYCERIDES (test code = 2232) 235 MG/DL HDL CHOLESTEROL (test code = 2220) 45 MG/DL CALC LDL CHOL (test code = 2237) 88 MG/DL RISK RATIO LDL/HDL (test cod e = 2238) 1.96 RATIO Luis M RoperCOMPREHENSIVE METABOLIC [id number] 00:00:00* Test Item Value Reference Range Interpretation Comme nts GLUCOSE (test code = 2217) 108 MG/DL BUN (test code = 2208) 22 MG/DL CREATININE (test code = 2214) 1.18 MG/DL eGFR (2020 CKD-EPI) (test co de = ) 74 ML/MIN/1.73 CALC BUN/CREAT (test code = [...] = 2219) 32 U/L Luis M RoperPSA, [id number] 00:00:00* Test Item Value Reference Range Interpretation Comme nts PSA, TOTAL (test code = 2606) 0.60 NG/ML Luis M RoperHEMOGLOBIN [id number] 00:00:00* Test Item Value Reference Range Interpretation Comme manuel HEMOGLOBIN A1c (test code = 44216) 5.5 % Luis M RoperLIPID [id number] 00:00:00* Test Item Value Reference Range Interpretation Comme nts CHOLESTEROL (test code = 2210) 166 MG/DL TRIGLYCERIDES (test code = 2232) 235 MG/DL HDL CHOLESTEROL (test code = 2220) 45 MG/DL CALC LDL CHOL (test code = 2237) 88 MG/DL RISK RATIO LDL/HDL (test cod e = 2238) 1.96 RATIO Luis M RoperCOMPREHENSIVE METABOLIC [id number] 00:00:00* Test Item Value Reference Range Interpretation Comme nts GLUCOSE (test code = 2217) 108 MG/DL BUN (test code = 2208) 22 MG/DL CREATININE (test code = 2214) 1.18 MG/DL eGFR (2020 CKD-EPI) (test co de = 02453) 74 ML/MIN/1.73 CALC BUN/CREAT (test code = [...] = 2219) 32 U/L Luis M RoperPSA, [id number] 00:00:00* Test Item Value Reference Range Interpretation Comme manuel PSA, TOTAL (test code = 2606) 0.60 NG/ML Luis M RoperHEMOGLOBIN [id number] 00:00:00* Test Item Value Reference Range Interpretation Comme manuel HEMOGLOBIN A1c (test code = 98094) 5.5 % Luis M RoperLIPID [id number] 00:00:00* Test Item Value Reference Range Interpretation Comme nts CHOLESTEROL (test code = 2210) 166 MG/DL TRIGLYCERIDES (test code = 2232) 235 MG/DL HDL CHOLESTEROL (test code = 2220) 45 MG/DL CALC LDL CHOL (test code = 2237) 88 MG/DL RISK RATIO LDL/HDL (test cod e = 2238) 1.96 RATIO Luis M RoperCOMPREHENSIVE METABOLIC [id number] 00:00:00* Test Item Value Reference Range Interpretation Comme nts GLUCOSE (test code = 2217) 108 MG/DL BUN (test code = 2208) 22 MG/DL CREATININE (test code = 2214) 1.18 MG/DL eGFR (2020 CKD-EPI) (test co de = 00213) 74 ML/MIN/1.73 CALC BUN/CREAT (test code = [...] = 2219) 32 U/L Luis M RoperPSA, [id number] 00:00:00* Test Item Value Reference Range Interpretation Comme nts PSA, TOTAL (test code = 2606) 0.60 NG/ML Luis M RoperHEMOGLOBIN [id number] 00:00:00* Test Item Value Reference Range Interpretation Comme nts HEMOGLOBIN A1c (test code = 05777) 5.5 % Luis M RoperLIPID [id number] 00:00:00* Test Item Value Reference Range Interpretation Comme nts CHOLESTEROL (test code = 2210) 166 MG/DL TRIGLYCERIDES (test code = 2232) 235 MG/DL HDL CHOLESTEROL (test code = 2220) 45 MG/DL CALC LDL CHOL (test code = 2237) 88 MG/DL RISK RATIO LDL/HDL (test cod e = 2238) 1.96 RATIO Luis M RoperCOMPREHENSIVE METABOLIC [id number] 00:00:00* Test Item Value Reference Range Interpretation Comme nts GLUCOSE (test code = 2217) 108 MG/DL BUN (test code = 2208) 22 MG/DL CREATININE (test code = 2214) 1.18 MG/DL eGFR (2020 CKD-EPI) (test co de = 48291) 74 ML/MIN/1.73 CALC BUN/CREAT (test code = [...] = 2219) 32 U/L Luis M RoperPSA, [id number] 00:00:00* Test Item Value Reference Range Interpretation Comme nts PSA, TOTAL (test code = 2606) 0.60 NG/ML Luis M RoperPSA, [id number] 00:00:00* Test Item Value Reference Range Interpretation Comme nts PSA, TOTAL (test code = 2606) 0.63 NG/ML Luis M RoperCOMPREHENSIVE METABOLIC [id number] 00:00:00* Test Item Value Reference Range Interpretation Comme nts GLUCOSE (test code = 2217) 106 MG/DL BUN (test code = 2208) 17 MG/DL CREATININE (test code = 2214) 0.96 MG/DL eGFR (2020 CKD-EPI) (test co de = 36876) 95 ML/MIN/1.73 CALC BUN/CREAT (test code = [...] = 2219) 22 U/L Luis M RoperHEMOGLOBIN [id number] 00:00:00* Test Item Value Reference Range Interpretation Comme manuel HEMOGLOBIN A1c (test code = 76110) 5.7 % Luis M RoperLIPID [id number] 00:00:00* Test Item Value Reference Range Interpretation Comme nts CHOLESTEROL (test code = 2210) 162 MG/DL TRIGLYCERIDES (test code = 2232) 76 MG/DL HDL CHOLESTEROL (test code = 2220) 49 MG/DL CALC LDL CHOL (test code = 2237) 96 MG/DL RISK RATIO LDL/HDL (test cod e = 2238) 1.96 RATIO Luis M RoperPSA, [id number] 00:00:00* Test Item Value Reference Range Interpretation Comme nts PSA, TOTAL (test code = 2606) 0.63 NG/ML Luis M RoperCOMPREHENSIVE METABOLIC [id number] 00:00:00* Test Item Value Reference Range Interpretation Comme nts GLUCOSE (test code = 2217) 106 MG/DL BUN (test code = 2208) 17 MG/DL CREATININE (test code = 2214) 0.96 MG/DL eGFR (2020 CKD-EPI) (test co de = 77377) 95 ML/MIN/1.73 CALC BUN/CREAT (test code = [...] = 2219) 22 U/L Luis M RoperHEMOGLOBIN [id number] 00:00:00* Test Item Value Reference Range Interpretation Comme nts HEMOGLOBIN A1c (test code = 64129) 5.7 % Luis M RoperLIPID [id number] 00:00:00* Test Item Value Reference Range Interpretation Comme nts CHOLESTEROL (test code = 2210) 162 MG/DL TRIGLYCERIDES (test code = 2232) 76 MG/DL HDL CHOLESTEROL (test code = 2220) 49 MG/DL CALC LDL CHOL (test code = 2237) 96 MG/DL RISK RATIO LDL/HDL (test cod e = 2238) 1.96 RATIO Luis M RoperPSA, [id number] 00:00:00* Test Item Value Reference Range Interpretation Comme nts PSA, TOTAL (test code = 2606) 0.63 NG/ML Luis M RoperCOMPREHENSIVE METABOLIC [id number] 00:00:00* Test Item Value Reference Range Interpretation Comme nts GLUCOSE (test code = 2217) 106 MG/DL BUN (test code = 2208) 17 MG/DL CREATININE (test code = 2214) 0.96 MG/DL eGFR (2020 CKD-EPI) (test co de = 27883) 95 ML/MIN/1.73 CALC BUN/CREAT (test code = [...] = 2219) 22 U/L Luis M RoperHEMOGLOBIN [id number] 00:00:00* Test Item Value Reference Range Interpretation Comme nts HEMOGLOBIN A1c (test code = 94149) 5.7 % Luis M RoperLIPID [id number] 00:00:00* Test Item Value Reference Range Interpretation Comme nts CHOLESTEROL (test code = 2210) 162 MG/DL TRIGLYCERIDES (test code = 2232) 76 MG/DL HDL CHOLESTEROL (test code = 2220) 49 MG/DL CALC LDL CHOL (test code = 2237) 96 MG/DL RISK RATIO LDL/HDL (test cod e = 2238) 1.96 RATIO Luis M RoperPSA, [id number] 00:00:00* Test Item Value Reference Range Interpretation Comme nts PSA, TOTAL (test code = 2606) 0.63 NG/ML Luis M RoperCOMPREHENSIVE METABOLIC [id number] 00:00:00* Test Item Value Reference Range Interpretation Comme nts GLUCOSE (test code = 2217) 106 MG/DL BUN (test code = 2208) 17 MG/DL CREATININE (test code = 2214) 0.96 MG/DL eGFR (2020 CKD-EPI) (test co de = 55176) 95 ML/MIN/1.73 CALC BUN/CREAT (test code = [...] = 2219) 22 U/L Luis M RoperHEMOGLOBIN [id number] 00:00:00* Test Item Value Reference Range Interpretation Comme nts HEMOGLOBIN A1c (test code = 63943) 5.7 % Luis M RoperLIPID [id number] 00:00:00* Test Item Value Reference Range Interpretation Comme nts CHOLESTEROL (test code = 2210) 162 MG/DL TRIGLYCERIDES (test code = 2232) 76 MG/DL HDL CHOLESTEROL (test code = 2220) 49 MG/DL CALC LDL CHOL (test code = 2237) 96 MG/DL RISK RATIO LDL/HDL (test cod e = 2238) 1.96 RATIO Luis M RoperPSA, [id number] 00:00:00* Test Item Value Reference Range Interpretation Comme nts PSA, TOTAL (test code = 2606) 0.63 NG/ML Luis M RoperCOMPREHENSIVE METABOLIC [id number] 00:00:00* Test Item Value Reference Range Interpretation Comme nts GLUCOSE (test code = 2217) 106 MG/DL BUN (test code = 2208) 17 MG/DL CREATININE (test code = 2214) 0.96 MG/DL eGFR (2020 CKD-EPI) (test co de = 54330) 95 ML/MIN/1.73 CALC BUN/CREAT (test code = [...] = 2219) 22 U/L Luis M RoperHEMOGLOBIN [id number] 00:00:00* Test Item Value Reference Range Interpretation Comme nts HEMOGLOBIN A1c (test code = 04569) 5.7 % Luis M RoperLIPID [id number] 00:00:00* Test Item Value Reference Range Interpretation Comme nts CHOLESTEROL (test code = 2210) 162 MG/DL TRIGLYCERIDES (test code = 2232) 76 MG/DL HDL CHOLESTEROL (test code = 2220) 49 MG/DL CALC LDL CHOL (test code = 2237) 96 MG/DL RISK RATIO LDL/HDL (test cod e = 2238) 1.96 RATIO Luis M RoperPSA, [id number] 00:00:00* Test Item Value Reference Range Interpretation Comme nts PSA, TOTAL (test code = 2606) 0.63 NG/ML Luis M RoperCOMPREHENSIVE METABOLIC [id number] 00:00:00* Test Item Value Reference Range Interpretation Comme nts GLUCOSE (test code = 2217) 106 MG/DL BUN (test code = 2208) 17 MG/DL CREATININE (test code = 2214) 0.96 MG/DL eGFR (2020 CKD-EPI) (test co de = 19350) 95 ML/MIN/1.73 CALC BUN/CREAT (test code = [...] = 2219) 22 U/L Luis M RoperHEMOGLOBIN [id number] 00:00:00* Test Item Value Reference Range Interpretation Comme nts HEMOGLOBIN A1c (test code = 04778) 5.7 % Luis M RoperLIPID [id number] 00:00:00* Test Item Value Reference Range Interpretation Comme nts CHOLESTEROL (test code = 2210) 162 MG/DL TRIGLYCERIDES (test code = 2232) 76 MG/DL HDL CHOLESTEROL (test code = 2220) 49 MG/DL CALC LDL CHOL (test code = 2237) 96 MG/DL RISK RATIO LDL/HDL (test cod e = 2238) 1.96 RATIO Luis M RoperPSA, [id number] 00:00:00* Test Item Value Reference Range Interpretation Comme nts PSA, TOTAL (test code = 2606) 0.63 NG/ML Luis M RoperCOMPREHENSIVE METABOLIC [id number] 00:00:00* Test Item Value Reference Range Interpretation Comme nts GLUCOSE (test code = 2217) 106 MG/DL BUN (test code = 2208) 17 MG/DL CREATININE (test code = 2214) 0.96 MG/DL eGFR (2020 CKD-EPI) (test co de = 95240) 95 ML/MIN/1.73 CALC BUN/CREAT (test code = [...] = 2219) 22 U/L Luis M RoperHEMOGLOBIN [id number] 00:00:00* Test Item Value Reference Range Interpretation Comme manuel HEMOGLOBIN A1c (test code = 40460) 5.7 % Luis M RoperLIPID [id number] 00:00:00* Test Item Value Reference Range Interpretation Comme nts CHOLESTEROL (test code = 2210) 162 MG/DL TRIGLYCERIDES (test code = 2232) 76 MG/DL HDL CHOLESTEROL (test code = 2220) 49 MG/DL CALC LDL CHOL (test code = 2237) 96 MG/DL RISK RATIO LDL/HDL (test cod e = 2238) 1.96 RATIO Luis M RoperPSA, [id number] 00:00:00* Test Item Value Reference Range Interpretation Comme nts PSA, TOTAL (test code = 2606) 0.63 NG/ML Luis M RoperCOMPREHENSIVE METABOLIC [id number] 00:00:00* Test Item Value Reference Range Interpretation Comme nts GLUCOSE (test code = 2217) 106 MG/DL BUN (test code = 2208) 17 MG/DL CREATININE (test code = 2214) 0.96 MG/DL eGFR (2020 CKD-EPI) (test co de = 43008) 95 ML/MIN/1.73 CALC BUN/CREAT (test code = [...] = 2219) 22 U/L Luis M RoperHEMOGLOBIN [id number] 00:00:00* Test Item Value Reference Range Interpretation Comme manuel HEMOGLOBIN A1c (test code = 12260) 5.7 % Luis M RoperLIPID [id number] 00:00:00* Test Item Value Reference Range Interpretation Comme nts CHOLESTEROL (test code = 2210) 162 MG/DL TRIGLYCERIDES (test code = 2232) 76 MG/DL HDL CHOLESTEROL (test code = 2220) 49 MG/DL CALC LDL CHOL (test code = 2237) 96 MG/DL RISK RATIO LDL/HDL (test cod e = 2238) 1.96 RATIO Luis M RoperPSA, [id number] 00:00:00* Test Item Value Reference Range Interpretation Comme nts PSA, TOTAL (test code = 2606) 0.63 NG/ML Luis M RoperCOMPREHENSIVE METABOLIC [id number] 00:00:00* Test Item Value Reference Range Interpretation Comme nts GLUCOSE (test code = 2217) 106 MG/DL BUN (test code = 2208) 17 MG/DL CREATININE (test code = 2214) 0.96 MG/DL eGFR (2020 CKD-EPI) (test co de = 15027) 95 ML/MIN/1.73 CALC BUN/CREAT (test code = [...] = 2219) 22 U/L Luis M RoperHEMOGLOBIN [id number] 00:00:00* Test Item Value Reference Range Interpretation Comme manuel HEMOGLOBIN A1c (test code = 01954) 5.7 % Luis M RoperLIPID [id number] 00:00:00* Test Item Value Reference Range Interpretation Comme nts CHOLESTEROL (test code = 2210) 162 MG/DL TRIGLYCERIDES (test code = 2232) 76 MG/DL HDL CHOLESTEROL (test code = 2220) 49 MG/DL CALC LDL CHOL (test code = 2237) 96 MG/DL RISK RATIO LDL/HDL (test cod e = 2238) 1.96 RATIO Luis M RoperPSA, [id number] 00:00:00* Test Item Value Reference Range Interpretation Comme nts PSA, TOTAL (test code = 2606) 0.63 NG/ML Luis M RoperCOMPREHENSIVE METABOLIC [id number] 00:00:00* Test Item Value Reference Range Interpretation Comme nts GLUCOSE (test code = 2217) 106 MG/DL BUN (test code = 2208) 17 MG/DL CREATININE (test code = 2214) 0.96 MG/DL eGFR (2020 CKD-EPI) (test co de = 85559) 95 ML/MIN/1.73 CALC BUN/CREAT (test code = [...] = 2219) 22 U/L Luis M RoperHEMOGLOBIN [id number] 00:00:00* Test Item Value Reference Range Interpretation Comme manuel HEMOGLOBIN A1c (test code = 32925) 5.7 % Luis M RoperLIPID [id number] 00:00:00* Test Item Value Reference Range Interpretation Comme nts CHOLESTEROL (test code = 2210) 162 MG/DL TRIGLYCERIDES (test code = 2232) 76 MG/DL HDL CHOLESTEROL (test code = 2220) 49 MG/DL CALC LDL CHOL (test code = 2237) 96 MG/DL RISK RATIO LDL/HDL (test cod e = 2238) 1.96 RATIO Luis M RoperPSA, [id number] 00:00:00* Test Item Value Reference Range Interpretation Comme nts PSA, TOTAL (test code = 2606) 0.63 NG/ML Luis M RoperCOMPREHENSIVE METABOLIC [id number] 00:00:00* Test Item Value Reference Range Interpretation Comme nts GLUCOSE (test code = 2217) 106 MG/DL BUN (test code = 2208) 17 MG/DL CREATININE (test code = 2214) 0.96 MG/DL eGFR (2020 CKD-EPI) (test co de = 46168) 95 ML/MIN/1.73 CALC BUN/CREAT (test code = [...] = 2219) 22 U/L Luis M RoperHEMOGLOBIN [id number] 00:00:00* Test Item Value Reference Range Interpretation Comme nts HEMOGLOBIN A1c (test code = 28738) 5.7 % Luis M RoperLIPID [id number] 00:00:00* Test Item Value Reference Range Interpretation Comme nts CHOLESTEROL (test code = 2210) 162 MG/DL TRIGLYCERIDES (test code = 2232) 76 MG/DL HDL CHOLESTEROL (test code = 2220) 49 MG/DL CALC LDL CHOL (test code = 2237) 96 MG/DL RISK RATIO LDL/HDL (test cod e = 2238) 1.96 RATIO Luis M RoperPSA, [id number] 00:00:00* Test Item Value Reference Range Interpretation Comme nts PSA, TOTAL (test code = 2606) 0.63 NG/ML Luis M RoperCOMPREHENSIVE METABOLIC [id number] 00:00:00* Test Item Value Reference Range Interpretation Comme nts GLUCOSE (test code = 2217) 106 MG/DL BUN (test code = 2208) 17 MG/DL CREATININE (test code = 2214) 0.96 MG/DL eGFR (2020 CKD-EPI) (test co de = 33418) 95 ML/MIN/1.73 CALC BUN/CREAT (test code = [...] = 2219) 22 U/L Luis M RoperHEMOGLOBIN [id number] 00:00:00* Test Item Value Reference Range Interpretation Comme manuel HEMOGLOBIN A1c (test code = 05849) 5.7 % Luis M RoperLIPID [id number] 00:00:00* Test Item Value Reference Range Interpretation Comme nts CHOLESTEROL (test code = 2210) 162 MG/DL TRIGLYCERIDES (test code = 2232) 76 MG/DL HDL CHOLESTEROL (test code = 2220) 49 MG/DL CALC LDL CHOL (test code = 2237) 96 MG/DL RISK RATIO LDL/HDL (test cod e = 2238) 1.96 RATIO Luis M RoperPSA, [id number] 00:00:00* Test Item Value Reference Range Interpretation Comme nts PSA, TOTAL (test code = 2606) 0.63 NG/ML Luis M RoperPSA, [id number] 00:00:00* Test Item Value Reference Range Interpretation Comme nts PSA, TOTAL (test code = 2606) 0.63 NG/ML Luis M RoperCOMPREHENSIVE METABOLIC [id number] 00:00:00* Test Item Value Reference Range Interpretation Comme nts GLUCOSE (test code = 2217) 106 MG/DL BUN (test code = 2208) 17 MG/DL CREATININE (test code = 2214) 0.96 MG/DL eGFR (2020 CKD-EPI) (test co de = 88075) 95 ML/MIN/1.73 CALC BUN/CREAT (test code = [...] = 2219) 22 U/L Luis M RoperHEMOGLOBIN [id number] 00:00:00* Test Item Value Reference Range Interpretation Comme manuel HEMOGLOBIN A1c (test code = 93704) 5.7 % Luis M RoperLIPID [id number] 00:00:00* Test Item Value Reference Range Interpretation Comme nts CHOLESTEROL (test code = 2210) 162 MG/DL TRIGLYCERIDES (test code = 2232) 76 MG/DL HDL CHOLESTEROL (test code = 2220) 49 MG/DL CALC LDL CHOL (test code = 2237) 96 MG/DL RISK RATIO LDL/HDL (test cod e = 2238) 1.96 RATIO Luis M RoperPSA, [id number] 00:00:00* Test Item Value Reference Range Interpretation Comme nts PSA, TOTAL (test code = 2606) 0.63 NG/ML Luis M RoperCOMPREHENSIVE METABOLIC [id number] 00:00:00* Test Item Value Reference Range Interpretation Comme nts GLUCOSE (test code = 2217) 106 MG/DL BUN (test code = 2208) 17 MG/DL CREATININE (test code = 2214) 0.96 MG/DL eGFR (2020 CKD-EPI) (test co de = 13636) 95 ML/MIN/1.73 CALC BUN/CREAT (test code = [...] code = 2219) 22 U/L Luis M RoperCOMPREHENSIVE METABOLIC [id number] 00:00:00* Test Item Value Reference Range Interpretation Comme nts GLUCOSE (test code = 2217) 106 MG/DL BUN (test code = 2208) 17 MG/DL CREATININE (test code = 2214) 0.96 MG/DL eGFR (2020 CKD-EPI) (test co de = 18032) 95 ML/MIN/1.73 CALC BUN/CREAT (test code = [...] code = 2219) 22 U/L Luis M Carroll AustinHEMOGLOBIN [id number] 00:00:00* Test Item Value Reference Range Interpretation Comme nts HEMOGLOBIN A1c (test code = 82160) 5.7 % Luis M Carroll AustinLIPID [id number] 00:00:00* Test Item Value Reference Range Interpretation Comme nts CHOLESTEROL (test code = 2210) 162 MG/DL TRIGLYCERIDES (test code = 2232) 76 MG/DL HDL CHOLESTEROL (test code = 2220) 49 MG/DL CALC LDL CHOL (test code = 2237) 96 MG/DL RISK RATIO LDL/HDL (test cod e = 2238) 1.96 RATIO Luis M Carroll AustinHEMOGLOBIN [id number] 00:00:00* Test Item Value Reference Range Interpretation Comme nts HEMOGLOBIN A1c (test code = 73291) 5.7 % Luis M Carroll AustinLIPID [id number] 00:00:00* Test Item Value Reference Range Interpretation Comme nts CHOLESTEROL (test code = 2210) 162 MG/DL TRIGLYCERIDES (test code = 2232) 76 MG/DL HDL CHOLESTEROL (test code = 2220) 49 MG/DL CALC LDL CHOL (test code = 2237) 96 MG/DL RISK RATIO LDL/HDL (test cod e = 2238) 1.96 RATIO Luis M RoperPSA, [id number] 00:00:00* Test Item Value Reference Range Interpretation Comme nts PSA, TOTAL (test code = 2606) 0.63 NG/ML Luis M RoperCOMPREHENSIVE METABOLIC [id number] 00:00:00* Test Item Value Reference Range Interpretation Comme nts GLUCOSE (test code = 2217) 106 MG/DL BUN (test code = 2208) 17 MG/DL CREATININE (test code = 2214) 0.96 MG/DL eGFR (2020 CKD-EPI) (test co de = 59282) 95 ML/MIN/1.73 CALC BUN/CREAT (test code = [...] = 2219) 22 U/L Luis M RoperHEMOGLOBIN [id number] 00:00:00* Test Item Value Reference Range Interpretation Comme manuel HEMOGLOBIN A1c (test code = 94053) 5.7 % Luis M RoperLIPID [id number] 00:00:00* Test Item Value Reference Range Interpretation Comme nts CHOLESTEROL (test code = 2210) 162 MG/DL TRIGLYCERIDES (test code = 2232) 76 MG/DL HDL CHOLESTEROL (test code = 2220) 49 MG/DL CALC LDL CHOL (test code = 2237) 96 MG/DL RISK RATIO LDL/HDL (test cod e = 2238) 1.96 RATIO Luis M F AustinOccult Blood, Fecal, [id number] 00:00:00* Test Item Value Reference Range Interpretation Comme nts Occult Blood, Fecal, IA (kamlesh t code = 31327-1) Negative Luis M F AustinOccult Blood, Fecal, [id number] 00:00:00* Test Item Value Reference Range Interpretation Comme nts Occult Blood, Fecal, IA (kamlesh t code = 77303-6) Negative Luis M F AustinOccult Blood, Fecal, [id number] 00:00:00* Test Item Value Reference Range Interpretation Comme nts Occult Blood, Fecal, IA (kamlesh t code = 12329-8) Negative Luis M F AustinOccult Blood, Fecal, [id number] 00:00:00* Test Item Value Reference Range Interpretation Comme nts Occult Blood, Fecal, IA (kamlesh t code = 65825-5) Negative Luis M F AustinOccult Blood, Fecal, [id number] 00:00:00* Test Item Value Reference Range Interpretation Comme nts Occult Blood, Fecal, IA (kamlesh t code = 80623-7) Negative Luis M F AustinOccult Blood, Fecal, [id number] 00:00:00* Test Item Value Reference Range Interpretation Comme nts Occult Blood, Fecal, IA (kamlesh t code = 61768-4) Negative Luis M F AustinOccult Blood, Fecal, [id number] 00:00:00* Test Item Value Reference Range Interpretation Comme nts Occult Blood, Fecal, IA (kamlesh t code = 77505-3) Negative Luis M F AustinOccult Blood, Fecal, [id number] 00:00:00* Test Item Value Reference Range Interpretation Comme nts Occult Blood, Fecal, IA (kamlesh t code = 84362-2) Negative Luis M F AustinOccult Blood, Fecal, [id number] 00:00:00* Test Item Value Reference Range Interpretation Comme nts Occult Blood, Fecal, IA (kamlesh t code = 97775-1) Negative Luis M F AustinOccult Blood, Fecal, [id number] 00:00:00* Test Item Value Reference Range Interpretation Comme nts Occult Blood, Fecal, IA (kamlesh t code = 79005-8) Negative Luis M F AustinOccult Blood, Fecal, [id number] 00:00:00* Test Item Value Reference Range Interpretation Comme nts Occult Blood, Fecal, IA (kamlesh t code = 80165-7) Negative Luis M F AustinOccult Blood, Fecal, [id number] 00:00:00* Test Item Value Reference Range Interpretation Comme nts Occult Blood, Fecal, IA (kamlesh t code = 62275-8) Negative Luis M F AustinOccult Blood, Fecal, [id number] 00:00:00* Test Item Value Reference Range Interpretation Comme nts Occult Blood, Fecal, IA (kamlesh t code = 82774-3) Negative Luis M F AustinOccult Blood, Fecal, [id number] 00:00:00* Test Item Value Reference Range Interpretation Comme nts Occult Blood, Fecal, IA (kamlesh t code = 13782-8) Negative Luis M F AustinOccult Blood, Fecal, [id number] 00:00:00* Test Item Value Reference Range Interpretation Comme nts Occult Blood, Fecal, IA (kamlesh t code = 26943-3) Negative Luis M F AustinOccult Blood, Fecal, [id number] 00:00:00* Test Item Value Reference Range Interpretation Comme nts Occult Blood, Fecal, IA (kamlesh t code = 89621-4) Negative Luis M F AustinN-TERMINAL [id number] 04:07:03* Test Item Value Reference Range Interpretation Comme nts NT-proBNP (test code = 53305-9) 37 pg/mL <=125 Lab Interpretation (test cod e = 44546-7) [facility] (71617)2023-06-01 03:58:42* Test Item Value Reference Range Interpretation Comme nts NA (test code = 2507128269) 141 mmol/L 135-145 K (test code = 4086933396) 3.9 mmol/L 3.5-5.0 CL (test code = 2849360847) 104 mmol/L 98-108 CO2 TOTAL (test code = 2129354051) 27 mmol/L 23-31 AGAP (test code = 7175187874) 10 2-16 BUN (test code = 3818567620) 17 mg/dL 7-23 GLUCOSE (test code = 5375293160) 125 mg/dL 70-110 H CREATININE (test code = 0617571999) 0.78 mg/dL 0.60-1.25 TOTAL BILI (test code = 3040028909) 0.4 mg/dL 0.1-1.1 CALCIUM (test code = 4360062945) 8.9 mg/dL 8.6-10.6 T PROTEIN (test code = 9210509588) 7.7 g/dL 6.3-8.2 ALBUMIN (test code = 3759792671) 4.1 g/dL 3.5-5.0 ALK PHOS (test code = 1705650049) 71 U/L 34-122 ALTv (test code = 1742-6) 34 U/L 5-50 AST(SGOT) (test code = 3462947828) 27 U/L 13-40 eGFR (test code = 5670654583) 104.9 mL/min/1.73m2 TRES (test code = TRES) [...] imaging tests). Lab Interpretation (test code = 34957-1) Abnormal [facility] WITH [id number] 03:43:59* Test Item Value Reference Range Interpretation Comme nts WBC (test code = 6690-2) 11.80 See_Comment H [Automated [employer]] The system which generated this result transmitted reference range: 4.20 - 10.70 10*3/?L. The reference range was not used to interpret this result as normal/abnormal. RBC (test code = 789-8) 4.79 See_Comment [Automated [employer]] The system which generated this result [...] 34.0 g/dL 31.2-35.0 RDW-SD (test code = 93189-6) 42.2 fL 38.5-51.6 RDW-CV (test code = 788-0) 12.3 % 12.1-15.4 PLT (test code = 777-3) 290 See_Comment [Automated [employer]] The system which generated this result transmitted reference range: 150 - 328 10*3/?L. The reference range was not used to interpret this result as normal/abnormal. MPV (test code = 15526-6) 11.1 fL 9.8-13.0 NRBC/100 WBC (test code = 5466938996) 0.0 See_Comment [Automated [employer]] The system which generated this result transmitted reference range: 0.0 - 10.0 /100 WBCs. The reference range was not used to interpret this result as normal/abnormal. NRBC x10^3 (test code = 4760150305) See_Comment [Automated messa ge] The system which generated this result transmitted reference range: 10*3/?L. The reference range was not used to interpret this result as normal/abnormal. GRAN MAT (NEUT) % (test code = 770-8) 61.1 % IMM GRAN % (test code = 1061157036) 0.60 % LYMPH % (test code = 736-9) 22.8 % MONO % (test code = 5905-5) 10.6 % EOS % (test code = 713-8) 4.2 % BASO % (test code = 706-2) 0.7 % GRAN MAT x10^3(ANC) (test code = 4382800856) 7.21 10*3/uL 1.99-6.95 H IMM GRAN x10^3 (test code = 6029387748) 0.07 10*3/uL 0.00-0.06 H LYMPH x10^3 (test code = 731-0) 2.69 10*3/uL 1.09-3.23 MONO x10^3 (test code = 742-7) 1.25 10*3/uL 0.36-1.02 H EOS x10^3 (test code = 711-2) 0.50 10*3/uL 0.06-0.53 BASO x10^3 (test code = 704-7) 0.08 10*3/uL 0.01-0.09 Lab Interpretation (test code = 45540-1) [facility] [id number] 00:00:00* Test Item Value Reference Range Interpretation Comme nts GLUCOSE (test code = 2217) 121 MG/DL BUN (test code = 2208) 19 MG/DL CREATININE (test code = 2214) 0.94 MG/DL eGFR AMER. (test cod e = 32442) 110 ML/MIN/1.73 eGFR NON- AMER. (test code = 96469) 95 ML/MIN/1.73 CALC BUN/CREAT (test code = [...] = 2219) 59 U/L Luis M RoperHEMOGLOBIN [id number] 00:00:00* Test Item Value Reference Range Interpretation Comme nts HEMOGLOBIN A1c (test code = 37140) 5.7 % Luis M RoperCBC W/AUTO [id number] 00:00:00* Test Item Value Reference Range Interpretation [...] ABS NUCLEATED RBCS (test cod e = 30152) 0.00 K/UL Luis M [id number] 00:00:00* Test Item Value Reference Range Interpretation Comme nts TSH, THIRD GENERATION (test code = 2821) 0.900 UIU/ML Luis M RoperLIPID [id number] 00:00:00* Test Item Value Reference Range Interpretation Comme nts CHOLESTEROL (test code = 2210) 206 MG/DL TRIGLYCERIDES (test code = 2232) 286 MG/DL HDL CHOLESTEROL (test code = 2220) 52 MG/DL CALC LDL CHOL (test code = 2237) 113 MG/DL RISK RATIO LDL/HDL (test cod e = 2238) 2.17 RATIO Luis M RoperCOMPREHENSIVE METABOLIC [id number] 00:00:00* Test Item Value Reference Range Interpretation Comme nts GLUCOSE (test code = 2217) 121 MG/DL BUN (test code = 2208) 19 MG/DL CREATININE (test code = 2214) 0.94 MG/DL eGFR AMER. (test cod e = 16424) 110 ML/MIN/1.73 eGFR NON- AMER. (test code = 87996) 95 ML/MIN/1.73 CALC BUN/CREAT (test code = [...] = 2219) 59 U/L Luis M RoperHEMOGLOBIN [id number] 00:00:00* Test Item Value Reference Range Interpretation Comme nts HEMOGLOBIN A1c (test code = 63793) 5.7 % Luis M RoperCBC W/AUTO [id number] 00:00:00* Test Item Value Reference Range Interpretation [...] ABS NUCLEATED RBCS (test cod e = 72693) 0.00 K/UL Luis M [id number] 00:00:00* Test Item Value Reference Range Interpretation Comme nts TSH, THIRD GENERATION (test code = 2821) 0.900 UIU/ML Luis M RoperLIPID [id number] 00:00:00* Test Item Value Reference Range Interpretation Comme nts CHOLESTEROL (test code = 2210) 206 MG/DL TRIGLYCERIDES (test code = 2232) 286 MG/DL HDL CHOLESTEROL (test code = 2220) 52 MG/DL CALC LDL CHOL (test code = 2237) 113 MG/DL RISK RATIO LDL/HDL (test cod e = 2238) 2.17 RATIO Luis M RoperCOMPREHENSIVE METABOLIC [id number] 00:00:00* Test Item Value Reference Range Interpretation Comme manuel GLUCOSE (test code = 2217) 121 MG/DL BUN (test code = 2208) 19 MG/DL CREATININE (test code = 2214) 0.94 MG/DL eGFR AMER. (test cod e = 20205) 110 ML/MIN/1.73 eGFR NON- AMER. (test code = 72439) 95 ML/MIN/1.73 CALC BUN/CREAT (test code = [...] = 2219) 59 U/L Luis M RoperHEMOGLOBIN [id number] 00:00:00* Test Item Value Reference Range Interpretation Comme manuel HEMOGLOBIN A1c (test code = 30752) 5.7 % Luis M RoperCBC W/AUTO [id number] 00:00:00* Test Item Value Reference Range Interpretation [...] ABS NUCLEATED RBCS (test cod e = 40084) 0.00 K/UL Luis M [id number] 00:00:00* Test Item Value Reference Range Interpretation Comme nts TSH, THIRD GENERATION (test code = 2821) 0.900 UIU/ML Luis M RoperLIPID [id number] 00:00:00* Test Item Value Reference Range Interpretation Comme nts CHOLESTEROL (test code = 2210) 206 MG/DL TRIGLYCERIDES (test code = 2232) 286 MG/DL HDL CHOLESTEROL (test code = 2220) 52 MG/DL CALC LDL CHOL (test code = 2237) 113 MG/DL RISK RATIO LDL/HDL (test cod e = 2238) 2.17 RATIO Luis M RoperCOMPREHENSIVE METABOLIC [id number] 00:00:00* Test Item Value Reference Range Interpretation Comme nts GLUCOSE (test code = 2217) 121 MG/DL BUN (test code = 2208) 19 MG/DL CREATININE (test code = 2214) 0.94 MG/DL eGFR AMER. (test cod e = 30686) 110 ML/MIN/1.73 eGFR NON- AMER. (test code = 97920) 95 ML/MIN/1.73 CALC BUN/CREAT (test code = [...] = 2219) 59 U/L Luis M RoperHEMOGLOBIN [id number] 00:00:00* Test Item Value Reference Range Interpretation Comme nts HEMOGLOBIN A1c (test code = 33449) 5.7 % Luis M RoperCBC W/AUTO [id number] 00:00:00* Test Item Value Reference Range Interpretation [...] ABS NUCLEATED RBCS (test cod e = 16751) 0.00 K/UL Luis M [id number] 00:00:00* Test Item Value Reference Range Interpretation Comme nts TSH, THIRD GENERATION (test code = 2821) 0.900 UIU/ML Luis M Carroll AustinLIPID [id number] 00:00:00* Test Item Value Reference Range Interpretation Comme nts CHOLESTEROL (test code = 2210) 206 MG/DL TRIGLYCERIDES (test code = 2232) 286 MG/DL HDL CHOLESTEROL (test code = 2220) 52 MG/DL CALC LDL CHOL (test code = 2237) 113 MG/DL RISK RATIO LDL/HDL (test cod e = 2238) 2.17 RATIO Luis M RoperCOMPREHENSIVE METABOLIC [id number] 00:00:00* Test Item Value Reference Range Interpretation Comme nts GLUCOSE (test code = 2217) 121 MG/DL BUN (test code = 2208) 19 MG/DL CREATININE (test code = 2214) 0.94 MG/DL eGFR AMER. (test cod e = 30768) 110 ML/MIN/1.73 eGFR NON- AMER. (test code = 61849) 95 ML/MIN/1.73 CALC BUN/CREAT (test code = [...] = 2219) 59 U/L Luis M RoperHEMOGLOBIN [id number] 00:00:00* Test Item Value Reference Range Interpretation Comme nts HEMOGLOBIN A1c (test code = 85027) 5.7 % Luis M RoperCBC W/AUTO [id number] 00:00:00* Test Item Value Reference Range Interpretation [...] ABS NUCLEATED RBCS (test cod e = 50810) 0.00 K/UL Luis M [id number] 00:00:00* Test Item Value Reference Range Interpretation Comme nts TSH, THIRD GENERATION (test code = 2821) 0.900 UIU/ML Luis M RoperLIPID [id number] 00:00:00* Test Item Value Reference Range Interpretation Comme nts CHOLESTEROL (test code = 2210) 206 MG/DL TRIGLYCERIDES (test code = 2232) 286 MG/DL HDL CHOLESTEROL (test code = 2220) 52 MG/DL CALC LDL CHOL (test code = 2237) 113 MG/DL RISK RATIO LDL/HDL (test cod e = 2238) 2.17 RATIO Luis M RoperCOMPREHENSIVE METABOLIC [id number] 00:00:00* Test Item Value Reference Range Interpretation Comme nts GLUCOSE (test code = 2217) 121 MG/DL BUN (test code = 2208) 19 MG/DL CREATININE (test code = 2214) 0.94 MG/DL eGFR AMER. (test cod e = 97244) 110 ML/MIN/1.73 eGFR NON- AMER. (test code = 09805) 95 ML/MIN/1.73 CALC BUN/CREAT (test code = [...] = 2219) 59 U/L Luis M RoperHEMOGLOBIN [id number] 00:00:00* Test Item Value Reference Range Interpretation Comme manuel HEMOGLOBIN A1c (test code = 10421) 5.7 % Luis M RoperCBC W/AUTO [id number] 00:00:00* Test Item Value Reference Range Interpretation [...] ABS NUCLEATED RBCS (test cod e = 57480) 0.00 K/UL Luis M [id number] 00:00:00* Test Item Value Reference Range Interpretation Comme nts TSH, THIRD GENERATION (test code = 2821) 0.900 UIU/ML Luis M RoperLIPID [id number] 00:00:00* Test Item Value Reference Range Interpretation Comme nts CHOLESTEROL (test code = 2210) 206 MG/DL TRIGLYCERIDES (test code = 2232) 286 MG/DL HDL CHOLESTEROL (test code = 2220) 52 MG/DL CALC LDL CHOL (test code = 2237) 113 MG/DL RISK RATIO LDL/HDL (test cod e = 2238) 2.17 RATIO Luis M RoperCOMPREHENSIVE METABOLIC [id number] 00:00:00* Test Item Value Reference Range Interpretation Comme nts GLUCOSE (test code = 2217) 121 MG/DL BUN (test code = 2208) 19 MG/DL CREATININE (test code = 2214) 0.94 MG/DL eGFR AMER. (test cod e = 86729) 110 ML/MIN/1.73 eGFR NON- AMER. (test code = 60910) 95 ML/MIN/1.73 CALC BUN/CREAT (test code = [...] 0.2 MG/DL ALKALINE PHOSPHATASE (test code = 2203) 82 U/L AST (test code = 2218) 28 U/L ALT (test code = 2219) 59 U/L Luis M RoperHEMOGLOBIN [id number] 00:00:00* Test Item Value Reference Range Interpretation Comme nts HEMOGLOBIN A1c (test code = 08843) 5.7 % Luis M RoperCBC W/AUTO [id number] 00:00:00* Test Item Value Reference Range Interpretation [...] ABS NUCLEATED RBCS (test cod e = 21678) 0.00 K/UL Luis M [id number] 00:00:00* Test Item Value Reference Range Interpretation Comme nts TSH, THIRD GENERATION (test code = 2821) 0.900 UIU/ML Luis M Carroll AustinLIPID [id number] 00:00:00* Test Item Value Reference Range Interpretation Comme nts CHOLESTEROL (test code = 2210) 206 MG/DL TRIGLYCERIDES (test code = 2232) 286 MG/DL HDL CHOLESTEROL (test code = 2220) 52 MG/DL CALC LDL CHOL (test code = 2237) 113 MG/DL RISK RATIO LDL/HDL (test cod e = 2238) 2.17 RATIO Luis M RoperCOMPREHENSIVE METABOLIC [id number] 00:00:00* Test Item Value Reference Range Interpretation Comme nts GLUCOSE (test code = 2217) 121 MG/DL BUN (test code = 2208) 19 MG/DL CREATININE (test code = 2214) 0.94 MG/DL eGFR AMER. (test cod e = 30221) 110 ML/MIN/1.73 eGFR NON- AMER. (test code = 63156) 95 ML/MIN/1.73 CALC BUN/CREAT (test code = [...] = 2219) 59 U/L Luis M RoperHEMOGLOBIN [id number] 00:00:00* Test Item Value Reference Range Interpretation Comme nts HEMOGLOBIN A1c (test code = 74761) 5.7 % Luis M RoperCBC W/AUTO [id number] 00:00:00* Test Item Value Reference Range Interpretation [...] ABS NUCLEATED RBCS (test cod e = 89021) 0.00 K/UL Luis M [id number] 00:00:00* Test Item Value Reference Range Interpretation Comme nts TSH, THIRD GENERATION (test code = 2821) 0.900 UIU/ML Luis M RoperLIPID [id number] 00:00:00* Test Item Value Reference Range Interpretation Comme nts CHOLESTEROL (test code = 2210) 206 MG/DL TRIGLYCERIDES (test code = 2232) 286 MG/DL HDL CHOLESTEROL (test code = 2220) 52 MG/DL CALC LDL CHOL (test code = 2237) 113 MG/DL RISK RATIO LDL/HDL (test cod e = 2238) 2.17 RATIO Luis M RoperCOMPREHENSIVE METABOLIC [id number] 00:00:00* Test Item Value Reference Range Interpretation Comme nts GLUCOSE (test code = 2217) 121 MG/DL BUN (test code = 2208) 19 MG/DL CREATININE (test code = 2214) 0.94 MG/DL eGFR AMER. (test cod e = 60620) 110 ML/MIN/1.73 eGFR NON- AMER. (test code = 44291) 95 ML/MIN/1.73 CALC BUN/CREAT (test code = [...] = 2219) 59 U/L Luis M RoperHEMOGLOBIN [id number] 00:00:00* Test Item Value Reference Range Interpretation Comme manuel HEMOGLOBIN A1c (test code = 00555) 5.7 % Luis M RoperCBC W/AUTO [id number] 00:00:00* Test Item Value Reference Range Interpretation [...] ABS NUCLEATED RBCS (test cod e = 37883) 0.00 K/UL Luis M [id number] 00:00:00* Test Item Value Reference Range Interpretation Comme nts TSH, THIRD GENERATION (test code = 2821) 0.900 UIU/ML Luis M RoperLIPID [id number] 00:00:00* Test Item Value Reference Range Interpretation Comme nts CHOLESTEROL (test code = 2210) 206 MG/DL TRIGLYCERIDES (test code = 2232) 286 MG/DL HDL CHOLESTEROL (test code = 2220) 52 MG/DL CALC LDL CHOL (test code = 2237) 113 MG/DL RISK RATIO LDL/HDL (test cod e = 2238) 2.17 RATIO Luis M RoperCOMPREHENSIVE METABOLIC [id number] 00:00:00* Test Item Value Reference Range Interpretation Comme nts GLUCOSE (test code = 2217) 121 MG/DL BUN (test code = 2208) 19 MG/DL CREATININE (test code = 2214) 0.94 MG/DL eGFR AMER. (test cod e = 23167) 110 ML/MIN/1.73 eGFR NON- AMER. (test code = 28615) 95 ML/MIN/1.73 CALC BUN/CREAT (test code = [...] 1.4 RATIO BILIRUBIN, TOTAL (test code = 7) 0.2 MG/DL ALKALINE PHOSPHATASE (test code = 2204) 82 U/L AST (test code = 2218) 28 U/L ALT (test code = 2219) 59 U/L Luis M RoperHEMOGLOBIN [id number] 00:00:00* Test Item Value Reference Range Interpretation Comme nts HEMOGLOBIN A1c (test code = 03490) 5.7 % Luis M RoperCBC W/AUTO [id number] 00:00:00* Test Item Value Reference Range Interpretation [...] ABS NUCLEATED RBCS (test cod e = 24349) 0.00 K/UL Luis M [id number] 00:00:00* Test Item Value Reference Range Interpretation Comme nts TSH, THIRD GENERATION (test code = 2821) 0.900 UIU/ML Luis M RoperLIPID [id number] 00:00:00* Test Item Value Reference Range Interpretation Comme nts CHOLESTEROL (test code = 2210) 206 MG/DL TRIGLYCERIDES (test code = 2232) 286 MG/DL HDL CHOLESTEROL (test code = 2220) 52 MG/DL CALC LDL CHOL (test code = 2237) 113 MG/DL RISK RATIO LDL/HDL (test cod e = 2238) 2.17 RATIO Luis M RoperCOMPREHENSIVE METABOLIC [id number] 00:00:00* Test Item Value Reference Range Interpretation Comme nts GLUCOSE (test code = 2217) 121 MG/DL BUN (test code = 2208) 19 MG/DL CREATININE (test code = 2214) 0.94 MG/DL eGFR AMER. (test cod e = 63595) 110 ML/MIN/1.73 eGFR NON- AMER. (test code = 45379) 95 ML/MIN/1.73 CALC BUN/CREAT (test code = [...] = 2219) 59 U/L Luis M RoperHEMOGLOBIN [id number] 00:00:00* Test Item Value Reference Range Interpretation Comme nts HEMOGLOBIN A1c (test code = 91813) 5.7 % Luis M RoperCBC W/AUTO [id number] 00:00:00* Test Item Value Reference Range Interpretation [...] ABS NUCLEATED RBCS (test cod e = 79447) 0.00 K/UL Luis M [id number] 00:00:00* Test Item Value Reference Range Interpretation Comme nts TSH, THIRD GENERATION (test code = 2821) 0.900 UIU/ML Luis M RoperLIPID [id number] 00:00:00* Test Item Value Reference Range Interpretation Comme nts CHOLESTEROL (test code = 2210) 206 MG/DL TRIGLYCERIDES (test code = 2232) 286 MG/DL HDL CHOLESTEROL (test code = 2220) 52 MG/DL CALC LDL CHOL (test code = 2237) 113 MG/DL RISK RATIO LDL/HDL (test cod e = 2238) 2.17 RATIO Luis M RoperCOMPREHENSIVE METABOLIC [id number] 00:00:00* Test Item Value Reference Range Interpretation Comme nts GLUCOSE (test code = 2217) 121 MG/DL BUN (test code = 2208) 19 MG/DL CREATININE (test code = 2214) 0.94 MG/DL eGFR AMER. (test cod e = 61808) 110 ML/MIN/1.73 eGFR NON- AMER. (test code = 03052) 95 ML/MIN/1.73 CALC BUN/CREAT (test code = [...] = 2219) 59 U/L Luis M RoperHEMOGLOBIN [id number] 00:00:00* Test Item Value Reference Range Interpretation Comme nts HEMOGLOBIN A1c (test code = 96264) 5.7 % Luis M RoperCBC W/AUTO [id number] 00:00:00* Test Item Value Reference Range Interpretation [...] ABS NUCLEATED RBCS (test cod e = 83071) 0.00 K/UL Luis M [id number] 00:00:00* Test Item Value Reference Range Interpretation Comme nts TSH, THIRD GENERATION (test code = 2821) 0.900 UIU/ML Luis M RoperLIPID [id number] 00:00:00* Test Item Value Reference Range Interpretation Comme nts CHOLESTEROL (test code = 2210) 206 MG/DL TRIGLYCERIDES (test code = 2232) 286 MG/DL HDL CHOLESTEROL (test code = 2220) 52 MG/DL CALC LDL CHOL (test code = 2237) 113 MG/DL RISK RATIO LDL/HDL (test cod e = 2238) 2.17 RATIO Luis M RoperCOMPREHENSIVE METABOLIC [id number] 00:00:00* Test Item Value Reference Range Interpretation Comme nts GLUCOSE (test code = 2217) 121 MG/DL BUN (test code = 2208) 19 MG/DL CREATININE (test code = 2214) 0.94 MG/DL eGFR AMER. (test cod e = 81090) 110 ML/MIN/1.73 eGFR NON- AMER. (test code = 35649) 95 ML/MIN/1.73 CALC BUN/CREAT (test code = [...] = 2219) 59 U/L Luis M RoperHEMOGLOBIN [id number] 00:00:00* Test Item Value Reference Range Interpretation Comme nts HEMOGLOBIN A1c (test code = 25365) 5.7 % Luis M RoperCOMPREHENSIVE METABOLIC [id number] 00:00:00* Test Item Value Reference Range Interpretation Comme nts GLUCOSE (test code = 2217) 121 MG/DL BUN (test code = 2208) 19 MG/DL CREATININE (test code = 2214) 0.94 MG/DL eGFR AMER. (test cod e = 86419) 110 ML/MIN/1.73 eGFR NON- AMER. (test code = 25782) 95 ML/MIN/1.73 CALC BUN/CREAT (test code = [...] code = 2219) 59 U/L Luis M RoperCBC W/AUTO [id number] 00:00:00* Test Item Value Reference Range Interpretation [...] ABS NUCLEATED RBCS (test cod e = 51163) 0.00 K/UL Luis M [id number] 00:00:00* Test Item Value Reference Range Interpretation Comme nts TSH, THIRD GENERATION (test code = 2821) 0.900 UIU/ML Luis M F AustinLIPID [id number] 00:00:00* Test Item Value Reference Range Interpretation Comme nts CHOLESTEROL (test code = 2210) 206 MG/DL TRIGLYCERIDES (test code = 2232) 286 MG/DL HDL CHOLESTEROL (test code = 2220) 52 MG/DL CALC LDL CHOL (test code = 2237) 113 MG/DL RISK RATIO LDL/HDL (test cod e = 2238) 2.17 RATIO Luis M Carroll AustinHEMOGLOBIN [id number] 00:00:00* Test Item Value Reference Range Interpretation Comme nts HEMOGLOBIN A1c (test code = 98502) 5.7 % Luis M RoperCOMPREHENSIVE METABOLIC [id number] 00:00:00* Test Item Value Reference Range Interpretation Comme nts GLUCOSE (test code = 2217) 121 MG/DL BUN (test code = 2208) 19 MG/DL CREATININE (test code = 2214) 0.94 MG/DL eGFR AMER. (test cod e = 54101) 110 ML/MIN/1.73 eGFR NON- AMER. (test code = 39692) 95 ML/MIN/1.73 CALC BUN/CREAT (test code = [...] = 2219) 59 U/L Luis M RoperHEMOGLOBIN [id number] 00:00:00* Test Item Value Reference Range Interpretation Comme manuel HEMOGLOBIN A1c (test code = 90304) 5.7 % Luis M RoperCBC W/AUTO [id number] 00:00:00* Test Item Value Reference Range Interpretation [...] ABS NUCLEATED RBCS (test cod e = 98051) 0.00 K/UL [facility] [id number] 00:00:00* Test Item Value Reference Range Interpretation [...] ABS NUCLEATED RBCS (test cod e = 46226) 0.00 K/UL Luis M [id number] 00:00:00* Test Item Value Reference Range Interpretation Comme nts TSH, THIRD GENERATION (test code = 2821) 0.900 UIU/ML Luis M Carroll AustinLIPID [id number] 00:00:00* Test Item Value Reference Range Interpretation Comme nts CHOLESTEROL (test code = 2210) 206 MG/DL TRIGLYCERIDES (test code = 2232) 286 MG/DL HDL CHOLESTEROL (test code = 2220) 52 MG/DL CALC LDL CHOL (test code = 2237) 113 MG/DL RISK RATIO LDL/HDL (test cod e = 2238) 2.17 RATIO Luis M [id number] 00:00:00* Test Item Value Reference Range Interpretation Comme nts TSH, THIRD GENERATION (test code = 2821) 0.900 UIU/ML Luis M Carroll AustinLIPID [id number] 00:00:00* Test Item Value Reference Range Interpretation Comme nts CHOLESTEROL (test code = 2210) 206 MG/DL TRIGLYCERIDES (test code = 2232) 286 MG/DL HDL CHOLESTEROL (test code = 2220) 52 MG/DL CALC LDL CHOL (test code = 2237) 113 MG/DL RISK RATIO LDL/HDL (test cod e = 2238) 2.17 RATIO Luis M Carroll AustinCOMPREHENSIVE METABOLIC [id number] 00:00:00* Test Item Value Reference Range Interpretation Comme nts GLUCOSE (test code = 2217) 121 MG/DL BUN (test code = 2208) 19 MG/DL CREATININE (test code = 2214) 0.94 MG/DL eGFR AMER. (test cod e = 06470) 110 ML/MIN/1.73 eGFR NON- AMER. (test code = 55068) 95 ML/MIN/1.73 CALC BUN/CREAT (test code = [...] = 2219) 59 U/L Luis M RoperHEMOGLOBIN [id number] 00:00:00* Test Item Value Reference Range Interpretation Comme [facility] HEMOGLOBIN A1c (test code = 01010) 5.7 % Luis M RoperCBC W/AUTO [id number] 00:00:00* Test Item Value Reference Range Interpretation Comme [facility] WBC (test code = 1001) 11.5 K/UL [...] ABS NUCLEATED RBCS (test cod e = 62164) 0.00 K/UL Luis M [id number] 00:00:00* Test Item Value Reference Range Interpretation Comme nts TSH, THIRD GENERATION (test code = 2821) 0.900 UIU/ML Luis M RoperLIPID [id number] 00:00:00* Test Item Value Reference Range Interpretation [...] SARS-CoV-2 Rapid ID NOW (test code = 06110-1) Not Detected Not Detected TRES (test code = TRES) ID NOW COVID-19 As say is an isothermal nucleic acid amplification test intended for the qualitative detection of nucleic acid from SARS-CoV-2 viral RNA in nasopharyngeal ([employer]) specimens. It is used under Emergency Use [...] clinically indicated. Lab Interpretation (test code = 61644-3) Normal [facility] Notes Date/Time Note Provider Source [facility]2025-07-29 00:00:00 [facility]2025-05-30 00:00:00 [facility]2025-05-23 00:00:00 [facility]2025-05-09 00:00:00 [facility]2025-05-01 00:00:00 [facility]2025-04-08 00:00:00 [facility]2025-03-27 00:00:00 [facility]2025-02-05 00:00:00 [facility]2025-01-20 00:00:00 [facility]2024-11-13 00:00:00 [facility]2024-10-22 00:00:00 [facility]2024-10-14 00:00:00 [facility]2024-08-22 00:00:00 [facility]2024-07-25 00:00:00 [facility]2024-05-30 00:00:00 [facility]2023-08-17 23:57:17 Pt given printed and verbal discharge [...] no apparent distress. [id number] 22:57:41 Report given to JACINDA Cifuentes Rupa Bergeron [facility] [id number] 21:40:28 Pt states he has been having cough for the last couple of weeks, pt states that on Sunday he was seen at the [facility] and given Cefdiner 300 mg , pt [...] test for COVID Cecy Ocasio [facility]"
[2025-07-25] MEDS ORDERED: IPRATROPIUM BROM 0.5MG/2.5ML ONE (21:18)
[2025-07-25] MEDS ORDERED: ALBUTEROL 2.5 MG/3 ML NEB SOL ONE (21:18)
[2025-07-25] MEDS ORDERED: METHYLPREDNISOLONE 125 MG INJ ONE (21:18)
[2025-07-25 21:22] LABS: Absolute Lymphocytes (CBC) 2.9 K/uL (0.7-4.9); Hematocrit 38.5 % (39.6-49.0); Hemoglobin 13.3 g/dL (13.6-17.9); MCH 31.5 pg (27.0-35.0); MCHC 34.5 g/dL (32.0-36.0); MCV 91.3 fL (80-100); MPV 9.0 fL (7.6-11.3); Nucleated RBC Absolute Count 0.0 (0-0); Nucleated Red Blood Cells % 0.0 % (0-0); RBC Red Blood Cell Count 4.21 M/uL (4.33-5.43); White Blood Count 11.20 thou/uL (4.3-10.9)
[2025-07-25 21:30] LABS: D-Dimer 0.534 FEUug/mL (0-0.500); PT Prothrombin Time 12.1 SECONDS (10-13.0); Protime INR 1.07
[2025-07-25 21:40] LABS: ALT/SGPT 50 U/L (16-61); AST/SGOT 22 U/L (15-37); Albumin 3.3 g/dL (3.4-5.0); Albumin/Globulin Ratio 0.9 (1.1-1.8); Alkaline Phosphatase 66 U/L (45-117); Anion Gap 9.6 mEq/L (5.0-15.0); BUN Blood Urea Nitrogen 14 mg/dL (7-18); Bilirubin Indirect, Calculated 0.0 mg/dL (0.2-0.8); Globulin 3.6 g/dL (2.3-3.5); Glucose Level 120 mg/dL (74-106); Magnesium 2.0 mg/dL (1.6-2.4); NT PRO-BNP 147 pg/mL (<125); Potassium 3.6 mEq/L (3.5-5.1); Troponin High Sensitivity 4.3 pg/mL (<58.9)
[2025-07-25 21:56] LABS: Influenza A Ag Negative; Influenza B Ag Negative; SARS-CoV-2 Antigen Rapid Res Negative (Negative)
--- NOTE | 2025-07-25 23:58 | RAD REPORT ---
EXAMINATION: ONE VIEW CHEST XR CLINICAL INDICATION: Male, 54 years old.,Chest pain;SOB TECHNIQUE: Frontal chest projection is submitted. Examination is limited by patient positioning and t echnique. COMPARISON: 09/05/2024 FINDINGS: The lungs are well inflated and clear. No pneumothorax or sizable effusion. The heart is normal in s ize. Mediastinal contours are unremarkable. IMPRESSION: No acute intrathoracic abnormalities.
--- NOTE | 2025-07-26 03:09 | EDPHYS ---
Physician Documentation [facility] Name: Caesar Hurt Age: 54 yrs Sex: Male : 1970 Arrival Date: 07/25/2025 Time: 20:26 Bed 8 Private MD: ED Physician Gentry Lyle HPI: 07/25 21:05 This 54 yrs old Male presents to ER via Ambulatory with complaints of cp Breathing Difficulty. 21:05 The patient has shortness of breath at rest. Onset: The symptoms/episode began/occurred cp yesterday, and became worse today. 21:05 Associated signs and symptoms: Pertinent positives: cough times 3 weeks, Pertinent cp negatives: chest pain, diaphoresis, dizziness, fever, hemoptysis, vomiting. Severity of symptoms: in the emergency department the symptoms are unchanged despite home interventions. Historical: - Allergies: 20:43 No Known Allergies; dd2 - PMHx: 20:43 Asthma; Hypertensive disorder; dd2 - PSHx: 20:43 None; dd2 - Immunization history:: Adult Immunizations up to date. - Infectious Disease History:: Denies. - Social history:: Smoking status: Patient denies any tobacco usage or history of. ROS: 21:10 Constitutional: Negative for body aches, chills, fever, poor PO intake, cp 21:10 Eyes: Negative for injury, pain, redness, and discharge, cp 21:10 ENT: Negative for drainage from ear(s), ear pain, sore throat, difficulty swallowing, difficulty handling secretions, 21:10 Cardiovascular: Negative for chest pain, edema, palpitations, 21:10 Respiratory: Positive for shortness of breath, at rest. wheezing, Negative for cough, 21:10 Abdomen/GI: Negative for abdominal pain, vomiting, diarrhea, constipation, 21:10 Back: Negative for pain at rest, pain with movement, 21:10 Neuro: Negative for altered mental status, headache, numbness, syncope, weakness, 21:10 All other systems are negative, Exam: 21:15 Constitutional: The patient appears in no acute distress, alert, awake, cp non-diaphoretic, non-toxic, well developed, well nourished, uncomfortable, 21:15 Head/Face: Normocephalic, atraumatic. cp 21:15 Eyes: Periorbital structures: appear normal, Conjunctiva: normal, no exudate, no injection, Sclera: no appreciated abnormality, Lids and lashes: appear normal, bilaterally, 21:15 ENT: External ear(s): are unremarkable, Ear canal(s): are normal, TM's: dullness, bilaterally, Nose: is normal, Mouth: Lips: moist, Oral mucosa: moist, Posterior pharynx: Airway: no evidence of obstruction, patent, Voice: is normal, 21:15 Neck: ROM/movement: is normal, is supple, without pain, no range of motions limitations, no meningismus, 21:37 ECG was reviewed by the Attending Physician. Vital Signs: 20:42 BP 154 / 87; Pulse 59; Resp 22; Temp 98.3; Pulse Ox 99% on R/A; Weight 112 kg; dd2 21:59 BP 133 / 74; Pulse 66; Resp 18; Pulse Ox 99% ; cp4 23:36 BP 136 / 73; Pulse 68; Resp 18; Pulse Ox 99% ; cp4 07/26 00:51 BP 134 / 76; Pulse 72; Resp 18; Pulse Ox 100% ; cp4 01:30 BP 152 / 93; Pulse 74; Resp 20; Pulse Ox 97% ; vc1 02:26 BP 139 / 89; Pulse 84; Resp 18; Pulse Ox 98% ; cp4 03:14 BP 115 / 70; Pulse 66; Resp 15; Pulse Ox 96% ; vc1 MDM: 07/25 20:39 Medical Screening Exam initiated cp 22:00 Differential diagnosis: Bronchitis CHF exacerbation, pneumonia, Pneumothorax pulmonary cp edema, Pulmonary Embolism Sepsis Unstable Angina. 07/26 03:08 Data reviewed: vital signs, nurses notes, lab test result(s), EKG, radiologic studies, cp CT scan, plain films. 03:08 Antibiotic administration: The patient is discharged and will get outpatient antibiotics, Levaquin. I considered the following discharge prescriptions or medication management in the emergency department Medications were administered in the Emergency Department. See MAR. Independent interpretation of the following test(s) in the Emergency Department EKG: See my EKG interpretation above. Test considered but Not performed: Ultrasound lower extremity. Care significantly affected by the following chronic conditions: Hypertension, asthma. Counseling: I had a detailed discussion with the patient and/or guardian regarding the historical points, exam findings, and any diagnostic results supporting the discharge/admit diagnosis, lab results, radiology results, the need for outpatient follow up, a family practitioner, to return to the emergency department if symptoms worsen or persist or if there are any questions or concerns that arise at home. Response to treatment: the patient's symptoms have mildly improved after treatment, and as a result, I will discharge patient. 07/25 21:00 Order name: Basic Metabolic Panel; Complete Time: 23:22 07/25 23:22 Interpretation: Normal except: CL 109; GLUC 120. 07/25 21:00 Order name: CBC with Diff; Complete Time: 23:22 07/25 21:00 Order name: D-Dimer; Complete Time: 23:22 07/25 21:00 Order name: LFT's; Complete Time: 23:22 07/25 21:00 Order name: Magnesium; Complete Time: 23:22 07/25 21:00 Order name: NT PRO-BNP; Complete Time: 23:22 07/25 21:00 Order name: PT-INR; Complete Time: 23:22 07/25 21:00 Order name: Troponin HS; Complete Time: 23:22 07/25 21:00 Order name: Group A Streptococcus Rapid; Complete Time: 23:22 07/25 21:00 Order name: COVID-19 Ag + Flu A+B Ag; Complete Time: 23:22 07/25 21:59 Order name: Throat Culture EDPR 07/25 21:00 Order name: XRAY Chest (1 view); Complete Time: 23:59 07/25 23:59 Interpretation: Report review. 07/25 23:23 Order name: CT Chest For PE Angio 07/25 21:00 Order name: EKG; Complete Time: 21:00 07/25 21:00 Order name: Cardiac monitoring; Complete Time: 21:14 07/25 21:00 Order name: EKG - Nurse/Tech; Complete Time: 21:40 07/25 21:00 Order name: IV Saline Lock; Complete Time: 21:14 07/25 21:00 Order name: Labs collected and sent; Complete Time: 21:14 07/25 21:00 Order name: O2 Per Protocol; Complete Time: 21:14 07/25 21:00 Order name: O2 Sat Monitoring; Complete Time: 21:14 EC/11 21:37 Rate is 57 beats/min. Rhythm is regular. WI interval is normal. QRS interval is cp prolonged at 104 msec. QT interval is normal. T waves are Inverted in leads III, aVR. Interpreted by me. Reviewed by me. Administered Medications: 21:22 Drug: DuoNeb Nebulize (2.5 mg - 0.5 mg) 3 ml Nebulizer once Route: Nebulizer; cp4 07/26 00:06 Follow up: Response: No adverse reaction cp4 07/25 21:22 Drug: MethylPrednisoLONE IVP 125 mg IVP once Route: IVP; Site: right antecubital; cp4 07/26 00:06 Follow up: Response: No adverse reaction cp4 Disposition Summary: 07/26/25 03:08 Discharge Ordered Notes: Location: Home cp Problem: new cp Symptoms: have improved cp Condition: Stable cp Diagnosis - Acute bronchitis due to other specified organism cp Followup: cp - With: Private Physician - When: 2 - 3 days - Reason: Worsening of condition Discharge Instructions: - Discharge Summary Sheet cp - Acute Bronchitis, Adult cp Forms: - Medication Reconciliation Form cp - Antibiotic Education cp - Prescription Opioid Use cp - Patient Portal Instructions cp - Leadership Thank You Letter cp Prescriptions: - Bromfed DM 2-30-10 mg/5 mL Oral syrup - administer 10 milliliter ORAL route every 8 hours as needed for cold symptoms; cp 240 milliliter; Refills: 0, Product Selection Permitted - Prednisone 20 mg Oral Tablet - take 3 tablets ORAL route once daily for 5 days; 15 tablet; Refills: 0, Product cp Selection Permitted - Zithromax Z-Melo 250 mg Oral Tablet - take 1 tablet ORAL route as directed for 5 days Day 1 - take two (2) tablets cp one time. Day 2, 3, 4 , 5 take one (1) tablet once daily.; 6 tablet; Refills: 0, Product Selection Permitted Addendum: 07/29/2025 06:54 Co-signature as Attending Physician, Gentry Lyle MD I agree with the assessment and c kim plan of care. Signatures: Dispatcher [employer] Gentry Infante MD MD cha Page, Corey, PA-C PA-C Мария Gonsalez cp4 ANDRES WILSON RN RN dd2 Corrections: (The following items were deleted from the chart) 07/25 21:00 21:00 BASIC METABOLIC PANEL+C.LAB.BRZ ordered. EDMS EDMS 21:00 21:00 CBC+H.LAB.BRZ ordered. EDMS EDMS 21: 21:00 D-DIMER+COAG.LAB.BRZ ordered. EDMS EDMS 21: 21:00 HEPATIC FUNCTION+C.LAB.BRZ ordered. EDMS EDMS 21: 21:00 MAGNESIUM+C.LAB.BRZ ordered. EDMS EDMS : 21:00 PROBNP+C.LAB.BRZ ordered. EDMS EDMS 21: 21:00 PROTIME (+INR)+COAG.LAB.BRZ ordered. EDMS EDMS 21:00 21:00 Troponin High Sensitivity+C.LAB.BRZ ordered. EDMS EDMS :00 21:00 Group A Streptococcus Rapid Sc+I.LAB.BRZ ordered. EDMS EDMS 21:00 21:00 COVID-19 Ag + Flu A+B Ag+I.LAB.BRZ ordered. EDMS EDMS 23:23 23:23 Chest For PE Angio+CT.RAD.BRZ ordered. EDMS EDMS
--- NOTE | 2025-07-26 03:09 | ER ---
Nurse's Notes [facility] Name: Caesar Hurt Age: 54 yrs Sex: Male : 1970 Arrival Date: 07/25/2025 Time: 20:26 Bed 8 Private MD: Diagnosis: Acute bronchitis due to other specified organism Presentation: 07/25 20:42 Chief complaint: Patient states: HE'S HAD A COUGH FOR 3 WEEKS AND SHORTNESS OF BREATH dd2 FOR 24 HOURS. PT REPORTS HX OF ASTHMA. Coronavirus screen: cough unrelated to allergies, shortness of breath. Ebola Screen: No symptoms or risks identified at this time. Initial Sepsis Screen: Does the patient meet any 2 criteria? No. Patient's initial sepsis screen is negative. Does the patient have a suspected source of infection? No. Patient's initial sepsis screen is negative. Risk Assessment: Do you want to hurt yourself or someone else? Patient reports no desire to harm self or others. Onset of symptoms is unknown. 20:42 Method Of Arrival: Ambulatory dd2 20:42 Acuity: VALENTE 3 dd2 Triage Assessment: 20:43 General: Appears uncomfortable, Behavior is calm, cooperative, appropriate for age. dd2 Pain: Denies pain. Respiratory: Reports shortness of breath cough that is Airway is patent Respiratory effort is even, labored, Respiratory pattern is symmetrical, tachypnea Onset: The symptoms/episode began/occurred today, the patient has mild shortness of breath. Historical: - Allergies: 20:43 No Known Allergies; dd2 - PMHx: 20:43 Asthma; Hypertensive disorder; dd2 - PSHx: 20:43 None; dd2 - Immunization history:: Adult Immunizations up to date. - Infectious Disease History:: Denies. - Social history:: Smoking status: Patient denies any tobacco usage or history of. Screenin:14 [facility] ED Fall Risk Assessment (Adult) History of falling in the last 3 months, cp4 including since admission No falls in past 3 months (0 pts) Confusion or Disorientation No (0 pts) Intoxicated or Sedated No (0 pts) Impaired Gait No (0 pts) Mobility Assist Device Used No (0 pt) Altered Elimination No (0 pt) Score/Fall Risk Level 0 - 2 = Low Risk Oriented to surroundings, Maintained a safe environment, Assessed \T\ reinforced patient's understanding of fall precautions, Hourly rounding (assess needs \T\ fall precautionary measures) done. Abuse screen: Denies threats or abuse. Denies injuries from another. Nutritional screening: No deficits noted. Tuberculosis screening: No symptoms or risk factors identified. Assessment: 21:14 General: Appears in no apparent distress. comfortable, Behavior is calm, cooperative, cp4 appropriate for age. Pain: Denies pain. Neuro: Level of Consciousness is awake, alert, obeys commands, Oriented to person, place, time, situation. Cardiovascular: Patient's skin is warm and dry. Rhythm is sinus rhythm. Respiratory: Reports cough that is non-productive, Airway is patent Respiratory effort is even, unlabored, Breath sounds are clear bilaterally. GI: No signs and/or symptoms were reported involving the gastrointestinal system. : No signs and/or symptoms were reported regarding the genitourinary system. EENT: No signs and/or symptoms were reported regarding the EENT system. Derm: No signs and/or symptoms reported regarding the dermatologic system. Musculoskeletal: No signs and/or symptoms reported regarding the musculoskeletal system. 22:13 Reassessment: Patient appears in no apparent distress at this time. Patient and/or kj2 family updated on plan of care and expected duration. Pain level reassessed. Patient is alert, oriented x 3, equal unlabored respirations, skin warm/dry/pink. 23:15 Reassessment: Patient appears in no apparent distress at this time. Patient and/or cp4 family updated on plan of care and expected duration. Pain level reassessed. Patient is alert, oriented x 3, equal unlabored respirations, skin warm/dry/pink. 12 00:15 Reassessment: Patient appears in no apparent distress at this time. Patient and/or cp4 family updated on plan of care and expected duration. Pain level reassessed. Patient is alert, oriented x 3, equal unlabored respirations, skin warm/dry/pink. 01:06 Reassessment: Patient appears in no apparent distress at this time. Patient and/or cp4 family updated on plan of care and expected duration. Pain level reassessed. Patient is alert, oriented x 3, equal unlabored respirations, skin warm/dry/pink. 01:31 Reassessment: Patient appears in no apparent distress at this time. No changes from vc1 previously documented assessment. Patient and/or family updated on plan of care and expected duration. Pain level reassessed. Patient is alert, oriented x 3, equal unlabored respirations, skin warm/dry/pink. 03:13 Reassessment: Patient appears in no apparent distress at this time. Patient and/or vc1 family updated on plan of care and expected duration. Pain level reassessed. Patient is alert, oriented x 3, equal unlabored respirations, skin warm/dry/pink. Patient states symptoms have improved. Vital Signs: 07/25 20:42 BP 154 / 87; Pulse 59; Resp 22; Temp 98.3; Pulse Ox 99% on R/A; Weight 112 kg; dd2 21:59 BP 133 / 74; Pulse 66; Resp 18; Pulse Ox 99% ; cp4 23:36 BP 136 / 73; Pulse 68; Resp 18; Pulse Ox 99% ; cp4 07/26 00:51 BP 134 / 76; Pulse 72; Resp 18; Pulse Ox 100% ; cp4 01:30 BP 152 / 93; Pulse 74; Resp 20; Pulse Ox 97% ; vc1 02:26 BP 139 / 89; Pulse 84; Resp 18; Pulse Ox 98% ; cp4 03:14 BP 115 / 70; Pulse 66; Resp 15; Pulse Ox 96% ; vc1 ED Course: 07/25 20:28 Patient arrived in ED. mr 20:39 Gentry Anton [facility]C [facility]. cp 20:39 Gentry Lyle MD is Attending Physician. cp 20:43 Triage completed. dd2 20:43 Arm band placed on right wrist. dd2 21:14 Мария Vann is Primary Nurse. cp4 21:14 Bed in low position. Call light in reach. Side rails up X2. cp4 21:14 No provider procedures requiring assistance completed. Initial lab(s) drawn, by me, cp4 sent to lab. COVID swab sent to lab. Flu and/or RSV swab sent to lab. Strep swab sent to lab. Inserted saline lock: 20 gauge in right antecubital area, using aseptic technique. Blood collected. Flushed with 10 mL NS. 21:40 EKG done, by ED staff, reviewed by Gentry Anton PA-C. oe 21:57 XRAY Chest (1 view) In Process Unspecified. EDMS 10/12 00:12 CT Chest For PE Angio In Process Unspecified. EDMS 03:49 Provided Education on: shortness of breath. cp4 03:49 intact, bleeding controlled, No redness/swelling at site. Pressure dressing applied. cp4 Administered Medications: 07/25 21:22 Drug: DuoNeb Nebulize (2.5 mg - 0.5 mg) 3 ml Nebulizer once Route: Nebulizer; cp4 07/26 00:06 Follow up: Response: No adverse reaction cp4 07/25 21:22 Drug: MethylPrednisoLONE IVP 125 mg IVP once Route: IVP; Site: right antecubital; cp4 07/26 00:06 Follow up: Response: No adverse reaction cp4 Medication: 07/25 21:14 VIS not applicable for this client. cp4 Outcome: 07/26 03:08 Discharge ordered by MD. cp 03:49 Discharged to home via wheelchair, cp4 03:49 Condition: stable 03:49 Discharge instructions given to patient, family, Instructed on discharge instructions, follow up and referral plans. medication usage, Demonstrated understanding of instructions, follow-up care, medications, Prescriptions given X 3, 03:50 Patient left the ED. cp4 Signatures: Dispatcher [employer] EDMS Karlee Fernández, Reg Reg Gentry Anton, PA-C PA-C Eleazar Stone Vanessa RN RN vc1 Мария Vann cp4 Neeta Tello RN RN kj2 ANDRES WILSON RN RN dd2
--- NOTE | 2025-07-26 04:01 | RAD REPORT ---
CLINICAL HISTORY: Cough;SOB COMPARISON: None. TECHNIQUE: CT CHEST ANGIOGRAPHY WITH IV CONTRAST on 07/25/2025 11:23 PM CDT. MIPS reconstructions wer e generated. This exam was performed according to our departmental dose-optimization program, which includes autom ated exposure control, adjustment of the mA and/or kV according to patient size and/or use of iterative reconstruction technique. MIP images were generated. FINDINGS: Thoracic aorta is normal in course and caliber without aneurysm or dissection. Pulmonary arteries are adequately opacified without acute or chronic filling defects. The heart is normal in size. There is no pericardial effusion. Intrathoracic lymph nodes are not enla rged. There is no pleural effusion, pleural thickening or pneumothorax. Central airways are patent. Lungs a re clear with no consolidation, mass or interstitial lung disease. There are no acute abnormalities within the limited images of the upper abdomen. There are no acute osseous findings. No suspicious bony lesions. IMPRESSION: No aortic dissection or aneurysm. No pulmonary embolus. No pneumonia. Electronically signed by: Fernando Tirado MD 07/26/2025 02:55 AM CDT RP Due to temporary technical issues with the [employer]ACS/[employer] reporting system, reports are being sherice d by the in-house radiologist without review as a courtesy to ensure prompt reporting the interpreting radiologist is fully responsible for the content of the report. Transcribed Date/Time: 07/26/2025 4:01 AM
[2025-07-26 04:07] VITALS: TEMP 98.3
[2025-07-26 04:20] VITALS: BP 115/70; O2SAT 96
== END 2025-07-26 03:50 | disposition home or self-care (01) ==
LOC: ER 20:26
DX: J20.8 Acute bronchitis due to other specified organisms (principal); Z11.52 Encounter for screening for COVID-19
CPT/HCPCS: 36415; 71045; 71275; 80048; 80076; 83735; 83880; 84484; 85025; 85379; 85610; 87070; 87428; 93005; 96374; 99285; J2919; J7613; J7644; Q9967